=== PATIENT | female | born 1950 | race Caucasian/White ===

== ENCOUNTER 2017-12-29 08:00 | Inpatient (IN) | payer OTHER ==
--- NOTE | 2017-12-29 09:39 | RAD REPORT ---
EXAM DESCRIPTION: Tra Berry And Lat (2 Views)12/29/2017 9:15 am CLINICAL HISTORY: Hypertension/preop for knee replacement COMPARISON: None FINDINGS: The lung interstitial pattern is mildly prominent. The heart is mildly enlarged IMPRESSION: Mild bilateral interstitial lung opacities probably are chronic. Mild superimposed inter stitial pulmonary edema could also have this appearance
[2017-12-29 11:11] LABS: Protime INR 0.95
[2017-12-29 11:14] LABS: Absolute Lymphocytes (CBC) 1.9 K/uL (0.7-4.9); Absolute Monocytes 0.5 K/uL (0.1-1.3); Absolute Neutrophil 3.4 K/uL (1.8-8.0); Basophils % 1.1 % (0-1.3); Eosinophils % 4.3 % (0-4.4); Lymphocytes % 30.9 % (15.3-44.8); MCH 31.2 pg (27.0-35.0); MCV 92.7 fL (80-100); MPV 9.1 fL (7.6-11.3); Monocytes % 8.5 % (3.3-12.3); Potassium 3.9 mmol/L (3.5-5.1); RBC Red Blood Cell Count 4.21 M/uL (3.86-4.86)
--- NOTE | 2017-12-30 11:00 | EKG ---
Test Date: 2017-12-29 Test Time: 09:05:42 Drafter Mechanical: MERCEDES MEASUREMENT RESULTS: Intervals: Rate: 61 ME: 166 QRSD: 80 QT: 404 QTc: 406 [place]: P: 23 ME: 166 QRS: -4 T: 4 INTERPRETIVE STATEMENTS: Normal sinus rhythm Normal ECG Compared to ECG 01/14/2006 06:40:00 No significant changes Electronically Signed On 12-30-17 10:56:04 CDT by Wei Mcintyre
[2018-01-03] MEDS ORDERED: CEFAZOLIN/SWI 2gm 2 GM/20 ML SYR IV SCH (06:00)
--- OUTSIDE RECORDS SUMMARY | 2018-01-03 06:09 | XMS REPORT | Clinical Summary ---
:1950 Author Organization [facility] Address [address] [place] [address] Care Team Providers Name Role Phone Merlin Serrato MD Primary Care Provider Allergies Active Allergy Reactions Severity Noted Date Comments No Known Drug Allergies 09/25/2015 Nsaids (Non-Steroidal Anti-Inflammatory 08/10/2016 Ulcer disease Drug) Current Medications Prescription Sig. Disp. Refills Start Date End Date Status HYDROcodone-acetami Take 1 tablet by 0 07/08/2016 Active nophen (NORCO) mouth 2 (two) 5-325 mg per tablet times a day as needed. for pain metoprolol Take 100 mg by Active succinate XL mouth daily. (TOPROL-XL) 100 mg 24 hr tablet levothyroxine Take 112 mcg by Active (SYNTHROID, mouth every LEVOXYL) 112 mcg morning. tablet aspirin (ECOTRIN) Take 81 mg by Active 81 MG enteric mouth daily. coated tablet cholecalciferol, Take 2,000 Units Active vitamin D3, by mouth daily. (VITAMIN D3) 2,000 unit capsule capsule meloxicam (MOBIC) TAKE 1 TABLET BY 30 tablet 0 12/14/2016 Active 15 mg tablet MOUTH EVERY DAY ibuprofen Take 200 mg by Active (ADVIL,MOTRIN) 200 mouth every 6 MG tablet (six) hours as needed for mild pain. ketoconazole Apply 1 Active (NIZORAL) 2 % cream application topically 2 (two) times a day. diclofenac Apply topically 3 Tube 5 06/29/2017 Active (VOLTAREN) 1 % gel 4 (four) times a day. lidocaine Apply topically 35.44 g 0 08/10/2016 (XYLOCAINE) 5 % as needed for 8 ointment mild pain. diclofenac Apply topically 3 Tube 5 08/10/2016 Discontinued (VOLTAREN) 1 % gel 4 (four) times a 8 day. Active Problems Problem Noted Date Hypothyroidism 09/25/2015 Osteoarthritis 09/25/2015 H/O GI ulcers 09/25/2015 Fatigue H/O heartburn Encounters Date Type Specialty Care Team Description 07/10/2017 Orders Only Rheumatology Elsi Chang MD 07/06/2017 Orders Only Rheumatology Elsi Chang MD 06/29/2017 Office Visit Rheumatology Hermelinda Ayala Primary osteoarthritis involving multiple joints (Primary Dx); MD Kelli Hypothyroidism, unspecified type; Pain in joint, multiple sites; Fatigue, unspecified type; Rash 01/14/2017 Refill Rheumatology Hermelinda Ayala MD after 01/02/2017 Family History Medical History Relation Name Comments Rheum arthritis Cousin Relation Name Status Comments Brother (Age 51) COPD Brother (Age 50) massive stroke Cousin Father (Age 84) heart disease Social History Tobacco Use Types Packs/Day Years Used Date Unknown If Ever Smoked Smokeless Tobacco: Never Used Alcohol Use Drinks/Week oz/Week Comments No not found Sex Assigned at Date Recorded Not on file Last Filed Vital Signs Vital Sign Reading Time Taken Blood Pressure 131/71 06/29/2017 11:33 AM CDT Pulse 72 06/29/2017 11:33 AM CDT Temperature - - Respiratory Rate - - Oxygen Saturation - - Inhaled Oxygen Concentration - - Weight 81.6 kg (180 lb) 06/29/2017 11:33 AM CDT Height 154.9 cm (5' 1") 06/29/2017 11:33 AM CDT Body Mass Index 34.01 06/29/2017 11:33 AM CDT Plan of Treatment Health Maintenance Due Date Last Done Comments BREAST CANCER SCREENING 2000 COLON CANCER SCREENING 2000 SHINGRIX VACCINE (#1) 2000 ZOSTER VACCINE 2010 PNEUMOCOCCAL POLYSACCHARIDE VACCINE AGE 65 AND OVER 10/22/2015 PNEUMOCOCCAL-13 10/22/2015 INFLUENZA VACCINE 11/08/2017 Procedures Procedure Name Priority Date/Time Associated Diagnosis Comments [id number] Routine 06/30/2017 12:00 AM CDT XR KNEE 3 VW LEFT Routine 06/30/2017 12:00 AM CDT XR KNEE 3 VW RIGHT Routine 06/30/2017 12:00 AM CDT XR HIPS BILATERAL AP Routine 06/30/2017 12:00 LATERAL W AP PELVIS AM CDT GA ARTHROCENTESIS Routine 06/29/2017 11:20 Primary Results for this ASPIR&/INJ MAJOR AM CDT osteoarthritis procedure are in JT/BURSA W/O US involving multiple the results joints section. after 01/02/2017 Results Miscellaneous Lab Result (06/30/2017) Specimen Blood Narrative Performed At XR Knee 3 Vw Right (06/30/2017) Narrative Performed At XR Knee 3 Vw Left (06/30/2017) Narrative Performed At XR Hips Bilateral Ap Lateral W Ap Pelvis (06/30/2017) Narrative Performed At Large Joint Arthrocentesis (06/29/2017 11:20 AM) Narrative Performed At Hermelinda Ayala MD 06/29/2017 12:17 PM Large Joint Arthrocentesis Consent given by: patient Site marked: site marked Supporting Documentation Indications: pain Procedure Details Preparation: Patient was prepped and draped in the usual sterile fashion Location: knee - Bilateral knee Right side: Needle size: 23 G Right knee medications administered: 80 mg methylPREDNISolone acetate 80 mg/mL; 0.5 mL lidocaine 10 mg/mL (1 %) Patient tolerance: patient tolerated the procedure well with no immediate complications Left side: Needle size: 23 G Left knee medications administered: 80 mg methylPREDNISolone acetate 80 mg/mL; 0.5 mL lidocaine 10 mg/mL (1 %) Patient tolerance: patient tolerated the procedure well with no immediate complications after 01/02/2017 Insurance Payer Benefit Plan / Group Subscriber ID Type Phone Address [facility] xxxxxxxxxxx Commercial MEDICARE MEDICARE PART A AND B xxxxxxxxxx Medicare [place], [place] Work: [address] y [phone] [place] [phone] Home: [phone] [facility]
[2018-01-03] MEDS ORDERED: Ringers Lactate 1,000 ML IV ONE ×3 (06:24→12:07)
[2018-01-03] MEDS ORDERED: SCOPOLAMINE HYDROBROMIDE PATCH TD ONE (06:31)
[2018-01-03] MEDS ORDERED: FENTANYL CITR 250 MCG/5 ML ONE (06:58)
[2018-01-03] MEDS ORDERED: MIDAZOLAM HCL 2 MG/2 ML INJ ONE (06:58)
[2018-01-03] MEDS ORDERED: DEXAMETHASONE 4 MG/ML VIAL ONE (06:58)
[2018-01-03] MEDS ORDERED: ROPLVACAINE HCL 40 ML ONE (06:58)
[2018-01-03] MEDS ORDERED: PROPOFOL 200 MG/20 ML VIAL IV ONE (06:58)
[2018-01-03] MEDS ORDERED: LIDOCAINE 2% MPF 5 ML VIAL ONE (07:33)
[2018-01-03] MEDS ORDERED: BUPIVACA 0.5%/EPI 0.0005%/PF 30 ML VIAL ONE (07:35)
[2018-01-03] MEDS ORDERED: GLYCOPYRROLATE 0.2 MG/ML SYR ONE (07:59)
[2018-01-03] MEDS ORDERED: TRANEXAMIC ACID 1,000 MG in NA CHLORIDE 0.9% 50 ML IV ONE (08:00)
[2018-01-03] MEDS ORDERED: EPHEDRINE SULF 50 MG/10 ML SYR ONE (08:01)
[2018-01-03] MEDS ORDERED: MORPHINE 10 MG/ML VIAL ONE (09:34)
[2018-01-03] MEDS: MORPHINE 4 MG/ML SYR IV PRN ×5 (11:00→21:35)
[2018-01-03] MEDS ORDERED: MORPHINE 4 MG/ML SYR ONE (11:02)
--- NOTE | 2018-01-03 11:02 | P.BOP ---
Preoperative diagnosis: left knee osteoarthritis Postoperative diagnosis: same Primary procedure: left total knee arthroplasty Environmental Project Manager: NONE,NONE Estimated blood loss: 20 cc Specimen: left knee bone remnants Findings: see dictation Anesthesia: General Complications: None Drain(s): Urinary catheter Implants: Biomet Size 65 CR Femur, Size 71 Tibia, Size 34 patella, 10 mm E- poly Fluids & blood products: per anesthesia; TT: 110 mins @ 300 mmHg Transferred to: Recovery Room Condition: Good
[2018-01-03] MEDS ORDERED: DOCUSATE NA 100 MG CAP PO PRN (11:04)
--- NOTE | 2018-01-03 11:48 | RAD REPORT ---
EXAM DESCRIPTION: RAD - Knee Left 2 View - 01/03/2018 11:42 am CLINICAL HISTORY: Post Op Left TKA COMPARISON: Knee Left 3 View dated 06/30/2017; Knee Left 3 view dated 01/16/2015 FINDINGS: Left total knee arthroplasty has been performed. Small amount of air is present in the fuad nt space. No unexpected findings seen.
[2018-01-03 11:55] LABS: Hematocrit 36.2 % (36.0-45.0)
[2018-01-03] MEDS: ONDANSETRON 4 MG/2 ML VIAL IV PRN ×2 (12:05→17:03)
[2018-01-03] MEDS: FENTANYL CITR 100 MCG/2 ML ONE ×2 (12:05→12:20)
[2018-01-03] MEDS ORDERED: INFLUENZA VACCINE (for 3y+) 0.5 ML DOSE IMVAC ONE (15:00)
[2018-01-03] MEDS ORDERED: PNEUMOCOCCAL VACCINE 0.5 ML IMVAC ONE (15:00)
[2018-01-03] MEDS: CEFAZOLIN/SWI 2gm 2 GM/20 ML SYR IV SCH (17:02)
[2018-01-03] MEDS: OXYCODONE *CR* 10 MG TAB PO SCH (21:00)
[2018-01-04] MEDS: CEFAZOLIN/SWI 2gm 2 GM/20 ML SYR IV SCH ×2 (00:49→08:23)
[2018-01-04] MEDS: OXYCODONE *CR* 10 MG TAB PO SCH ×3 (00:58→21:17)
[2018-01-04] MEDS: METOPROLOL XL 100 MG TAB PO SCH (06:00)
[2018-01-04] MEDS: ENOXAPARIN 30 MG/0.3 ML SQ SCH ×2 (06:09→17:41)
[2018-01-04] MEDS: LEVOTHYROXINE SOD 0.112 MG TAB PO SCH (07:39)
[2018-01-04] MEDS: PANTOPRAZOLE 40MG TABLET PO SCH (07:39)
[2018-01-04] MEDS: VITAMIN D 1000 UNIT TAB PO SCH (08:23)
[2018-01-04] MEDS: CELECOXIB 100 MG CAPSULE PO SCH (08:23)
[2018-01-04] MEDS: PARoxetine HCl 10 MG TAB PO SCH (08:24)
[2018-01-04] MEDS: HYDROCODONE/APAP 7.5/325 MG TAB PO PRN ×3 (08:28→17:45)
[2018-01-04 08:59] LABS: Absolute Lymphocytes (CBC) 2.5 K/uL (0.7-4.9); Absolute Monocytes 1.5 K/uL (0.1-1.3); Absolute Neutrophil 8.4 K/uL (1.8-8.0); Basophils % 0.4 % (0-1.3); Eosinophils % 0.1 % (0-4.4); Hematocrit 34.3 % (36.0-45.0); Lymphocytes % 19.8 % (15.3-44.8); MCH 31.2 pg (27.0-35.0); MCV 92.2 fL (80-100); MPV 8.8 fL (7.6-11.3); Monocytes % 12.2 % (3.3-12.3); RBC Red Blood Cell Count 3.72 M/uL (3.86-4.86)
[2018-01-04 09:19] LABS: Potassium 4.3 mmol/L (3.5-5.1)
--- NOTE | 2018-01-04 09:21 | OP ---
Date of Procedure: 01/03/2018 Surgeon: Dante Partida MD Preoperative Diagnosis: Left knee osteoarthritis. Postoperative Diagnosis: Left knee osteoarthritis. Procedure Performed: Left total knee arthroplasty. Anesthesia: General LMA. Fluids: Per Anesthesia record. Estimated Blood Loss: 20 cc. Complications: None. Implants: Biomet size 65 CR femur, size 71 tibia, size 34 patella, and a 10 mm E anterior stabilized poly. Tourniquet Time: 110 minutes at 300 mmHg. Indication For Procedure: Gifty is a 67-year-old female who presented to my clinic with signs, symptoms, and x-ray findings consistent with severe left knee osteoarthritis. The patient failed conservative treatment measures. I discussed with the patient at length risks and benefits associated with operative and nonoperative treatment. She expressed understanding and elected to proceed with operative treatment. Description Of Procedure: After informed consent was obtained, the patient was identified in the preoperative holding area. The left lower extremity was marked. The patient was then taken back to the PACU where she underwent a femoral nerve block performed by Anesthesia. She was then transferred to the operating room, transferred to the operative table in a supine fashion and placed under general LMA anesthesia. The left lower extremity was then prepped and draped in usual sterile fashion. A time-out was initiated. Correct patient and procedure were confirmed and identified. The patient did receive her preoperative prophylactic antibiotics. The left lower extremity was then exsanguinated using an Esmarch, and the tourniquet was inflated to 300 mmHg. Approximately 15 cm longitudinal incision was centered over the anterior aspect of the knee. Dissection was taken down to the extensor mechanism. A median parapatellar arthrotomy was performed. The fat pad was excised as well as the medial and lateral meniscus as well as the ACL. The knee was placed in flexion , and the patella was everted. The patient had significant osteophyte formation over the superior aspect of the patella. Osteophytes were removed around the patella for later preparation for the patellar button. Next, attention was taken to the distal femur. The patient has had a preoperative MRI , and cutting block was made for her knee using the preoperative MRI Biomet System. The guide was then placed on the end of the distal femur, and the pins were placed. The distal femoral cutting block was then placed over the guide pin and held in position. An Sg wing was then used to ensure proper depth of the cut. The distal femoral cut was then made to create a flat surface. Next, the chamfer cutting block was then placed over the distal femur, and the anterior and posterior cuts were made as well as the anterior and posterior chamfer cuts. Bony remnants were then removed, and they were sent to pathology. The patient did have some tightness medially, and soft tissue was elevated off the proximal tibia medially to help loosen up some of the medial structures. Next, attention was taken to the proximal tibia. Again, the cutting guide that was made preoperatively was placed on the proximal tibial. Guide pins were placed. An alignment pierre was used to ensure proper alignment for the cuts to be made. When that was confirmed, pins were placed to lock the cutting block in position and the proximal tibia was then cut. Trial implants were placed and there was some tightness in both flexion and extension at that point. Two additional mm were cut on the proximal tibia. The trial implants were then placed, and there was good gapping and stability in both flexion and full extension. The placement of the tibial tray was then marked using the Bovie cautery on the proximal tibia. Next, attention was taken down to the patella and the patella was measured with a caliper to ensure proper depth of the cut, it was then cut and a size 34 mm patella was selected. The patella was drilled. The patella button was placed, and there was good overall stability in both flexion and extension. The femur was drilled, and the trial implant was removed. Next, proper sizing of the tibial tray was selected when using a size 71 tray. Once in proper position, it was repaired as well. The knee was then irrigated thoroughly with normal saline using a pulse lavage, and the cement was prepared on the back table. Attention was first taken to the proximal tibia. Cement was placed on the proximal tibia and within the punched out area, and the implant was then placed into position. Elevator was then used to remove the excess cement. Cement was then placed on the distal femur. The distal femoral implant was selected. A 10 mm trial poly was then placed. The knee was held in extension as the cement dried. Next, cement was placed on the undersurface of the patella and the final patella button was placed. After the cement hardened, the knee was placed through flexion and extension and it was overall with good stability. There was some small mild instability with anterior to posterior translation and an anterior stabilized poly was then selected. The 10 mm anterior stabilized poly was placed and there was overall good stability and gapping noted with the 10 mm anterior stabilized poly. The final polyethylene liner was put into position. The splint was placed. The knee was then irrigated thoroughly with normal saline. The extensor mechanism was closed using interrupted and running #1 Vicryl. Next, deep fascia was approximated using 0 Vicryl and subcutaneous tissue was approximated using a 2- 0 Vicryl. Skin was approximated using a 3-0 nylon. Sterile dressings were placed. Prior to closure, the tourniquet has been let down. Hemostasis was achieved using Bovie electrocautery. Sterile dressing was placed followed by an MARIANA bandage. The patient was awakened and transferred to PACU in stable condition. Postoperative Plan: We will admit the patient to the floor for pain control as well as consulting with Physical Therapy to aide with mobilization, the patient will likely be admitted for 2 midnights. DAYANARA/NATALIE Voice ID: [id number] Report ID: [id number] KAMILA
--- NOTE | 2018-01-04 11:19 | P.PN ---
Subjective Date of Service: 01/04/18 Chief Complaint: s/p L TKA Pain controlled. Physical Examination - Vital Signs Temperature: 97.9 F Blood Pressure: 100/47 Pulse: 67 Respirations: 20 Pulse Ox (%): 96 - Physical Exam General: Alert, In no apparent distress Musculoskeletal: Other (LLE: dressing c/d/i; in CPM; +EHL/FHL/GSC/TA; sensation grossly intact distally) - Studies Laboratory Data (last 24 hrs) 01/04/18 08:27: Sodium 139, Potassium 4.3, BUN 21 H, Creatinine 0.90, Glucose 109 H 01/04/18 08:27: WBC 12.5 H D, Hgb 11.6 L, Hct 34.3 L, Plt Count 309 01/03/18 11:25: Hgb 12.6, Hct 36.2 Assessment And Plan - Plan Gifty is a 67 yo female s/p L TKA POD#1 -PT to mobilize WBAT LLE -lovenox for DVT prophylaxis -metoprolol held this AM with low BP; will continue to monitor blood pressure -will f/u H/H and BMP later this morning
[2018-01-04] MEDS: MORPHINE 4 MG/ML SYR IV PRN (22:36)
[2018-01-05] MEDS: HYDROCODONE/APAP 7.5/325 MG TAB PO PRN ×2 (05:06→14:20)
[2018-01-05] MEDS: LEVOTHYROXINE SOD 0.112 MG TAB PO SCH (05:07)
[2018-01-05] MEDS: ENOXAPARIN 30 MG/0.3 ML SQ SCH ×2 (05:07→18:30)
[2018-01-05] MEDS: METOPROLOL XL 100 MG TAB PO SCH (05:08)
[2018-01-05] MEDS: PANTOPRAZOLE 40MG TABLET PO SCH (05:09)
--- NOTE | 2018-01-05 08:58 | P.PN ---
Subjective Date of Service: 01/05/18 Chief Complaint: s/p L TKA Subjective: Ambulating, Improving, Working w/ PT Some increased pain overnight as block wore off. Pain now controlled. Physical Examination - Vital Signs Temperature: 97.7 F Blood Pressure: 99/51 Pulse: 71 Respirations: 17 Pulse Ox (%): 90 - Physical Exam General: Alert, In no apparent distress Musculoskeletal: Other (RLE: dressing c/d/i; +EHL/FHL/GSC/TA; sensation grossly intact distally) - Studies Laboratory Data (last 24 hrs) 01/04/18 08:27: Sodium 139, Potassium 4.3, BUN 21 H, Creatinine 0.90, Glucose 109 H 01/04/18 08:27: WBC 12.5 H D, Hgb 11.6 L, Hct 34.3 L, Plt Count 309 Assessment And Plan - Plan Gifty is a 67 yo female s/p L TKA POD#2 -PT to mobilize WBAT LLE -lovenox for DVT prophylaxis -H/H stabilizing with labs yesterday -BP normalizing today; no difficulty with standing/ambulating with PT; will continue to monitor blood pressure -IP setup for HHPT on Monday -likely d/c in AM
[2018-01-05] MEDS: OXYCODONE *CR* 10 MG TAB PO SCH ×2 (09:48→21:16)
[2018-01-05] MEDS: CELECOXIB 100 MG CAPSULE PO SCH (09:49)
[2018-01-05] MEDS: VITAMIN D 1000 UNIT TAB PO SCH (09:49)
[2018-01-05] MEDS: PARoxetine HCl 10 MG TAB PO SCH (09:49)
[2018-01-05] MEDS: MORPHINE 4 MG/ML SYR IV PRN (14:54)
[2018-01-06] MEDS: HYDROCODONE/APAP 7.5/325 MG TAB PO PRN ×2 (02:36→12:50)
[2018-01-06] MEDS: LEVOTHYROXINE SOD 0.112 MG TAB PO SCH (05:24)
[2018-01-06] MEDS: PANTOPRAZOLE 40MG TABLET PO SCH (05:24)
[2018-01-06] MEDS: ENOXAPARIN 30 MG/0.3 ML SQ SCH (05:25)
[2018-01-06] MEDS: METOPROLOL XL 100 MG TAB PO SCH (06:00)
--- NOTE | 2018-01-06 09:42 | P.PN ---
Subjective Date of Service: 01/06/18 Chief Complaint: s/p L TKA Subjective: Ambulating, Improving, Working w/ PT Pain improved this AM. Ready to go home. Physical Examination - Vital Signs Temperature: 97.9 F Blood Pressure: 105/51 Pulse: 72 Respirations: 16 Pulse Ox (%): 94 - Physical Exam General: Alert, In no apparent distress Musculoskeletal: Other (LLE: incision c/d/i; no erythema or active drainage; + EHL/FHL/GSC/TA; sensation grossly intact distally) Assessment And Plan - Plan Gifty is a 67 yo female s/p L TKA POD#3 -PT to mobilize WBAT LLE -lovenox for DVT prophylaxis; discharged on Xarelto; patient has prescription for [place] and Xarelto at home already -BP stable -[facility] setup for HHPT on Monday -d/c after AM PT
[2018-01-06] MEDS: PARoxetine HCl 10 MG TAB PO SCH (09:44)
[2018-01-06] MEDS: CELECOXIB 100 MG CAPSULE PO SCH (09:44)
[2018-01-06] MEDS: OXYCODONE *CR* 10 MG TAB PO SCH (09:44)
[2018-01-06] MEDS: VITAMIN D 1000 UNIT TAB PO SCH (09:44)
--- NOTE | 2018-01-06 09:50 | P.DS ---
Admission Date: 01/03/18 Discharge Date: 01/06/18 Disposition: ROUTINE DISCHARGE Discharge Condition: GOOD Reason for Admission: s/p L TKA Procedures: L TKA Brief History of Present Illness: Gifty is a 67 yo female s/p left TKA on 01/03/2018 without complication. She was admitted to the floor postoperatively for pain control, physical therapy to aid with mobilization and strengthening and blood pressure monitoring with her history of hypertension. Hospital Course: Gifty underwent L TKA without complication. She was admitted to the floor in stable condition and remained stable throughout her hospital course. Her vital signs remained stable and her H/H was monitored. While in the hospital, she was given lovenox for DVT prophylaxis and was discharged with Xarelto and [place] which she had picked up prior to admission. She will return to my clinic in a week and a half for suture removal. PT was setup for the patient prior to discharge. Vital Signs/Physical Exam: Temp Pulse Resp BP Pulse Ox 97.9 F 72 16 105/51 L 94 01/06/18 09:41 01/06/18 09:41 01/06/18 09:41 01/06/18 09:41 01/06/18 09:41 Laboratory Data at Discharge: WBC 12.5 K/uL (4.3-10.9) H D 01/04/18 08:27 Hgb 11.6 g/dL (12.0-15.0) L 01/04/18 08:27 Hct 34.3 % (36.0-45.0) L 01/04/18 08:27 Plt Count 309 K/uL (152-406) 01/04/18 08:27 PT 11.2 SECONDS (9.5-12.5) 12/29/17 09:00 INR 0.95 12/29/17 09:00 APTT 33.1 SECONDS (24.3-36.9) 12/29/17 09:00 Sodium 139 mmol/L (136-145) 01/04/18 08:27 Potassium 4.3 mmol/L (3.5-5.1) 01/04/18 08:27 BUN 21 mg/dL (7-18) H 01/04/18 08:27 Creatinine 0.90 mg/dL (0.55-1.3) 01/04/18 08:27 Glucose 109 mg/dL (74-106) H 01/04/18 08:27 Home Medications: Levothyroxine [Synthroid*] 112 mcg PO DAILY 03/20/15 Metoprolol Succinate [Toprol Xl*] 100 mg PO [id number] 03/20/15 Cholecalciferol (Vitamin D3) [Vitamin D 1000 Iu Tab*] 1,000 unit PO DAILY Esomeprazole Mag Trihydrate [Nexium] 40 mg PO DAILY 12/29/17 Meloxicam 7.5 mg PO DAILY 12/29/17 PARoxetine HCl [Paxil*] 10 mg PO DAILY 12/29/17 Cholecalciferol (Vitamin D3) [Vitamin D 1000 Iu Tab*] 1,000 unit PO DAILY tab 01/06/18 Hydrocodone 7.5/APAP 325 [[place]enn 7.5/325 mg*] 1 tab PO Q4H PRN tab 01/06/18 Patient Discharge Instructions: change dressing to left knee on Wednesday 01/10 with hang pelaez; keep dressing clean and dry Diet: Regular Activity: Weight bearing as tolerated Followup: Dante Partida MD [ACTIVE - CAN ADMIT] - 01/16/18
[2018-01-06] MEDS ORDERED: INFLUENZA VACCINE (for 3y+) 0.5 ML DOSE IMVAC ONE (11:28)
[2018-01-06] MEDS ORDERED: PNEUMOCOCCAL VACCINE 0.5 ML IMVAC ONE (11:28)
== END 2018-01-06 14:55 | disposition home health service (06) | DRG 470 ==
LOC: EDSTATUS 08:00 → DSO 01-03 06:07 → 2ND 01-03 12:57
PROVIDERS: ADMIT Orthopaedic Surgery Sports Medicine; ATTEND Orthopaedic Surgery Sports Medicine
PROC: 0SRD0J9 Replacement of Left Knee Joint with Synthetic Substitute, Cemented, Open Approach (ICD-10-PCS; principal; 2018-01-03 07:30)
DX: M17.12 Unilateral primary osteoarthritis, left knee (principal); Z23 Encounter for immunization
CPT/HCPCS: 36415; 71046; 80048; 85014; 85018; 85025; 85610; 85730; 88304; 88311; 90670; 93005; 97163; G0008; G0009; J0690; J1650; J2250; J2405; J2795; J3010; Q2035

== ENCOUNTER → 2018-03-26 | Day surgery (SDC) | payer OTHER ==
--- OUTSIDE RECORDS SUMMARY | 2018-03-26 10:45 | XMS REPORT | Clinical Summary ---
:1950 Author Organization [facility] Address [address] [place] [address] Care Team Providers Name Role Phone Merlin Serrato MD Primary Care Provider Allergies Active Allergy Reactions Severity Noted Date Comments No Known Drug Allergies 09/25/2015 Nsaids (Non-Steroidal Anti-Inflammatory 08/10/2016 Ulcer disease Drug) Medications Medication Sig Dispensed Refills Start Date End Date Status HYDROcodone-acetami Take 1 tablet by 0 07/08/2016 Active nophen (NORCO) mouth 2 (two) 5-325 mg per tablet times a day as needed. for pain metoprolol Take 100 mg by 0 Active succinate XL mouth daily. (TOPROL-XL) 100 mg 24 hr tablet levothyroxine Take 112 mcg by 0 Active (SYNTHROID, mouth every LEVOXYL) 112 mcg morning. tablet aspirin (ECOTRIN) Take 81 mg by 0 Active 81 MG enteric mouth daily. coated tablet cholecalciferol, Take 2,000 Units 0 Active vitamin D3, by mouth daily. (VITAMIN D3) 2,000 unit capsule capsule meloxicam (MOBIC) TAKE 1 TABLET BY 30 tablet 0 12/14/2016 Active 15 mg tablet MOUTH EVERY DAY ibuprofen Take 200 mg by 0 Active (ADVIL,MOTRIN) 200 mouth every 6 MG tablet (six) hours as needed for mild pain. ketoconazole Apply 1 0 Active (NIZORAL) 2 % cream application topically [...] joint, multiple sites; Fatigue, unspecified type; Rash after 03/25/2017 Family History Medical History Relation Name Comments Rheum arthritis Cousin Relation Name Status Comments Brother (Age 51) COPD Brother (Age 50) massive stroke Cousin Father (Age 84) heart disease Social History Tobacco Use Types Packs/Day Years Used Date Unknown If Ever Smoked Smokeless Tobacco: Never Used Alcohol Use Drinks/Week oz/Week Comments No not found Sex Assigned at Date Recorded Not on file Job Start Date Occupation Industry Not on file Not on file Not on file Travel History Travel Start Travel End No recent travel history available. Last Filed Vital Signs Vital Sign Reading [...] CANCER SCREENING 2000 COLON CANCER SCREENING 2000 SHINGLES VACCINES (1 of 2) 2000 PNEUMOCOCCAL POLYSACCHARIDE VACCINE AGE 65 AND OVER 10/22/2015 PNEUMOCOCCAL-13 10/22/2015 INFLUENZA VACCINE 11/08/2017 Procedures Procedure Name Priority Date/Time Associated Diagnosis Comments [id number] Routine 06/30/2017 XR KNEE 3 VW LEFT Routine 06/30/2017 XR KNEE 3 VW RIGHT Routine 06/30/2017 XR HIPS BILATERAL AP Routine 06/30/2017 LATERAL W AP PELVIS SC ARTHROCENTESIS Routine 06/29/2017 11:20 Primary Results for this ASPIR&/INJ MAJOR AM CDT osteoarthritis procedure are in JT/BURSA W/O US involving multiple the results joints section. after 03/25/2017 Results Miscellaneous Lab Result (06/30/2017) Specimen Blood Narrative Performed At XR Knee 3 Vw Right (06/30/2017) Narrative Performed At XR Knee 3 Vw Left (06/30/2017) Narrative Performed At XR Hips Bilateral Ap Lateral W Ap Pelvis (06/30/2017) Narrative Performed At Large Joint Arthrocentesis (06/29/2017 11:20 AM CDT) Narrative Performed At Hermelinda Ayala MD 06/29/2017 [...] procedure well with no immediate complications after 03/25/2017 Insurance Payer Benefit Plan / Group Subscriber ID Type Phone Address [facility] xxxxxxxxxxx Commercial MEDICARE MEDICARE PART A AND B xxxxxxxxxx Medicare [place], [place] [phone] (Work) Advance Directives Patient has advance care planning documents on file. For more information, please contact:Sebastian Moh[address] [place] [address]
[2018-03-26 13:05] LABS: Albumin 3.6 g/dL (3.4-5.0); Bilirubin Total 0.5 mg/dL (0.2-1.0); Potassium 4.2 mmol/L (3.5-5.1); Protein, Total 7.2 g/dL (6.4-8.2); Thyroid Stimulating Hormone 0.185 uIU/mL (0.360-3.740)
--- NOTE | 2018-03-26 13:26 | RAD REPORT ---
EXAM DESCRIPTION: US - Breast Core BX w/US Guidance - 03/26/2018 11:20 am CLINICAL HISTORY: ICD N63.0 TECHNIQUE: The patient's prior ultrasound of March 21, 2018 was reviewed. The risks, benefits and alternatives to the procedure were explained to the patient and informed cons ent obtained. The skin, subcutaneous and deeper tissues were anesthetized with Lidocaine. Under fluoroscopic guidan ce three 14-gauge vacuum assisted core biopsies of the mass within the upper right breast were perfor med. 2 centimeter core specimens were obtained and given to pathology. Subsequently a localizing clip was placed. The patient experienced no immediate complication. IMPRESSION: Vacuum assisted core biopsies of a mass within the upper right breast.
== END | disposition home or self-care (01) ==
LOC: DS 10:37
PROVIDERS: ATTEND Internal Medicine
PROC: 0HBT3ZX Excision of Right Breast, Percutaneous Approach, Diagnostic (ICD-10-PCS; principal; 2018-03-26)
DX: C50.911 Malignant neoplasm of unspecified site of right female breast (principal); Z17.0 Estrogen receptor positive status [ER+]; E03.9 Hypothyroidism, unspecified; E78.2 Mixed hyperlipidemia
CPT/HCPCS: 19083; 36415; 80053; 80061; 84443; 88305

== ENCOUNTER 2022-06-30 11:30 | Emergency (ER) | payer OTHER, MEDICARE ==
--- OUTSIDE RECORDS SUMMARY | 2022-06-30 11:36 | XMS REPORT | Clinical Summary ---
:1950 Author Organization [facility] MD [facility] Address [address] [place] [address] Care Team Providers Name Role Phone Merlin Serrato MD Unavailable Unavailable Sujey Hobson PAPETERIE TABLE ASSEMBLER Unavailable Tamica Craven NP Primary Care Provider Allergies Active Allergy Reactions Severity Noted Date Comments Adhesive Rash, Other (See Comments) High 05/29/2018 T egaderm - itching, rednness; laste d 5 months Tramadol GI Intolerance 09/28/2018 nausea Medications Medication Sig Dispensed Refills Start End Date Status Date diclofenac sodium Apply 1 0 Ac tive (Voltaren) 1 % gel application 8 topically to affected area(s) as needed. levothyroxine Take 1 tablet 0 Ac tive (SYNTHROID, (88 mcg) by LEVOTHROID) 88 mcg mouth daily. tablet artificial tears, Administer 1 50 each 1 Active carboxymethylcellu drop to both 9 lose, (REFRESH eyes 4 (four) PLUS) 0.5% times a day. 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 : Zinc deficiency cholecalciferol, Take 1,000 unit 0 Active vitamin D3, marking on (VITAMIN D3 ORAL) U-100 syringe by mouth daily. ascorbic acid, Take 1 tablet 0 A ctive vitamin C, (1,000 mg) by (VITAMIN C) 1000 mouth daily. mg tabletIndications: vitamin C deficiency omeprazole TAKE 1 CAPSULE 90 capsule 1 Act ervin (PriLOSEC) 40 MG BY MOUTH EVERY 1 capsuleIndications DAY 30 MINUTES : Infiltrating BEFORE duct carcinoma of BREAKFAST overlapping sites of right female breast, Encounter for chemotherapy, Reflux esophagitis MAGNESIUM ORAL Take 1 tablet 0 A ctive by mouth daily. sodium Apply to teeth 1 Bottle 12 Activ e fluoride-potassium twice daily. 1 nitrate (Prevident 5000 Enamel Protect) 1.1%-5% pste dental pasteIndications: Toothache, Oral infection metoprolol Take 1 tablet 90 tablet 3 Activ e succinate (TOPROL (25 mg) by 2 XL) 25 mg 24 hr mouth daily. tabletIndications: Hypertension furosemide (LASIX) Take 1 tablet 90 tablet 3 Active 20 mg (20 mg) by 2 tabletIndications: mouth daily as Localized edema needed for edema. venlafaxine TAKE ONE (1) 0 Activ e (EFFEXOR-XR) 37.5 CAPSULE(S) BY 2 mg 24 hr capsule MOUTH EVERY MORNING. erythromycin Apply a thin 3.5 g 1 Acti ve (ROMYCIN) strip of 2 ophthalmic ointment over ointmentIndication bilateral s: Blepharitis eyelids at <Unspecified side; night time Unspecified eyelid> clobetasol Apply topically 60 g 1 Act ervin (Temovate) 0.05% to affected 2 creamIndications: area(s) twice Hand eczema daily. to affected areas on hands BID prn flares triamcinolone Apply topically 454 g 1 Active (KENALOG) 0.1% to affected 2 creamIndications: area(s) twice Hand eczema daily. to areas of rash. Avoid face, armpit, groin bimatoprost Administer 1 5 mL 5 03/07/20 Activ e (LATISSE) 0.03 % application to 2 23 ophthalmic both eyes at solutionIndication bedtime. s: 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; Unspecified eyelid> ferrous sulfate Take 1 tablet 90 tablet 1 Active 325 (65 FE) MG EC (325 mg) by 3 tabletIndications: mouth every Iron deficiency other day. anemia, not otherwise specified anastrozole Take 1 tablet 90 tablet 3 Acti ve (ARIMIDEX) 1 mg (1 mg) by mouth 3 tabletIndications: daily. Infiltrating duct carcinoma, 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; Right> hydrocortisone 1% Apply 1 0 07/03/19 Di scontinued cream application 22 (Not [place] licable) topically to affected area(s) as needed. PARoxetine (PAXIL) Take 10 mg by 0 0 Discontinued 10 mg tablet mouth every 22 (Not Applicable) morning. ferrous sulfate Take 1 tablet 90 tablet 1 05/13/19 Discontinued 325 (65 FE) MG EC (325 mg) by 0 23 (Reorder) tabletIndications: mouth daily. Iron deficiency anemia, not otherwise specified metoprolol Take 1 tablet 90 tablet 3 09/30/19 Disco ntinued succinate (TOPROL (50 mg) by 0 22 ( Reorder) XL) 50 mg 24 hr mouth daily. tabletIndications: Hypertension triamcinolone APPLY TO 454 g 5 03/07/20 Discon tinued (KENALOG) 0.1% AFFECTED AREA 0 22 ( Reorder) ointmentIndication ON HANDS TWICE s: Hand eczema A DAY FOR 4 WEEKS, DECREASE 2 TIMES A DAY ON WEEKDAYS ONLY FOR 4 WEEKS, THEN STOP REPEAT CYCLE FOR FLARES atorvastatin Take 1 tablet 90 tablet 2 09/30/19 Dis continued (Lipitor) 20 mg (20 mg) by 1 22 (Re order) tabletIndications: mouth at Dyslipidemia bedtime. zinc sulfate Take 220 mg by 0 05/13/19 Di scontinued (ZINC-220 ORAL) mouth daily. 23 ( Therapy completed) anastrozole TAKE 1 TABLET 90 tablet 3 05/19/19 Disc ontinued (ARIMIDEX) 1 mg BY MOUTH EVERY 2 23 (Reorder) tabletIndications: DAY Infiltrating duct carcinoma, 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; Right> furosemide (LASIX) TAKE 1 TABLET 90 tablet 0 0 Discontinued 20 mg (20 MG) BY 2 22 tabletIndications: MOUTH DAILY Localized edema NEEDED FOR EDEMA. acetaminophen-code TAKE 1 TABLET 0 0 Discontinued ine (TYLENOL #3) BY MOUTH TWICE 2 22 300 mg-30 mg A DAY NEEDED tablet exemestane Take 1 tablet 30 tablet 6 11/21/19 Disco ntinued (AROMASIN) 25 mg (25 mg) by 2 22 (T herapy tabletIndications: mouth daily. completed) Infiltrating duct carcinoma, 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; Right>, Secondary malignant neoplasm of axillary lymph node clobetasol Apply topically 45 g 1 03/07/20 Dis continued (Temovate) 0.05% to affected 2 22 ointmentIndication area(s) twice s: Hand eczema daily. To hands for flares (discontinue when improved, avoid use on face, armpit, groin) furosemide (LASIX) TAKE 1 TABLET 30 tablet 0 0 Discontinued 20 mg (20 MG) BY 2 22 (Reorder) tabletIndications: MOUTH DAILY Localized edema NEEDED FOR EDEMA. atorvastatin Take 1 tablet 90 tablet 3 05/13/19 Dis continued (Lipitor) 40 mg (40 mg) by 2 ( erapy tabletIndications: mouth at c ompleted) Dyslipidemia bedtime. triamcinolone to affected 454 g 5 03/07/20 Disc ontinued (KENALOG) ointment areas for rash 2 22 0.1%Indications: , avoid face, Hand eczema armpit, groin anastrozole TAKE 1 TABLET BY MOUTH EVERY DAY 90 tablet 3 05/1905/19/19 Discontinued (ARIMIDEX) 1 mg Strength: 1 mg 3 23 tabletIndications: Infiltrating duct carcinoma, 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; Right> anastrozole Take 1 tablet 90 tablet 3 05/30/19 Disc ontinued (ARIMIDEX) 1 mg (1 mg) by mouth 3 23 (Reorder) tabletIndications: daily. Infiltrating duct carcinoma, 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; Right> Active Problems Patient Care Coordination Note Formatting of this note might be differe nt from the original. Pre-screened patient via telephone call on Monday August 26, 2019 for appointment on Wednesday August 28, 2019. Patient states no history of travel, exposure, or symptoms of COVID-19. No history of COVID-19 nasal swab testing Problem Noted Date Palpitations 09/29/2021 Last Assessment & Plan: Formatting of th is note might be different from the original. Discussed with patient her palpitations symptoms. We can restart Toprol at lower dose to see if symptoms improve. She can also take an extra dose at night if her palpitations occur again. Will start Top rol XL 25 mg daily and monitor response. She says her BP will fluctuate at times as well, and the Toprol will help stabilize it. Dyslipidemia 09/01/2021 Last Assessment & Plan: Formatting of th is note might be different from the original. Lipid panel today shows total chol 181, trigly 97, HDL 59, and LDL 103. Discussed results in detail with patient. Her levels appear to have improved from her last lipid panel with her PCP. Possible that is due to recent diet and/or increase i n atorvastatin. Levels look good today so will continue with atorvastatin 40 mg daily. Will plan to repeat lipid panel in 1 year Abdominal diastasis recti 07/17/2020 Melena 04/06/2020 Overview: Added automatically from request for duy waterman [id number] Esophagitis NOS 01/30/2020 Overview: Added automatically from request for duy conny [id number] Osteopenia 10/25/2019 Ulcer of esophagus 2019 Overview: Added automatically from request for duy conny [id number] Esophagitis, unspecified 2019 Overview: Added automatically from request for duy guevara [id number] Iron deficiency anemia 09/12/2019 Dysphagia 09/06/2019 Overview: Added automatically from request for duy conny [id number] Anemia 09/06/2019 Overview: Added automatically from request for duy guevara [id number] Non-compliance of drug therapy 04/16/2019 Surveillance following treatment with high risk medica tion 12/07/2018 Last Assessment & Plan: Formatting of th is note might be different from the original. Patient with previous treatment with her ceptin in 2019. Previous echos shows normal cardiac function. No evidence of decompensation at this time so will plan to check echo in 1 year for follow up and monitoring. History of heartburn 10/23/2018 Neuropathy 09/12/2018 Cancer associated pain 08/02/2018 Reflux esophagitis 07/12/2018 Hypomagnesemia 06/21/2018 Fatigue 06/21/2018 Localized edema 05/29/2018 Last Assessment & Plan: Formatting of th is note might be different from the original. Patient with mild ankle edema that is mo stly controlled with furosemide PRN. Previous echo shows normal cardiac function so edema does not to be secondary to cardiac etiology. Will continue with furosem isi PRN but all is symptoms worsen. Will plan to repeat echo at next visit in 1 year for follow up. Encounter for examination prior to antineoplastic chem otherapy 05/29/2018 Last Assessment & Plan: Formatting of th is note might be different from the original. -Patient does not have history of atrial fibrillation. -Patient is off of metoprolol for last 3 weeks and he does not have any symptoms. Her heart rate and blood pressure isn't controlled. -Patient was advised not to continue met oprolol at this point. 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 04/26/2018 Estrogen receptor positive status (ER+) 04/26/2018 Encounter for chemotherapy 04/26/2018 Infiltrating duct carcinoma of overlapping sites of ri ght female breast 04/18/2018 Cancer Staging: Clinical stage from 04/26: Stage IIA (cT2, cN1(f), cM0, G2, ER+, NC-, HER2+) - Signed by Abbe Pendleton MD on 04/27/2018 Pathologic stage from 09/28/2018: No Stag e Recommended (ypT0, pN0(sn), cM0, ER+, NC-, HER2+) - Signed by Abbe Pendleton MD on 10/23/2018 Bilateral arthritis of knees 10/20/2017 Hypothyroidism 09/25/2015 Osteoarthritis 09/25/2015 Disease type AND/OR category unknown 09/25/2015 Encounters Date Type Specialty Care Team Description 06/29/2022 Telemedicine Hematology Sapphire Kessler, Iron deficienc y PAPETERIE TABLE ASSEMBLER anemia, not oth erwise specified 06/29/2022 Orders Only Hematology Sapphire Kessler, PAPETERIE TABLE ASSEMBLER 06/27/2022 Travel 06/22/2022 Orders Only Hematology Sapphire Kessler, Iron deficienc y PAPETERIE TABLE ASSEMBLER anemia, not oth erwise specified (Prim kasey Dx) 05/30/2022 Orders Only Breast Medical Yosef Uribe NP Infiltrati ng duct Oncology carcinoma, NOS of overlapping les ion of breast <Female; Right> 05/19/2022 Orders Only Breast Medical Yosef Uribe NP Infiltrati ng duct Oncology carcinoma, NOS of overlapping les ion of breast <Female; Right> (Primary Dx) 05/19/2022 Refill Breast Surgical Héctor Gerber, Infiltrat ing duct duck bill operator carcinoma, NOS of overlapping les ion of breast <Female; Right> 05/13/2022 Telemedicine Hematology Sapphire Kessler, Iron deficienc y PAPETERIE TABLE ASSEMBLER anemia, not oth erwise specified (Prim kasey Dx) 05/13/2022 Hospital Encounter Lab Yosef Uribe NP Infilt rating duct carcinoma, NOS of overlapping les ion of breast <Female; Right> 05/13/2022 Follow-Up Breast Medical Yosef Uribe NP Infiltrati ng duct carcinoma, 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; Right>; Oncology Secondary malig nant neoplasm of axillary lymph node; Menopausal flus lupe; Pain in joint, not otherwise specified; Osteopenia; Loss of hair 05/13/2022 Hospital Encounter Lab Sapphire Kessler, Iron def iciency PAPETERIE TABLE ASSEMBLER anemia, not oth erwise specified 05/13/2022 Travel 05/13/2022 Orders Only Hematology Sapphire Kessler, Iron deficienc y PAPETERIE TABLE ASSEMBLER anemia, not oth erwise specified (Prim kasey Dx) 03/10/2022 Telephone Dermatology Fatemeh Lyn RN 03/09/2022 Telemedicine Hematology Sapphire Kessler, Iron deficienc y PAPETERIE TABLE ASSEMBLER anemia, not oth erwise specified (Prim kasey Dx) 03/07/2022 Follow-Up Dermatology Irena Rogers, Inflamed sebo rrheic keratosis (Primary Dx); Infiltrating francesca ct carcinoma, 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; Right>; Secondary malig nant neoplasm of axillary lymph node; Hand eczema; Skin cancer scr eening; Seborrheic jovita tosis; Hemangioma of s kin; Melanocytic nev us of trunk; Lentigo; Postmenopausal androgenetic alopecia; Madarosis of ey elid <Unspecified side; Unspecified eyelid> 03/07/2022 Travel 01/14/2022 Telemedicine Hematology Sapphire Kessler, Other iron def iciency PAPETERIE TABLE ASSEMBLER anemia 01/14/2022 Orders Only Hematology Sapphire Kessler, Iron deficienc y PAPETERIE TABLE ASSEMBLER anemia, not oth erwise specified (Prim kasey Dx) 01/12/2022 Orders Only Hematology Sapphire Kessler, PAPETERIE TABLE ASSEMBLER 01/11/2022 Hospital Encounter Lab Sapphire Kessler, Iron def iciency PAPETERIE TABLE ASSEMBLER anemia, not oth erwise specified 01/11/2022 Hospital Encounter Ophthalmic Plastic Lauren Tomas B ilateral epiphora due to excess lacrimation of lacrimal glands (Primary Dx); MD Donna ma ct carcinoma, 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; Right>; Secondary malig nant neoplasm of axillary lymph node; Menopausal flus lupe; Pain in joint, not otherwise specified; Osteopenia; Blepharitis <Un specified side; Unspecified eyelid> 01/11/2022 Travel 01/11/2022 Orders Only Hematology Sapphire Kessler, Iron deficienc y PAPETERIE TABLE ASSEMBLER anemia, not oth erwise specified (Prim kasey Dx) 12/15/2021 Infusion Infusion Services Sapphire Kessler, Iron defi ciency PAPETERIE TABLE ASSEMBLER anemia, not oth erwise specified (Prim kasey Dx) 12/15/2021 Travel 12/08/2021 Infusion Infusion Services Sapphire Kessler, Iron defi ciency PAPETERIE TABLE ASSEMBLER anemia, not oth erwise specified (Prim kasey Dx) 12/08/2021 Ancillary Radiology Yosef Uribe NP Infiltrating duct carcinoma, 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; Right>; Procedure Secondary malig nant neoplasm of axillary lymph node; Menopausal flus lupe; Pain in joint, not otherwise specified; Osteopenia; Weight gain 12/08/2021 Travel 11/30/2021 Orders Only Hematology Sapphire Kessler, PAPETERIE TABLE ASSEMBLER 11/24/2021 Telemedicine Hematology Sapphire Kessler, Other iron def iciency PAPETERIE TABLE ASSEMBLER anemia (Primary Dx) 11/24/2021 Ancillary Radiology Lauren Tomas, Cancer Procedure MD 11/24/2021 Orders Only Hematology Sapphire Kessler, Iron deficienc y PAPETERIE TABLE ASSEMBLER anemia, not oth erwise specified (Prim kasey Dx) 11/19/2021 Office Visit Breast Medical UribeYosef combs NP Infiltrati ng duct carcinoma, 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; Right> (Primary Dx); Oncology Secondary malig nant neoplasm of axillary lymph node; Menopausal flus lupe; Pain in joint, not otherwise specified; Osteopenia; Weight gain; Loss of hair 11/19/2021 Ancillary Radiology Yosef Uribe NP Infiltrating duct carcinoma, 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; Right>; Procedure Secondary malig nant neoplasm of axillary lymph node; Menopausal flus lupe; Pain in joint, not otherwise specified; Osteopenia; Weight gain 11/19/2021 Hospital Encounter Radiology Yosef Uribe NP Infilt rating duct carcinoma, 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; Right>; Secondary malig nant neoplasm of axillary lymph node; Menopausal flus lupe; Pain in joint, not otherwise specified; Osteopenia; Weight gain 11/19/2021 Hospital Encounter Lab Sapphire Kessler, Virgilio ir on deficiency PAPETERIE TABLE ASSEMBLER anemia 11/19/2021 Travel 09/29/2021 Follow-Up Cardiology Sergio Randle, Hypertension (Primary Dx); PA Dyslipidemia; Joce, Localized edema ; Sujey Vail NP Surveillance following treatment with high risk medication; Palpitations 09/29/2021 Hospital Encounter Lab Sergio Randle, Dyslipi demia PA 09/29/2021 Travel 09/01/2021 Orders Only Cardiology Ana Rosa Randlelorene, Dyslipidemia (Primary PA Dx) 08/27/2021 Refill Cardiology Sergio Randle, Localized adeline ma PA 08/20/2021 Telemedicine Hematology Sapphire Kessler, Other iron def iciency PAPETERIE TABLE ASSEMBLER anemia (Primary Dx) 08/20/2021 Orders Only Hematology Sapphire Kessler, PAPETERIE TABLE ASSEMBLER 08/20/2021 Travel 08/02/2021 Infusion Infusion Services Sapphire Kessler, Iron defi ciency PAPETERIE TABLE ASSEMBLER anemia, not oth erwise specified (Prim kasey Dx) 08/02/2021 Travel 07/29/2021 Anesthesia Event Endoscopy Romel Viera MD 07/29/2021 Surgery Endoscopy Barry Callaway DIAGNOSTIC UP PER MD Vicky GASTROINTESTINA L ENDOSCOPY 07/29/2021 Hospital Encounter Endoscopy Barry Callaway Anemia, not otherwise MMD Preston specified 07/29/2021 Travel 07/28/2021 POEM Appointments Anesthesiology Tamica Craven, PAPETERIE TABLE ASSEMBLER 07/28/2021 Anesthesia Event Anesthesiology Vanessa Torres RN 07/28/2021 Orders Only Hematology Sapphire Kessler NP 07/27/2021 Clinical Support Tamica Lerma, Suspicio n (Primary Dx) PAPETERIE TABLE ASSEMBLER Summer Granados MA 07/27/2021 Travel 07/19/2021 Infusion Infusion Services Sapphire Kessler, Iron defi ciency PAPETERIE TABLE ASSEMBLER anemia, not oth erwise specified (Prim kasey Dx) 07/19/2021 Travel 07/12/2021 Infusion Infusion Services Sapphire Kessler, Iron defi ciency PAPETERIE TABLE ASSEMBLER anemia, not oth erwise specified (Prim kasey Dx) 07/12/2021 Travel 07/07/2021 Telemedicine Hematology Sapphire Kessler, Other iron def iciency PAPETERIE TABLE ASSEMBLER anemia (Primary Dx) 07/07/2021 Orders Only Hematology Sapphire Kessler, Iron deficienc y PAPETERIE TABLE ASSEMBLER anemia, not oth erwise specified (Prim kasey Dx) 07/02/2021 Office Visit Dermatology Irena Rogers, Hand eczema ( Primary Dx); MD Donna ma ct carcinoma, 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; Right>; Secondary malig nant neoplasm of axillary lymph node; Skin cancer scr eening; Seborrheic jovita tosis; Hemangioma of s kin; Melanocytic nev us of trunk; Lentigo; Postmenopausal androgenetic alopecia 07/02/2021 Orders Only Hematology Checo SapphireRAIZA 07/02/2021 Travel after 06/30/2021 Surgical History Surgery Date Site/Laterality Comments HYSTERECTOMY 04/10/2007 - ROSAS/BSO excludin g 04/09/2008 cervix TONSILLECTOMY 04/10/1969 - 04/09/1970 BREAST CYST EXCISION 04/10/1967 - Right 04/09/1968 SALPINGOOPHORECTOMY 04/10/1987 - Left due to tubal 04/09/1988 LAPAROSCOPIC CHOLECYSTECOMY 04/10/1995 - 04/09/1996 KNEE SURGERY 04/10/2017 - Left 04/09/2018 BREAST BIOPSY 03/26/2018 Right BREAST BIOPSY 04/26/2018 Left LYMPH NODE BIOPSY 04/26/2018 Right Intra-mammary Lymph Node NC INSJ TUNNELED CTR VAD W/SUBQ 05/07/2018 Neck/Left Procedure: PORT-A-CATH PORT AGE 5 YR/> PLACEMENT; Surge on: Michoacano Seay MD; Location: [facility]; Service: SURG ON C - PORT Medical devices from this surgery are in the Medical Yi rosalino section. NC US VASC ACCESS SITS VSL 05/07/2018 Left Proce dure: US GUIDANCE PATENCY NDL ENTRY WITH EVAL OF P OTENTIAL ACCESS SITES, RE ALTIME US VISUALIZATION OF VASC NEEDLE ENTR Y; Surgeon: Michoacano Seay MD; Locat ion: [facility]; Service : SURG ONC - PORT Medical devices from this surgery are in the Medical Yi rosalino section. NC FLUORO CENTRAL VENOUS ACCESS 05/07/2018 Neck/Left Procedure: FLUORO DEV PLACEMENT GUIDANCE FOR YEVGENIY TRAL VENOUS ACCESS DE VICE PLACEMENT, REPLACEMENT, OR REMOVAL; Surgeon : Michoacano Seay MD; [facility]: [facility]; Service: SURG ON C - PORT Medical devices from this surgery are in the Medical Yi rosalino section. NC MASTECTOMY PARTIAL 09/28/2018 Breast/Bilateral Procedure : MAG SEED SEGMENTAL MASTEC SAMANTHA RIGHT X 2; LEFT X 1; Surgeon: Barb Kelsey MD; Location: [facility]; Service: BREAST NC INTRAOP SENTINEL LYMPH NODE 09/28/2018 Axilla/Bilateral Procedure: IOLM; ID W/DYE INJECTION Surgeon: Georgia Kelsey MD; Location: [facility]; Service: BREAST NC BX/EXC LYMPH NODE OPEN DEEP 09/28/2018 Axilla/Bilateral Procedure: SLNB; AXILLARY NODE Surgeon: Barb Kelsey MD; Location: [facility]; Service: BREAST NC ADJACENT TISSUE 09/28/2018 Breast/Bilateral Procedure: TRANSFER/REARGMT TRUNK 10 SQCM/< REARRANGEMENT OF ADJACENT TISSUE FOR REPAIR OF DEFECT OF TRUNK; Surgeon: Chacorta Mclaughlin MD; Locat ion: [facility]; Service : PLS - PLASTIC SURGER Y NC MASTOPEXY 09/28/2018 Breast/Bilateral Procedure: MAST OPEXY; Surgeon: Chacorta hirsch MD; Location: [facility]; Service: PLS - P LASTIC SURGERY NC BREAST RECONSTRUC W OTHR 09/28/2018 Breast/Bilateral Pro cedure: TECHNIQ RECONSTRUCTION O F BREAST WITH OTHE R TECHNIQUE; Surge on: Chacorta Mclaughlin MD; Location: [facility]; Service: PLS - P LASTIC SURGERY EGD multiple at [facility]; with dilations; last one 2017 COLONOSCOPY 04/10/2014 - at [facility]; normal e xam 04/09/2015 per pt report; f /up recommended in 1 0 years NC EGD TRANSORAL BIOPSY 10/16/2019 Esophagus/N/A Procedur e: UPPER SINGLE/MULTIPLE GASTROINTESTINAL ENDOSCOPY OF ESOPHAGUS, STOMA CH, AND DUODENUM WIT H BIOPSY; Surgeon: Benjamin Chairez MD; Location: [facility]; Servi ce: GASTROENTEROLOGY ; f/up 3 months NC COLONOSCOPY W/BIOPSY 10/16/2019 N/A Procedur e: FLEXIBLE SINGLE/MULTIPLE COLONOSCOPY PROX IMAL TO SPLENIC FLEXU RE WITH BIOPSY; Duy geon: Benjamin Chairez MD; Location: [facility] END[facility]; Servi ce: GASTROENTEROLOGY NC ESOPHAGOGASTRODUODENOSCOPY 04/15/2020 Esophagus/N/A Pr ocedure: DIAGNOSTIC TRANSORAL DIAGNOSTIC UPPER GASTR OINTESTINAL ENDOSCOPY; Surge on: Guy Carolina; Location: [facility] ENDOSCOPY; Servi ce: GASTROENTEROLOGY NC ESOPHAGOGASTRODUODENOSCOPY 07/29/2021 Esophagus/N/A Pr ocedure: DIAGNOSTIC TRANSORAL DIAGNOSTIC UPPER GASTR OINTESTINAL ENDOSCOPY; Surge on: Barry Callaway MD; Location: MAIN ENDOSCOPY; Servi ce: GASTROENTEROLOGY Medical History Medical History Date Comments Depressive disorder Irregular heart beat controlled with met oprolol; resolved Hypothyroidism Arthritis Anxiety Ectopic Breast cancer 03/2018 Gastroesophageal reflux disease Hypertension Per patient, she burch s not have HTN Diastasis recti of abdomen per pt report ; advised to have repair by outside MD Postoperative nausea and vomiting Benign polyp of colon 10/18/2019 hyperplastic polyp ; s/p polypectomy Hiatal hernia 10/18/2019 4 cm hiatal hernia n oted on EGD Ulcer of esophagus 10/18/2019 Diverticulosis of sigmoid colon 10/18/2019 multiple small-mouthed diverticulosis noted on colonoscopy Esophagitis, unspecified 10/18/2019 LA Grade C Obesity Personal history of chemotherapy History of radiation therapy Palpitations 09/29/2021 Family History Medical History Relation Name Comments Breast cancer Maternal Aunt Liver cancer Maternal Cousin 6 Colon polyps Mother Skin cancer Mother -Unknown cancer Other 5 Breast cancer Other 13 Breast cancer Other 14 Liver cancer Other 15 Ovarian cancer Neg Hx Relation Name Status Comments Brother 1 Alive Brother 2 Stanley (Age 50) Brother 3 (Age 51) Daughter Alive Father (Age 84) Granddaughter 1 Alive Granddaughter 2 Alive Maternal Aunt Alive Maternal Cousin 1 Alive Maternal Cousin 2 Alive Maternal Cousin 3 Alive Maternal Cousin 4 Alive Maternal Cousin 5 (Age 40) Maternal Cousin 6 Maternal Cousin 7 Alive Maternal Cousin 8 Alive Maternal Grandfather (Age 71) Maternal Grandmother (Age 74) Maternal Uncle 1 (Age 29) Maternal Uncle 2 (Age 70) Mother Alive Nephew 1 Alive Nephew 2 Alive Nephew 3 Alive Nephew 4 Alive Nephew 5 Alive Niece 1 Alive Niece 2 Alive Niece 3 Alive Niece 4 Alive Niece 5 Alive Other 1 Alive Other 2 Alive Other 3 Alive Other 4 Alive Other 5 Other 6 Alive Other 7 Alive Other 8 Alive Other 9 Alive Other 10 Alive Other 11 Alive Other 12 Alive Other 13 Other 14 (Age 75) Other 15 (Age 75) Other 16 Alive Other 17 Alive Other 18 Alive Paternal Aunt 1 Alive Paternal Aunt 2 Alive Paternal Cousin 1 Alive Paternal Cousin 2 Alive Paternal Cousin 3 Alive Paternal Cousin 4 Alive Paternal Cousin 5 Alive Paternal Cousin 6 Alive Paternal Cousin 7 Alive Paternal Cousin 8 Alive Paternal Cousin 9 Alive Paternal Cousin 10 Alive Paternal Cousin 11 Alive Paternal Cousin 12 Alive Paternal Grandfather (Age 70) Paternal Grandmother (Age 80) Paternal Uncle 1 Paternal Uncle 2 Paternal Uncle 3 Paternal Uncle 4 Paternal Uncle 5 Paternal Uncle 6 Alive Paternal Uncle 7 Alive Sister Alive Son Alive Social History Tobacco Use Types Packs/Day Years Used Date Smoking Tobacco: Former Cigarettes 0.3 5 Quit : 04/26/2016 Smokeless Tobacco: Never Comments: social smoking with friends Alcohol Use Standard Drinks/Week Comments Yes 0 (1 standard drink = 0.6 oz pure margar rosalva with solomon islander twice a alcohol) month Sex Assigned at Date Recorded Female 09/06/2019 10:37 AM CDT Job Start Date Occupation Industry Not on file Not on file Not on file COVID-19 Exposure Response Date Recorded In the last 10 days, have you been in contact with No / Unsu re 06/27/2022 10:50 AM CDT someone who was confirmed or suspected to have Coronavirus/COVID-19? Obstetrics History Para Term AB IAB SAB Ectopic Multiple Living Live Births 3 2 Date Outcome GA Total Labor/2nd/3rd Weight Sex Delivery Anes PTL [place] A 1 A5 Name Clin Labor Para Para Comments Menopause 56 surgical due to prolapsed u terus and bladder HRT 1 year; Estrace 1-2 years Menarche 13 Parity 31 Breast feed 9 months OCP 3 years Last Filed Vital Signs Vital Sign Reading Time Taken Comments Blood Pressure 135/77 05/13/2022 11:30 AM EXCELLENCE CONSULTANT Pulse 72 05/13/2022 11:30 AM EXCELLENCE CONSULTANT Temperature 36.5 C (97.7 F) 05/13/2022 11:30 AM EXCELLENCE CONSULTANT Respiratory Rate 18 05/13/2022 11:30 AM EXCELLENCE CONSULTANT Oxygen Saturation 99% 05/13/2022 11:30 AM EXCELLENCE CONSULTANT Inhaled Oxygen Concentration - - Weight 87.2 kg (192 lb 3.9 oz) 05/13/2022 11:30 AM EXCELLENCE CONSULTANT Height 153 cm (5' 0.24") 11/19/2021 12:37 PM CDT Body Mass Index 37.25 11/19/2021 12:37 PM CDT Plan of Treatment Date Type Specialty Care Team Description 09/08/2022 Follow-Up Dermatology Irena Rogers M D [address] [place], [place] [address] (Wo rk) 09/29/2022 Appointment Cardiology Sujey Hobson NP [address] [place], [place] [address] (Wo rk) 09/29/2022 Appointment Lab Sujey Hobson NP [address] [place], [place] [address] (Wo rk) 09/29/2022 Follow-Up Cardiology Sujey Hobson NP [address] [place], [place] [address] (Wo rk) 11/11/2022 Ancillary Procedure Radiology [facility] YosefRAIZA [address] [place], [place] [address] (Wo rk) 11/11/2022 Appointment Radiology [facility] CarmeloRAIZA marion [address] [place], [place] [address] (Wo rk) 11/11/2022 Follow-Up Breast Medical Oncology Uribe Carmelopiedad mckay NP [address] [place], [place] [address] (Wo rk) 11/17/2022 Consult Endocrinology Maurice Mitcehll MD [address] [place], [place] [address] (Wo rk) Health Maintenance Due Date Last Done Comments COVID-19 Vaccination (#1) 04/23/1951 Medical Devices Implanted Type Area Transcriptionist Device Shelf Model / Identifier Expiration Serial / Date Lot Ezio Little Isp 6fr - [id number] Port Left: BARD PERIPH ERAL 07/09/2019 [id number] / Implanted: Qty: 1 on 05/07/2018 by Michoacano Seay MD at [facility] Chest Wall VASCULAR / Explanted: 01/16/2020 (Quantity not on file) [id number] Description: LENGTH OF CATHETER= 27 cm Procedures Procedure Name Priority Date/Time Associated Comments Diagnosis MANUAL DIFFERENTIAL Routine 06/17/2022 11:55 Iron deficiency R esults for this AM EXCELLENCE CONSULTANT anemia, not procedure are i n otherwise specified the resu lts section. Results CBC Routine 06/17/2022 11:55 Iron deficiency Results for this AM EXCELLENCE CONSULTANT anemia, not procedure are i n otherwise specified the resu lts section. TRANSFERRIN Routine 06/17/2022 11:55 Iron deficiency Results for this AM EXCELLENCE CONSULTANT anemia, not procedure are i n otherwise specified the resu lts section. FERRITIN LVL Routine 06/17/2022 11:55 Iron deficiency Results for this AM EXCELLENCE CONSULTANT anemia, not procedure are i n otherwise specified the resu lts section. IRON LEVEL Routine 06/17/2022 11:55 Iron deficiency Results for this AM EXCELLENCE CONSULTANT anemia, not procedure are i n otherwise specified the resu lts section. COMPLETE BLOOD COUNT W/ Routine 06/17/2022 11:55 Iron deficien cy DIFFERENTIAL AM EXCELLENCE CONSULTANT anemia, not otherwise specified URINALYSIS WITH Routine 05/13/2022 1:00 Infiltrating duct Resu lts for this MICROSCOPIC IF INDICATED PM EXCELLENCE CONSULTANT carcinoma, NOS o f procedure are in overlapping lesion the resul ts of breast <Female; section. Right> URINE CULTURE Routine 05/13/2022 1:00 Infiltrating duct Result s for this PM EXCELLENCE CONSULTANT carcinoma, NOS of procedure are in overlapping lesion the resul ts of breast <Female; section. Right> MANUAL DIFFERENTIAL Routine 05/13/2022 10:59 Iron deficiency R esults for this AM EXCELLENCE CONSULTANT anemia, not procedure are i n otherwise specified the resu lts section. Results CBC Routine 05/13/2022 10:59 Iron deficiency Results for this AM EXCELLENCE CONSULTANT anemia, not procedure are i n otherwise specified the resu lts section. TRANSFERRIN Routine 05/13/2022 10:59 Iron deficiency Results for this AM EXCELLENCE CONSULTANT anemia, not procedure are i n otherwise specified the resu lts section. FERRITIN LVL Routine 05/13/2022 10:59 Iron deficiency Results for this AM EXCELLENCE CONSULTANT anemia, not procedure are i n otherwise specified the resu lts section. IRON LEVEL Routine 05/13/2022 10:59 Iron deficiency Results for this AM EXCELLENCE CONSULTANT anemia, not procedure are i n otherwise specified the resu lts section. COMPLETE BLOOD COUNT W/ Routine 05/13/2022 10:59 Iron deficien cy DIFFERENTIAL AM EXCELLENCE CONSULTANT anemia, not otherwise specified MANUAL DIFFERENTIAL Routine 03/07/2022 1:02 Other iron Resul ts for this PM EXCELLENCE CONSULTANT deficiency anemia procedure are in the results section. Results CBC Routine 03/07/2022 1:02 Other iron Results for this PM EXCELLENCE CONSULTANT deficiency anemia procedure are in the results section. TRANSFERRIN Routine 03/07/2022 1:02 Other iron Results for this PM EXCELLENCE CONSULTANT deficiency anemia procedure are in the results section. FERRITIN LVL Routine 03/07/2022 1:02 Other iron Results for this PM EXCELLENCE CONSULTANT deficiency anemia procedure are in the results section. IRON LEVEL Routine 03/07/2022 1:02 Other iron Results for this PM EXCELLENCE CONSULTANT deficiency anemia procedure are in the results section. COMPLETE BLOOD COUNT W/ Routine 03/07/2022 1:02 Other iron DIFFERENTIAL PM EXCELLENCE CONSULTANT deficiency anemia MANUAL DIFFERENTIAL Routine 01/11/2022 1:49 Iron deficiency Re sults for this PM CDT anemia, not procedure are i n otherwise specified the resu lts section. Results CBC Routine 01/11/2022 1:49 Iron deficiency Results f or this PM CDT anemia, not procedure are i n otherwise specified the resu lts section. TRANSFERRIN Routine 01/11/2022 1:49 Iron deficiency Results f or this PM CDT anemia, not procedure are i n otherwise specified the resu lts section. FERRITIN LVL Routine 01/11/2022 1:49 Iron deficiency Results f or this PM CDT anemia, not procedure are i n otherwise specified the resu lts section. IRON LEVEL Routine 01/11/2022 1:49 Iron deficiency Results f or this PM CDT anemia, not procedure are i n otherwise specified the resu lts section. COMPLETE BLOOD COUNT W/ Routine 01/11/2022 1:49 Iron deficienc y DIFFERENTIAL PM CDT anemia, not otherwise specified US HEAD NECK SOFT TISSUE Routine 12/08/2021 10:01 Infiltrating duct Results for this AM CDT carcinoma, NOS of procedure are in overlapping lesion the resul ts of breast <Female; section. 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 Results CBC Routine 11/19/2021 9:54 Other iron Results for this AM CDT deficiency anemia procedure are in the results section. TRANSFERRIN Routine 11/19/2021 9:54 Other iron Results for this AM CDT deficiency anemia procedure are in the results section. FERRITIN LVL Routine 11/19/2021 9:54 Other iron Results for this AM CDT deficiency anemia procedure are in the results section. IRON LEVEL Routine 11/19/2021 9:54 Other iron Results for this AM CDT deficiency anemia procedure are in the results section. COMPLETE BLOOD COUNT W/ Routine 11/19/2021 9:54 Other iron DIFFERENTIAL AM CDT deficiency anemia OSI CT CHEST Routine 10/08/2021 4:02 Cancer Results for this AM CDT procedure are i n the results section. LIPID PANEL Routine 09/29/2021 11:04 Dyslipidemia Results for this AM CDT procedure are i n the results section. MANUAL DIFFERENTIAL Routine 08/20/2021 11:06 Other iron Resu lts for this AM CDT deficiency anemia procedure are in the results section. Results CBC Routine 08/20/2021 11:06 Other iron Results for this AM CDT deficiency anemia procedure are in the results section. TRANSFERRIN Routine 08/20/2021 11:06 Other iron Results for this AM CDT deficiency anemia procedure are in the results section. FERRITIN LVL Routine 08/20/2021 11:06 Other iron Results for this AM CDT deficiency anemia procedure are in the results section. IRON LEVEL Routine 08/20/2021 11:06 Other iron Results for this AM CDT deficiency anemia procedure are in the results section. COMPLETE BLOOD COUNT W/ Routine 08/20/2021 11:06 Other iron DIFFERENTIAL AM CDT deficiency anemia PATHOLOGY BIOPSY Routine 07/29/2021 12:15 Anemia, not Results for this INTERPRETATION PM CDT otherwise specified proced ure are in the results section. DIAGNOSTIC UPPER 07/29/2021 12:03 Anemia, not GASTROINTESTINAL PM CDT otherwise specified ENDOSCOPY Case Notes 1x left vm 04/12/21 2x left vm x left vm 05/03/21 COVID-19 Routine 07/27/2021 11:15 AM Suspicion Results for this (SARS-COV-2) PCR CDT procedure a re in ASYMPTOMATIC the results section. MANUAL DIFFERENTIAL Routine 07/02/2021 12:27 PM Other iron R esults for this CDT deficiency anemia procedure are in the results section. Results CBC Routine 07/02/2021 12:27 PM Other iron Results for this CDT deficiency anemia procedure are in the results section. TRANSFERRIN Routine 07/02/2021 12:27 PM Other iron Results for this CDT deficiency anemia procedure are in the results section. FERRITIN LVL Routine 07/02/2021 12:27 PM Other iron Results for this CDT deficiency anemia procedure are in the results section. IRON LEVEL Routine 07/02/2021 12:27 PM Other iron Results for this CDT deficiency anemia procedure are in the results section. COMPLETE BLOOD COUNT Routine 07/02/2021 12:27 PM Other iron W/ DIFFERENTIAL CDT deficiency anemia after 06/30/2021 Results (ABNORMAL) .CBC (06/17/2022 11:55 AM EXCELLENCE CONSULTANT)Only the most recent of7 resultswithin the time period is included. athologist Signature WBC 6.9 4.0 - 11.0 [place] K/uL Comment: All components of the CBC perfo rmed at [facility], [address] [place] [address] 3 RBC 3.94 (L) 4.00 - 5.50 M/uL [place] Comment: All components of the CBC perfo rmed at [facility], [address] [place], [place] [address] Hgb 12.3 12.0 - 16.0 gm/dL [place] Comment: As part of CBC or as an individ ual orderable testing performed at [facility], [address] [place] [address], [place] [address] Hct 37.4 37.0 - 47.0 % [place] Comment: As part of CBC testing performe d at [facility], [address] [place] [address], [place] [address] MCV 95 82 - 98 fL [place] Comment: As part of CBC testing performe d at [facility], [address] [place] [address] MCH 31.2 (H) 27.0 - 31.0 pg [place] Comment: As part of CBC testing performe d at [facility], [address] [place] [address] MCHC 32.9 31.0 - 36.0 gm/dL [place] Comment: As part of CBC testing performe d at [facility], [address] [place] [address], [place] [address] RDW-SD 42.3 35.1 - 46.3 fL [place] Comment: As part of CBC testing performe d at [facility], [address] [place] [address] RDW-CV 12.0 12.0 - 15.5 % [place] Comment: As part of CBC testing performe d at [facility], [address] [place] [address] Platelet count 370 140 - 440 K/uL [facility] CIT Y Comment: As part of CBC or an individual orderable testing performed at [facility], [address] [place] [address] MPV 8.8 4.0 - 10.4 fL [place] Comment: As part of CBC testing performe d at [facility], [address] [place] [address] Specimen Anatomical Collection Method Collection Time Receive d Time (Source) Location / / Volume Laterality Blood 06/17/2022 11:55 06/17/2022 AM EXCELLENCE CONSULTANT 11:56 AM EXCELLENCE CONSULTANT Narrative [place] - 06/17/2022 12:03 PM EXCELLENCE CONSULTANT Please schedule at [facility] same day Sapphire Kessler NP LAB BLOOD ORDERABLES Performing Organization Address City/State/[place] [address] [place] [address] (ABNORMAL) Differential (06/17/2022 11:55 AM EXCELLENCE CONSULTANT)Only the most recent of7 resultswithin the time period is included. athologist Signature Neutrophil % 63.2 42.0 - 66.0 [place] % Comment: All components of the Different ial performed at [facility], [address] [place] [address] Lymphocyte % 26.9 24.0 - 44.0 % [place] Comment: As part of the Differential keyon ting performed at [facility], [address] [place] [address], [place] [address] Monocyte % 7.3 (H) 2.0 - 7.0 % [place] Comment: As part of the Differential keyon ting performed at [facility], [address] [place] [address] Eosinophil % 2.0 1.0 - 4.0 % [place] Comment: As part of the Differential keyon ting performed at [facility], [address] [place] [address], [place] [address] Basophil % 0.6 0.0 - 1.0 % [place] Comment: As part of the Differential keyon ting performed at [facility], [address] [place] [address] IGRE % 0.0 0.0 - 0.4 % [place] Comment: IGRE % count includes Metamyelocytes, My elocytes, and Promyelocytes. As part of the Differential testing perf ormed at [facility], [address] [place] [address], [place] [address] Neutrophil Abs 4.38 1.70 - 7.30 K/uL [facility] Comment: As part of the Differential keyon ting performed at [facility], [address] [place] [address] Lymphocyte Abs 1.87 1.00 - 4.80 K/uL [facility] Comment: As part of the Differential keyon ting performed at [facility], [address] [place] [address], [place] [address] Monocyte Abs 0.51 0.08 - 0.70 K/uL [facility] Comment: As part of the Differential keyon ting performed at [facility], [address] [place] [address] Eosinophil Abs 0.14 0.04 - 0.40 K/uL [facility] Comment: As part of the Differential keyon ting performed at [facility], [address] [place] [address] Basophil Abs 0.04 0.00 - 0.10 K/uL [facility] Comment: As part of the Differential keyon ting performed at [facility], [address] [place] [address] IG Abs 0.00 0.00 - 0.04 K/uL [place] Comment: As part of the Differential keyon ting performed at [facility], [address] [place] [address] Specimen Anatomical Collection Method Collection Time Receive d Time (Source) Location / / Volume Laterality Blood 06/17/2022 11:55 06/17/2022 AM EXCELLENCE CONSULTANT 11:56 AM EXCELLENCE CONSULTANT Narrative [place] - 06/17/2022 12:03 PM EXCELLENCE CONSULTANT Please schedule at [facility] same day Sapphire Kessler NP LAB BLOOD ORDERABLES Performing Organization Address City/State/ZIP Code Phon e Number [address] Transferrin with TIBC (06/17/2022 11:55 AM EXCELLENCE CONSULTANT)Only the most recent of7 results within the time period is included. athologist Signature Transferrin 223 200 - 360 [place] mg/dL Comment: Performed at [facility], [address] [place] [address] TIBC 312 250 - 450 mcg/dL [place] Comment: Performed at [facility], [address] [place] [address] Specimen Anatomical Collection Method Collection Time Receive d Time (Source) Location / / Volume Laterality Blood 06/17/2022 11:55 06/17/2022 AM EXCELLENCE CONSULTANT 11:56 AM EXCELLENCE CONSULTANT Narrative [place] - 06/17/2022 1:20 PM EXCELLENCE CONSULTANT Please schedule at [facility] same day Sapphire Kessler NP LAB BLOOD ORDERABLES Performing Organization Address City/State/ZIP Code Phon e Number [place], [place] [address] [place] [address] Iron Level (06/17/2022 11:55 AM EXCELLENCE CONSULTANT)Only the most recent of7 resultswithin the time period is included. P athologist Signature Iron 78 37 - 145 [place] mcg/dL Comment: Testing performed at [facility], [address] [place] [address] Specimen Anatomical Collection Method Collection Time Receive d Time (Source) Location / / Volume Laterality Blood 06/17/2022 11:55 06/17/2022 AM EXCELLENCE CONSULTANT 11:56 AM EXCELLENCE CONSULTANT Narrative [place] - 06/17/2022 1:20 PM EXCELLENCE CONSULTANT Please schedule at [facility] same day Sapphire Kessler NP LAB BLOOD ORDERABLES Performing Organization Address City/[facility]/ZIP Code Phon e Number [place], [place] [id number] [place] [address] Ferritin Level (06/17/2022 11:55 AM EXCELLENCE CONSULTANT)Only the most recent of7 resultswithin the time period is included. athologist Signature Ferritin Lvl 44 13 - 150 [place] ng/mL Comment: Testing performed at [facility], [address] [place] [address] Specimen Anatomical Collection Method Collection Time Receive d Time (Source) Location / / Volume Laterality Blood 06/17/2022 11:55 06/17/2022 AM EXCELLENCE CONSULTANT 11:56 AM EXCELLENCE CONSULTANT Narrative [place] - 06/17/2022 1:23 PM EXCELLENCE CONSULTANT Please schedule at [facility] same day Sapphire Kessler NP LAB BLOOD ORDERABLES Performing Organization Address City/State/ZIP Code Phon e Number [place], [place] [id number] [place] [address] (ABNORMAL) Urinalysis w/Microscopic if Indicated (05/13/2022 1:00 PM EXCELLENCE CONSULTANT) [facility] gist Method Time Signature UA Color Colorless (A) Straw-Yel [facility] UA Appear Clear Clear [facility] UA Glucose NEG NEG mg/dL [facility] UA Bili NEG NEG [facility] UA Ketones NEG NEG mg/dL [facility] UA Spec Grav 1.006 1.003 - IA MD 1.035 [facility] UA Blood NEG NEG [facility] UA pH 6.0 5.0 - 9.0 [facility] UA Protein NEG NEG mg/dL [facility] UA Urobilinogen NEG NEG [facility] UA Nitrite NEG NEG [facility] UA Leuk Est NEG NEG [facility] UA Comment See Comment [facility] Comment: No microscopic exam performed, physiochemical findings are negative Specimen Anatomical Collection Method Collection Time Receive d Time (Source) Location / / Volume Laterality Urine 05/13/2022 1:00 PM 3 1:28 EXCELLENCE CONSULTANT PM EXCELLENCE CONSULTANT Yosef Uribe [employer] URINE ORDERABLES Performing Organization Address City/[facility] Phon e Number [facility] Unless otherwise noted, [address] all lab tests performed by: Division of Pathology and Laboratory Medicine Violeta5 Fanny Pina (ABNORMAL) Culture, Urine (05/13/2022 1:00 PM EXCELLENCE CONSULTANT) Component Value Ref Test Analysis Performed At [facility] Range Method Time Signature Final Report <10,000 cfu/ml Normal site julissa present. IA Generally of low significance. ANGEL Correlate with clinical data and culture history. [facility] Path Review - The results have been review ed and electronically signed by Pathologist: IA Urine GAURAV DICKEY MD #[id number] A KAROLINE (A) [facility] Specimen Anatomical Collection Method Collection Time Receive d Time (Source) Location / / Volume Laterality Urine, Clean 05/13/2022 1:00 PM 3 2:57 Catch EXCELLENCE CONSULTANT PM EXCELLENCE CONSULTANT Simonahi Uribe [employer]SEM[employer]ER MICROBIOLOGY - GENERAL ORDER GRUPO Performing Organization Address City/[facility]/ZIP [facility] Phon e Number [facility] Unless otherwise noted, [address] all lab tests performed by: Division of Pathology and Laboratory Medicine [facility] US Head Neck Soft Tissue (12/08/2021 10:01 AM CDT) Anatomical Region Laterality Modality Head, Neck Ultrasound Specimen (Source) Anatomical Collection Method Collection Time Re ceived Time Location / / Volume Laterality 12/08/2021 1:12 PM CDT Impressions 12/08/2021 1:17 PM CDT No mass or adenopathy at the site of pal pable fullness. 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 Comparison: None. Technique: Real-time ultrasound examinat ion of the neck soft tissues was performed. The patient demonstrated the palpable finding in the left supraclavicular region. FINDINGS: Right Lateral Neck: No adenopathy. Left Lateral Neck: No adenopathy. The pa tient demonstrated the site of palpable fullness at the left supraclavicular fossa. There is no corresponding mass or adenopathy. Submental to Cricoid: No adenopathy. Procedure Note Shy Key MD - 12/08/2021Formatting o f this note might be different from the original. 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 Comparison: None. Technique: Real-time ultrasound examinat ion of the neck soft tissues was performed. The patient demonstrated the palpable finding in the left supraclavicular region. FINDINGS: Right Lateral Neck: No adenopathy. Left Lateral Neck: No adenopathy. The pa tient demonstrated the site of palpable fullness at the left supraclavicular fossa. There is no corresponding mass or adenopathy. Submental to Cricoid: No adenopathy. IMPRESSION: No mass or adenopathy at the site of pal pable fullness. Simonahi Uribe PAPETERIE TABLE ASSEMBLER IMG US ORDERABLES NM Bone Mineral Density Both Hips and Spine (11/19/2021 12:52 PM CDT) Anatomical Region Laterality Modality Spine Nuclear Medicine Specimen (Source) Anatomical Collection Method Collection Time Re ceived Time Location / / Volume Laterality 11/19/2021 1:00 PM CDT Impressions 11/19/2021 1:09 PM CDT Osteopenia based on measurements at bilateral total hips and bilateral femoral necks. Isolated statistically significant incre ase in bone mineral density within the lumbar spine could be related to progressive degenerative changes I personally reviewed these image(s) lucero paniagua with the resident's/fellow's interpretations, certify that if a procedure was performed I was physically present, and agree with the final report. Narrative 11/19/2021 1:09 PM CDT FULL RESULT: Examination: Bone Mineral Density (DXA), 11/19/2021 Clinical History: 71-year-old postmenopa usal female with breast carcinoma. Indication: Assessment of bone mineral d ensity. Comparison: Bone mineral density study d ated 09/30/2020. Technique: Bone mineral density was obta ined using Hologic dual-energy X-ray absorptiometry. L4 was again excluded from the analysis. Findings: The findings are provided in t he below table(s). Bone Density: Region Exam Date BMD T- Z- g/cm2 Score Score AP Spine (L1, L2, L3) 11/19/2021 0. 904 -1.0 1.1 Femoral Neck (Left) 11/19/2021 0. 637 -1.9 -0.1 Total Hip (Left) 11/19/2021 0. 745 -1.6 -0.1 Femoral Neck (Right) 11/19/2021 0. 640 -1.9 0.0 Total Hip (Right) 11/19/2021 0. 812 -1.1 0.5 For postmenopausal women and men age 50 and over, the World Health Organization criteria for BMD interpreta tion classify patients as: Normal (T-score at or above -1.0), Osteopenia ( T-score between -1.0 and -2.5), or Osteoporosis (T-score at or be low -2.5). Previous Exams: Region Exam Age BMD T-score B MD Change vs Date g/cm2 Baseline Previous AP Spine (L1-L3) 11/19/2021 71 0.904 -1.0 0.2% 6.4%* 09/30/2020 69 0.849 -1.5 -5.8%* -14.5%* 12/18/2018 68 0.993 -0.2 10.2%*! 10.2%* 12/18/2018 68 0.902 -1.1 Total Hip(Left) 11/19/2021 71 0.745 -1.6 6.1%* -0.1% 09/30/2020 69 0.745 -1.6 6.2%* 6.2%* 12/18/2018 68 0.701 -2.0 Femoral Neck(Left) 11/19/2021 71 0.637 -1.9 5.5% 7.6% 09/30/2020 69 0.592 -2.3 -2.0% -2.0% 12/18/2018 68 0.604 -2.2 Total Hip(Right) 11/19/2021 71 0.812 -1.1 5.2%* -0.2% 09/30/2020 69 0.813 -1.1 5.4%* 5.4%* 12/18/2018 68 0.771 -1.4 Femoral Neck(Right) 11/19/2021 71 0.640 -1.9 -1.9% -1.1% 09/30/2020 69 0.648 -1.8 -0.8% -0.8% 12/18/2018 68 0.653 -1.8 *Denotes significance at 95% confidence level, site specific LSC for AP Spine = 0.029 g/cm2, site specific LSC for Tot al Hip = 0.033 g/cm2, site specific LSC for Femoral Neck = 0.045 g/cm2, LSC for 1/3 Forearm = 0.023 g/cm2 Procedure Note Neftali Key MD - 11/19/2021Fo rmatting of this note might be different from the original. FULL RESULT: Examination: Bone Mineral Density (DXA), 11/19/2021 Clinical History: 71-year-old postmenopa usal female with breast carcinoma. Indication: Assessment of bone mineral d ensity. Comparison: Bone mineral density study d ated 09/30/2020. Technique: Bone mineral density was obta ined using Hologic dual-energy X-ray absorptiometry. L4 was again excluded from the analysis. Findings: The findings are provided in t he below table(s). Bone Density: Region Exam Date BMD T- Z- g/cm2 Score Score AP Spine (L1, L2, L3) 11/19/2021 0.904 -1.0 1.1 Femoral Neck (Left) 11/19/2021 0.637 -1.9 -0.1 Total Hip (Left) 11/19/2021 0.745 -1.6 -0.1 Femoral Neck (Right) 11/19/2021 0.640 -1.9 0.0 Total Hip (Right) 11/19/2021 0.812 -1.1 0.5 For postmenopausal women and men age 50 and over, the World Health Organization criteria for BMD interpreta tion classify patients as: Normal (T-score at or above -1.0), Osteopenia ( T-score between -1.0 and -2.5), or Osteoporosis (T-score at or be low -2.5). Previous Exams: Region Exam Age BMD T-score BMD Change v s Date g/cm2 Baseline Previous AP Spine (L1-L3) 11/19/2021 71 0.904 -1.0 0.2% 6.4%* 09/30/2020 69 0.849 -1.5 -5.8%* -14.5%* 12/18/2018 68 0.993 -0.2 10.2%*! 10.2% * 12/18/2018 68 0.902 -1.1 Total Hip(Left) 11/19/2021 71 0.745 -1.6 6.1%* -0.1% 09/30/2020 69 0.745 -1.6 6.2%* 6.2%* 12/18/2018 68 0.701 -2.0 Femoral Neck(Left) 11/19/2021 71 0.637 -1.9 5.5% 7.6% 09/30/2020 69 0.592 -2.3 -2.0% -2.0% 12/18/2018 68 0.604 -2.2 Total Hip(Right) 11/19/2021 71 0.812 -1.1 5.2%* -0.2% 09/30/2020 69 0.813 -1.1 5.4%* 5.4%* 12/18/2018 68 0.771 -1.4 Femoral Neck(Right) 11/19/2021 71 0.640 -1.9 -1.9% -1.1% 09/30/2020 69 0.648 -1.8 -0.8% -0.8% 12/18/2018 68 0.653 -1.8 *Denotes significance at 95% confidence level, site specific LSC for AP Spine = 0.029 g/cm2, site specific LSC for Tot al Hip = 0.033 g/cm2, site specific LSC for Femoral Neck = 0.045 g/cm2, LSC for 1/3 Forearm = 0.023 g/cm2 IMPRESSION: Osteopenia based on measurements at bila teral total hips and bilateral femoral necks. Isolated statistically significant incre ase in bone mineral density within the lumbar spine could be related to progressive degenerative changes I personally reviewed these image(s) lucero paniagua with the resident's/fellow's interpretations, certify that if a procedure was performed I was physically present, and agree with the final report. Yosef Uribe NP IMG DXA ORDERABLES Mammography Digital Diagnostic Bilateral with Don (11/19/2021 12:25 PM CDT) Anatomical Region Laterality Modality Breast Bilateral Mammography Specimen (Source) Anatomical Collection Method Collection Time Re ceived Time Location / / Volume Laterality 11/19/2021 4:49 PM CDT Impressions 11/19/2021 4:49 PM CDT There is no mammographic evidence of malignancy. Follow-up mammogram in 1 year is recomme nded. BI-RADS Category 2: Benign Finding(s) Narrative 11/19/2021 4:49 PM CDT CLINICAL INDICATION: Patient is a 71 year old female and is s een for history of breast cancer MAMMO DIGITAL DIAGNOSTIC BILATERAL W SIMONE O Digital Mammogram evaluated with Compute r Aided Detection (CAD). COMPARISON: The present examination has been compare d to prior imaging studies performed at [facility] [place] n 09/30/2020, and at [facility] [place] on 09/17/2018, 09/27, 09/28/2018, 10/22/2018, 11/08/2018, 10/25/2019 and 05/28/2021. FINDINGS: There are scattered areas of fibroglandu lar density. 1: There are stable post surgical scar s with associated surgical clips in both breasts. 2: There is a stable stereotactic clip in the right breast upper hemisphere at 12 o'clock. 3: There are benign appearing and fat necrosis calcifications in both breasts. Right breast magnification images of the previously described 0.4 cm calcifications at 11:00 5 cm from the ni pple show these calcifications are dystrophic in morphology and consistent with benign appearing fat necrosis. Tomosynthesis performed in CC and MLO pr ojections. Procedure Note Shannen Holman MD - 11/19/2021F ormatting of this note might be different from the original. CLINICAL INDICATION: Patient is a 71 year old female and is s een for history of breast cancer MAMMO DIGITAL DIAGNOSTIC BILATERAL W SIMONE O Digital Mammogram evaluated with Compute r Aided Detection (CAD). COMPARISON: The present examination has been compare d to prior imaging studies performed at [facility] [facility] n 09/30/2020, and at [facility] on 09/17/2018, 09/27, 09/28/2018, 10/22/2018, 11/08/2018, 10/25/2019 and 05/28/2021. FINDINGS: There are scattered areas of fibroglandu lar density. 1: There are stable post surgical scars with associated surgical clips in both breasts. 2: There is a stable stereotactic clip i n the right breast upper hemisphere at 12 o'clock. 3: There are benign appearing and fat ne crosis calcifications in both breasts. Right breast magnification images of the previously described 0.4 cm calcifications at 11:00 5 cm from the ni pple show these calcifications are dystrophic in morphology and consistent with benign appearing fat necrosis. Tomosynthesis performed in CC and MLO pr ojections. IMPRESSION: There is no mammographic evidence of mal ignancy. Follow-up mammogram in 1 year is recomme nded. BI-RADS Category 2: Benign Finding(s) Yosef Uribe NP [facility] MAMMOGRAPHY ORDERABLES OSI CT Chest (10/08/2021 4:02 AM CDT) Specimen (Source) Anatomical Location Collection Method / Collectio n Time Received Time / Laterality Volume Narrative Systemgenerated, Documentation - 022 4:02 AM CDT Study acquired at another institution. For comparison only. No [facility] originated interpretation requested or a vailable. Lauren Tomas MD [facility] OUTSIDE IMAGE ORDERABLES (ABNORMAL) Lipid panel (09/29/2021 11:04 AM CDT) P athologist Signature Chol 181 <=199 mg/dL [facility] Comment: ATP III Classification of Total Choleste rol Primary Target of Therapy (in mg/dL): <200 Desirable 200-239 Borderline high >=240 High Trig 97 <=149 mg/dL [facility] Comment: ATP III Classification of Serum Triglyce rides Primary Target of Therapy (in mg/dL): <150 Normal 150-199 Borderline high 200-499 High >=500 Very high Non-fasting triglycerides >200 mg/dL may be followed up with a fasting Lipid Panel. Calculated LDL-C may be falsely decreased when non-fasting triglycerides >200 mg/dL. HDL 59 >=40 mg/dL [facility] LDL 103 (H) <=100 mg/dL [facility] Comment: ATP III Classification of LDL Cholestero l Primary Target of Therapy (in mg/dL): <100 Optimal 100-129 Near optimal/above optimal 130-159 Borderline high 160-189 High >=190 Very high VLDL 19 mg/dL [facility] Specimen Anatomical Collection Method Collection Time Receive d Time (Source) Location / / Volume Laterality Blood 09/29/2021 11:04 09/29/2021 AM CDT 11:20 AM CDT Narrative [facility] - 09/29 11:52 AM CDT Coordinate with cardio office visit Sergio GARRISON LAB BLOOD ORDERABLES Performing Organization Address City/State/ZIP Code Phon e Number [facility] Unless otherwise noted, [place] [address] CENTER all lab tests performed by: Division of Pathology and Laboratory Medicine [id number] Fanny Pina Pathology Biopsy Interpretation (07/29/2021 12:15 PM CDT) Component Value Ref Test Analysis Performed Pathologis t Range Method Time At Signature Submitted Anemia, not 08/02/2021 [facility] Clinical otherwise 10:50 AM History specified [D64.9] CDT Diagnosis A: Duodenum, biopsy: 08/02/2021 [facility] Electronically Duodenal mucosa, no diagnostic abnormality. 10:50 AM signed by Craig Bolanos MD B: Stomach, antrum, biopsy: on 08/02/2021 at Antral mucosa with mild inactive chronic gastritis. 10:49 AM No Helicobacter organisms (H&E stain) or intestinal metaplas ia. Gross A: 08/02/2021 [facility] Description Duodenum, duodenum, h/o dysp hagia, anemia: Multiple pham-brown fragments of soft tissue measuring 1.0 x 0.3 x 0.1 cm in aggregate, entirely submitted in A1. GM 10:50 AM CDT B: Stomach, antrum: Four pham-ye llow fragments of soft tissue ranging from 0.2 to 0.4 cm, entirely submitted in C1. Disclaimer "Some tests 08/02/2021 [facility] reported here may 10:50 AM have been CDT developed and performance characteristics determined by [facility] Pathology and Laboratory Medicine. These tests have not been specifically cleared or approved by the U.S. Food and Drug Administration. If applicable, controls were reviewed and showed appropriate reactivity." Specimen Anatomical Collection Method Collection Time Receive d Time (Source) Location / / Volume Laterality Tissue 07/29/2021 12:15 07/29/2021 1:42 (Duodenum) PM CDT PM CDT Tissue (Stomach) 07/29/2021 12:17 022 1:42 PM CDT PM CDT Barry Callaway MD LAB PATHOLOGY ORDERABLES Performing Organization Address City/State/ZIP Code Phon e Number [facility] [place] [place] [id number] Fanny Pina MD COVID-19 (DANIEL-CoV-2) PCR Asymptomatic (07/27/2021 11:15 AM CDT) Component Value Ref Range Test Analysis Performed Pathologis t Method Time At Signature COVID19 SARS Pre-Out of OR DAGO TIRADO Indication Procedure [facility]NER COVID19 SARS Not Detected Not DAGO TIRADO Result Detected [facility] COVID19 SARS SARS-CoV-2 NOT Detected. DAGO TIRADO Interpretation [place] Reference Range: Not Detected [facility] Methodology: The Dejesus Real Time SARS-CoV-2 assay is a qualitative real-time reverse molecular biology director polymerase chain reaction (bobbin fixer-PCR) test to detect RNA from SARS-CoV-2 in nasal, nasopharyngeal and oropharyngeal swabs from patients with signs and symptoms of infection who ar e suspected of COVID-19 by their health care provider. The Dejesus RealTime SARS-CoV-2 performed on the [id number] System is a dual target assay with primers and probes for the RdRp and N genes. Results must be interpreted within the context of all relevant clinical and laboratory findings, and epidemiological risk factors. Positive results are indicative of the presence of SARS-CoV-2 RNA; clinical correlation with patient history and other diagnostic information is ne cessary to determine patient infection status. Positive results do not rule out bacterial infection or co-infection with other viruses. Negative results do not preclude SARS- CoV-2 infection and should not be used as the sole basis for patient management decisions. The Dejesus RealTime SARS-CoV -2 assay is for in vitro diagnostic use under FDA Emergency Use Authorization only. Testing is limited to laboratories certified under the Clinical Laboratory Improvement Tori ndments of 1988 (CLIA), 42U.S.C. 263a, to perform high complexity tests. The T est was performed by the CLIA-certified, high- complexity Molecular Diagnostics Laboratory (MDL) at [facility] under the Food and Drug Administration (FDA) s Emergency Use Authorization. Factsheet for patients: https://www.[facility].org/AbbottFac tSheetPatients Factsheet for healthcare pro viders: https://www.[facility].org/AbbottFactSheetHCP Test performed by: [facility] Molecular Diagnostic Lab [address] [place] [address] Specimen (Source) Anatomical Collection Method Collection Time Re ceived Time Location / / Volume Laterality Nasopharyngeal Swab 07/27/2021 11:15 07/09 AM CDT 1:13 PM CDT Thai Fountain MD MICROBIOLOGY - GENERAL ORDER GRUPO Performing Organization Address City/State/ZIP Code Phon e Number [facility] Unless otherwise noted, [place] [address] CENTER all lab tests performed by: Division of Pathology and Laboratory Medicine Josette Lawscomearle Pina after 06/30/2021 Insurance Payer Benefit Plan Subscriber ID Effective Phone Address Typ e / Group Dates MEDICARE MEDICARE PART [id number] 2015-Pres [phone] [facility] Medicare A AND B ent [id number] [employer] [address] [facility] [place] [id number] [employer] [employer]-SECONDAR [id number] 2018-Pres [address] [employer] ONLY ent [id number] [place] [address] Advance Directives Code Status Date Activated Date Inactivated Comments Full Code 09/28/2018 4:48 PM 09/29/2018 1:04 PM Care Teams Advanced Manager Relationship Specialty Start Date End Date Merlin Serrato PCP - External Follow Internal Medicine 8 MD Sukumar Ayala Lisa A., PAPETERIE TABLE ASSEMBLER PCP - General Breast Medical 04/23/[address] [place] [address] [place] [address] Sujey Hobson, Nurse Practitioner Cardiology 11/27/19 PAPETERIE TABLE [employer]SEMBLER [address] [place] [id number]
--- OUTSIDE RECORDS SUMMARY | 2022-06-30 11:39 | XMS REPORT | Continuity of Care Document ---
:1950 Author Organization [facility] t Address [address] [facility] [address] [place] [id number] Care Team Providers Name Role Phone [phone] Primary Care Physician Unavailable SYSTEM, PROVIDER NOT IN Attending Clinician Unavailable HOLA MEYER Attending Clinician Unavailable Sapphire Kessler NP Attending Clinician SAPPHIRE KESSLER Attending Clinician Unavailable DANE URIBE Attending Clinician Unavailable Dane Uribe NP Attending Clinician Héctor Gerber RN Attending Clinician Unavailable Fatemeh Lyn RN Attending Clinician Joseph Soto MD Attending Clinician JOSEPH SOTO Attending Clinician Unavailable LAUREN TOMAS Attending Clinician Unavailable Lauren Tomas MD Attending Clinician GERARDO POWELL Attending Clinician Unavailable Gerardo Corley Attending Clinician Sujey Hobson NP Attending Clinician Jd Garcia MD Attending Clinician Unavailable JD GARCIA Attending Clinician Unavailable Romel Viera MD Attending Clinician Tamica Potter NP Attending Clinician Vanessa Torres RN Attending Clinician Unavailable TAMICA POTTER Attending Clinician Unavailable Summer Granados MA Attending Clinician Unavailable AURELIA SMITH Attending Clinician Unavailable YULY ARRIAZA Attending Clinician Unavailable BRIAN COLE Attending Clinician Unavailable KI MENDEZ Attending Clinician Unavailable KANDY DE LA GARZA Attending Clinician Unavailable JILLIAN FIGUEROA Attending Clinician Unavailable NATALI LARA Attending Clinician Unavailable KERON RUIZ Attending Clinician Unavailable NO OCHOA Attending Clinician Unavailable JD GARCIA Admitting Clinician Unavailable NATALI LARA Admitting Clinician Unavailable Payers Payer Name Policy Type Policy Number Effective Date Expiration Date Genna hall MEDICARE PART A [id number] 2015 AND B 00:00:00 Problems Condition Condition Condition Status Onset Resolution Last Treating Co mments Source Name Details Category Date Date Treatment Clinician Date Palpitatio Palpitatio Disease Active Last U vu ns ns 6-22 Assessmen ity of 00:00: t & Plan: Alberto brennan of this Ovi note n might be Cancer different Center from the original. Discussed with patient her palpitati ons symptoms. We can restart Toprol at lower dose to see if symptoms improve. She can also take an extra dose at night if her palpitati ons occur again. Will start Toprol XL 25 mg daily and monitor response. She says her BP will fluctuate at times as well, and the Toprol will help stabilize it. Dyslipidem Dyslipidem Disease Active Last U vu ia ia 5-25 Assessmen ity of 00:00: t & Plan: Alberto brennan of this Andmelissao note n might be Cancer different Center from the original. Lipid panel today shows total chol 181, trigly 97, HDL 59, and LDL 103. Discussed results in detail with patient. Her levels appear to have improved from her last lipid panel with her PCP. Possible that is due to recent diet and/or increase in atorvasta tin. Levels look good today so will continue with atorvasta tin 40 mg daily. Will plan to repeat lipid panel in 1 year Abdominal Abdominal Disease Active Uni vers diastasis diastasis 4-09 ity of recti recti 00:00: [place] [facility] Melena Melena Disease Active 2019-04 Overview: Univer s 2-28 Formattin ity of 00:00: g of this 00 note MD might be [facility] different n from the Cancer original. Center Added automatic ally from request for surgery Esophagiti Esophagiti Disease Active 2019-04 Overview : Univers s NOS s NOS 0-22 Formattin ity of 00:00: g of this 00 note MD might be [facility] different n from the Cancer original. Center Added automatic ally from request for surgery [id number] Osteopenia Osteopenia Disease Active U nivers 7-17 ity of 00:00: [place] 00 MD [facility] Ulcer of Ulcer of Disease Active Overview: Un donell esophagus esophagus 7-13 Formattin i ty of 00:00: g of this 00 note might be [facility] different n from the Cancer original. Center Added automatic ally from request for surgery Esophagiti Esophagiti Disease Active Overview : Univers s, s, 7-13 Formattin ity of unspecifie unspecifie 00:00: g of this [place] d d 00 note might be [facility] different n from the Cancer original. Center Added automatic ally from request for surgery [id number] Iron Iron Disease Active Univers deficiency deficiency 6-04 it y of anemia anemia 00:00: [place] 00 MD [facility] Dysphagia Dysphagia Disease Active Overview: Univers 5-29 Formattin ity of 00:00: g of this 00 note might be [facility] different n from the Cancer original. Center Added automatic ally from request for surgery [id number] Anemia Anemia Disease Active Overview: Univer s 5-29 Formattin ity of 00:00: g of this [place] 00 note might be [facility] different n from the Cancer original. Center Added automatic ally from request for surgery [id number] Non-compli Non-compli Disease Active U nivers ance of ance of 07 ity of drug drug 00:00: [place] therapy therapy 00 MD [facility] Surveillan Surveillan Disease Active Last U nivers ce ce 8-30 Assessmen ity of following following 00:00: [place] & Plan[place] treatment treatment 00 Formattin M D with high with high g of this A nderso risk risk note n medication medication might be Cancer different Center from the original. Patient with previous treatment with herceptin in 2020. Previous echos shows normal cardiac function. No evidence of decompens ation at this time so will plan to check echo in 1 year for follow up and monitorin g. History of History of Disease Active U nivers heartburn heartburn 7-16 ity of 00:00: 00 MD [facility] Neuropathy Neuropathy Disease Active U nivers 6-05 ity of 00:00: MD [facility] Cancer Cancer Disease Active Univers associated associated 4-25 it y of pain pain 00:00: MD Ovi [facility]bert [facility] Reflux Reflux Disease Active Univers esophagiti esophagiti 4-04 it y of s s 00:00: MD [facility] Notus Hypomagnes Hypomagnes Disease Active U nivers emia emia 3-14 ity of 00:00: MD Ovi herbert [facility] Fatigue Fatigue Disease Active Univers 3-14 ity of 00:00: 00 MD [facility] Localized Localized Disease Active Last Uni vers edema edema 2-19 Assessmen ity of 00:00: t & Plan: 00 Alberto TIRADO g of this Anderso note n might be Cancer different Center from the original. Patient with mild ankle edema that is mostly controlle d with furosemid e PRN. Previous echo shows normal cardiac function so edema does not to be secondary to cardiac etiology. Will continue with furosemid e PRN but all is symptoms worsen. Will plan to repeat echo at next visit in 1 year for follow up. Encounter Encounter Disease Active Last Uni vers for for 2-19 Assessmen ity of examinatio examinatio 00:00: t & Plan: [place] n prior to n prior to Alberto TIRADO antineopla antineopla g of this [facility] stic stic note n chemothera chemothera might be Cancer [facility] different Center from the original. -Patient does not have history of atrial fibrillat ion.-Donita ent is off of metoprolo l for last 3 weeks and he does not have any symptoms. Her heart rate and blood pressure isn't controlle d.-Patien t was advised not to continue metoprolo l at this point. Mucositis Mucositis Disease Active Uni vers (ulcerativ (ulcerativ 2-07 it y of e) due to e) due to 00[place] antineopla antineopla 00 MD frank marie [facility] therapy therapy n [facility] Center Other Other Disease Active Univers ovarian ovarian 2-05 ity of cysts cysts 00:00: [place] 00 MD Ovi [facility]bert [facility] Infiltrati Infiltrati Disease Active U nivers ng duct ng duct 1-28 ity of carcinoma carcinoma 00:00[place] of of 00 MD ilda romeropin An derso g sites of g sites of n left left Cancer female female Center breast breast Claustroph Claustroph Disease Active U nivers obia obia 1-23 ity of 00:00: [place] 00 MD Ovi [facility]bert [facility] 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 00:00: [place] of of 00 axillary axillary Bruce o lymph node lymph node n [facility] HER2-posit HER2-posit Disease Active U nivers ervin ervin 1-17 ity of carcinoma carcinoma 00:00[place] of breast of breast 00 MD Ovi [facility]bert [facility] Estrogen Estrogen Disease Active Unive rs receptor receptor 1-17 ity of positive positive 00:00: [place] status status 00 (ER+) (ER+) Ovi [facility] Encounter Encounter Disease Active Uni vers for for 1-17 ity of chemothera chemothera [place] py py 00 [place] Ovi [facility] Infiltrati Infiltrati Disease Active U nivers ng duct ng duct 1-09 ity of carcinoma carcinoma 00:00[place] of of [place] ilda romeropin An derso g sites of g sites of n right right Cancer female female Center breast breast Bilateral Bilateral Disease Active Uni vers arthritis arthritis 7-13 ity of of knees of knees 00:00: [place] 00 MD Ovi herbert [facility] Hypothyroi Hypothyroi Disease Active U nivers dism dism 6-17 ity of 00:00: [place] 00 MD Ovi herbert [facility] Osteoarthr Osteoarthr Disease Active U nivers itis itis 6-17 ity of 00:00: [place] 00 MD [facility] Disease Disease Disease Active Univers type type 6-17 ity of AND/OR AND/OR 00:00: [place] category category 00 unknown unknown [facility] Allergies, Adverse Reactions, Alerts Allergy Allergy Status Severity Reaction(s) Onset Inactive Treating Comm ents Source Name Type Date Date Clinician TRAMADOL DRUG Active Nausea 2019-0 MD INGREDI 6-21 Anderso 00:00: n 00 TRAMADOL DRUG Active Nausea 2019-0 MD INGREDI 6-21 Anderso 00:00: n 00 TRAMADOL DRUG Active Nausea 2019-0 MD INGREDI 6-21 Anderso 00:00: n 00 TRAMADOL DRUG Active Nausea 2019-0 MD INGREDI 6-21 Anderso 00:00: n 00 TRAMADOL DRUG Active Nausea 2019-0 MD INGREDI 6-21 Anderso 00:00: n 00 TRAMADOL DRUG Active Nausea 2019-0 MD INGREDI 6-21 Anderso 00:00: n 00 TRAMADOL DRUG Active Nausea 2019-0 MD INGREDI 6-21 Anderso 00:00: n 00 TRAMADOL DRUG Active Nausea 2019-0 MD INGREDI 6-21 Anderso 00:00: n 00 TRAMADOL DRUG Active Nausea 2019-0 MD INGREDI 6-21 Anderso 00:00: n 00 TRAMADOL DRUG Active Nausea 2019-0 MD INGREDI 6-21 Anderso 00:00: n 00 TRAMADOL DRUG Active Nausea 2019-0 MD INGREDI 6-21 Anderso 00:00: n 00 TRAMADOL DRUG Active Nausea 2019-0 MD INGREDI 6-21 Anderso 00:00: n 00 TRAMADOL DRUG Active Nausea 2019-0 MD INGREDI 6-21 Anderso 00:00: n 00 TRAMADOL DRUG Active Nausea 2019-0 MD INGREDI 6-21 Anderso 00:00: n 00 TRAMADOL DRUG Active Nausea 2019-0 MD INGREDI 6-21 Anderso 00:00: n 00 TRAMADOL DRUG Active Nausea 2019-0 MD INGREDI 6-21 Anderso 00:00: n 00 TRAMADOL DRUG Active Nausea 2019-0 MD INGREDI 6-21 Anderso 00:00: n 00 TRAMADOL DRUG Active Nausea 2019-0 MD INGREDI 6-21 Anderso 00:00: n 00 TRAMADOL DRUG Active Nausea 2019-0 MD INGREDI 6-21 Anderso 00:00: n 00 TRAMADOL DRUG Active Nausea 2019-0 MD INGREDI 6-21 Anderso 00:00: n 00 TRAMADOL DRUG Active Nausea 2019-0 MD INGREDI 6-21 Anderso 00:00: n 00 TRAMADOL DRUG Active Nausea 2019-0 MD INGREDI 6-21 Anderso 00:00: n 00 TRAMADOL DRUG Active Nausea 2019-0 MD INGREDI 6-21 Anderso 00:00: n 00 TRAMADOL DRUG Active Nausea 2019-0 MD INGREDI 6-21 Anderso 00:00: n 00 TRAMADOL DRUG Active Nausea 2019-0 MD INGREDI 6-21 Anderso 00:00: n 00 TRAMADOL DRUG Active Nausea 2019-0 MD INGREDI 6-21 Anderso 00:00: n 00 TRAMADOL DRUG Active Nausea 2019-0 MD INGREDI 6-21 Anderso 00:00: n 00 TRAMADOL DRUG Active Nausea 2019-0 MD INGREDI 6-21 Anderso 00:00: n 00 TRAMADOL DRUG Active Nausea 2019-0 MD INGREDI 6-21 Anderso 00:00: n 00 TRAMADOL DRUG Active Nausea 2019-0 MD INGREDI 6-21 Anderso 00:00: n 00 TRAMADOL DRUG Active Nausea 2019-0 MD INGREDI 6-21 Anderso 00:00: n 00 TRAMADOL DRUG Active Nausea 2019-0 MD INGREDI 6-21 Anderso 00:00: n 00 TRAMADOL DRUG Active Nausea 2019-0 MD INGREDI 6-21 Anderso 00:00: n 00 TRAMADOL DRUG Active Nausea 2019-0 MD INGREDI 6-21 Anderso 00:00: n 00 TRAMADOL DRUG Active Nausea 2019-0 MD INGREDI 6-21 Anderso 00:00: n 00 TRAMADOL DRUG Active Nausea 2019-0 MD INGREDI 6-21 Anderso 00:00: n 00 TRAMADOL DRUG Active Nausea 2019-0 MD INGREDI 6-21 Anderso 00:00: n 00 TRAMADOL DRUG Active Nausea 2019-0 MD INGREDI 6-21 Anderso 00:00: n 00 TRAMADOL DRUG Active Nausea 2019-0 MD INGREDI 6-21 Anderso 00:00: n 00 Tramadol Propensi Active GI 2019-0 nausea Univer s ty to Intolerance 6-21 ity o f adverse 00:00: [place] reaction 00 MD s [facility] TRAMADOL DRUG Active Nausea 2019-0 MD INGREDI 6-21 Anderso 00:00: n 00 TRAMADOL DRUG Active Nausea 2019-0 MD INGREDI 6-21 Anderso 00:00: n 00 TRAMADOL DRUG Active Nausea 2019-0 MD INGREDI 6-21 Anderso 00:00: n 00 TRAMADOL DRUG Active Nausea 2019-0 MD INGREDI 6-21 Anderso 00:00: n 00 TRAMADOL DRUG Active Nausea 2019-0 MD INGREDI 6-21 Anderso 00:00: n 00 TRAMADOL DRUG Active Nausea 2019-0 MD INGREDI 6-21 Anderso 00:00: n 00 TRAMADOL DRUG Active Nausea 2019-0 MD INGREDI 6-21 Anderso 00:00: n 00 TRAMADOL DRUG Active Nausea 2019-0 MD INGREDI 6-21 Anderso 00:00: n 00 TRAMADOL DRUG Active Nausea 2019-0 MD INGREDI 6-21 Anderso 00:00: n 00 TRAMADOL DRUG Active Nausea 2019-0 MD INGREDI 6-21 Anderso 00:00: n 00 TRAMADOL DRUG Active Nausea 2019-0 MD INGREDI 6-21 Anderso 00:00: n 00 TRAMADOL DRUG Active Nausea 2019-0 MD INGREDI 6-21 Anderso 00:00: n 00 TRAMADOL DRUG Active Nausea 2019-0 MD INGREDI 6-21 Anderso 00:00: n 00 TRAMADOL DRUG Active Nausea 2019-0 MD INGREDI 6-21 Anderso 00:00: n 00 TRAMADOL DRUG Active Nausea 2019-0 MD INGREDI 6-21 Anderso 00:00: n 00 TRAMADOL DRUG Active Nausea 2019-0 MD INGREDI 6-21 Anderso 00:00: n 00 TRAMADOL DRUG Active Nausea 2019-0 MD INGREDI 6-21 Anderso 00:00: n 00 TRAMADOL DRUG Active Nausea 2019-0 MD INGREDI 6-21 Anderso 00:00: n 00 TRAMADOL DRUG Active Nausea 2019-0 MD INGREDI 6-21 Anderso 00:00: n 00 TRAMADOL DRUG Active Nausea 2019-0 MD INGREDI 6-21 Anderso 00:00: n 00 TRAMADOL DRUG Active Nausea 2019-0 MD INGREDI 6-21 Anderso 00:00: n 00 TRAMADOL DRUG Active Nausea 2019-0 MD INGREDI 6-21 Anderso 00:00: n 00 TRAMADOL DRUG Active Nausea 2019-0 MD INGREDI 6-21 Anderso 00:00: n 00 TRAMADOL DRUG Active Nausea 2019-0 MD INGREDI 6-21 Anderso 00:00: n 00 ADHESIVE Drug Active High Rash 2019-0 MD Class 2-19 Anderso 00:00: n 00 ADHESIVE Drug Active High Rash 2019-0 MD Class 2-19 Anderso 00:00: n 00 ADHESIVE Drug Active High Rash 2019-0 MD Class 2-19 Anderso 00:00: n 00 ADHESIVE Drug Active High Rash 2019-0 MD Class 2-19 Anderso 00:00: n 00 ADHESIVE Drug Active High Rash 2019-0 MD Class 2-19 Anderso 00:00: n 00 ADHESIVE Drug Active High Rash 2019-0 MD Class 2-19 Anderso 00:00: n 00 ADHESIVE Drug Active High Rash 2019-0 MD Class 2-19 Anderso 00:00: n 00 ADHESIVE Drug Active High Rash 2019-0 MD Class 2-19 Anderso 00:00: n 00 ADHESIVE Drug Active High Rash 2019-0 MD Class 2-19 Anderso 00:00: n 00 ADHESIVE Drug Active High Rash 2019-0 MD Class 2-19 Anderso 00:00: n 00 ADHESIVE Drug Active High Rash 2019-0 MD Class 2-19 Anderso 00:00: n 00 ADHESIVE Drug Active High Rash 2019-0 MD Class 2-19 Anderso 00:00: n 00 ADHESIVE Drug Active High Rash 2019-0 MD Class 2-19 Anderso 00:00: n 00 ADHESIVE Drug Active High Rash 2019-0 MD Class 2-19 Anderso 00:00: n 00 ADHESIVE Drug Active High Rash 2019-0 MD Class 2-19 Anderso 00:00: n 00 ADHESIVE Drug Active High Rash 2019-0 MD Class 2-19 Anderso 00:00: n 00 ADHESIVE Drug Active High Rash 2019-0 MD Class 2-19 Anderso 00:00: n 00 ADHESIVE Drug Active High Rash 2019-0 MD Class 2-19 Anderso 00:00: n 00 ADHESIVE Drug Active High Rash 2019-0 MD Class 2-19 Anderso 00:00: n 00 ADHESIVE Drug Active High Rash 2019-0 MD Class 2-19 Anderso 00:00: n 00 ADHESIVE Drug Active High Rash 2019-0 MD Class 2-19 Anderso 00:00: n 00 ADHESIVE Drug Active High Rash 2019-0 MD Class 2-19 Anderso 00:00: n 00 ADHESIVE Drug Active High Rash 2019-0 MD Class 2-19 Anderso 00:00: n 00 ADHESIVE Drug Active High Rash 2019-0 MD Class 2-19 Anderso 00:00: n 00 ADHESIVE Drug Active High Rash 2019-0 MD Class 2-19 Anderso 00:00: n 00 ADHESIVE Drug Active High Rash 2019-0 MD Class 2-19 Anderso 00:00: n 00 ADHESIVE Drug Active High Rash 2019-0 MD Class 2-19 Anderso 00:00: n 00 ADHESIVE Drug Active High Rash 2019-0 MD Class 2-19 Anderso 00:00: n 00 ADHESIVE Drug Active High Rash 2019-0 MD Class 2-19 Anderso 00:00: n 00 ADHESIVE Drug Active High Rash 2019-0 MD Class 2-19 Anderso 00:00: n 00 ADHESIVE Drug Active High Rash 2019-0 MD Class 2-19 Anderso 00:00: n 00 ADHESIVE Drug Active High Rash 2019-0 MD Class 2-19 Anderso 00:00: n 00 ADHESIVE Drug Active High Rash 2019-0 MD Class 2-19 Anderso 00:00: n 00 ADHESIVE Drug Active High Rash 2019-0 MD Class 2-19 Anderso 00:00: n 00 ADHESIVE Drug Active High Rash 2019-0 MD Class 2-19 Anderso 00:00: n 00 ADHESIVE Drug Active High Rash 2019-0 MD Class 2-19 Anderso 00:00: n 00 ADHESIVE Drug Active High Rash 2019-0 MD Class 2-19 Anderso 00:00: n 00 ADHESIVE Drug Active High Rash 2019-0 MD Class 2-19 Anderso 00:00: n 00 ADHESIVE Drug Active High Rash 2019-0 MD Class 2-19 Anderso 00:00: n 00 ADHESIVE Drug Active High Rash 2019-0 MD Class 2-19 Anderso 00:00: n 00 ADHESIVE Drug Active High Rash 2019-0 MD Class 2-19 Anderso 00:00: n 00 ADHESIVE Drug Active High Rash 2019-0 MD Class 2-19 Anderso 00:00: n 00 ADHESIVE Drug Active High Rash 2019-0 MD Class 2-19 Anderso 00:00: n 00 ADHESIVE Drug Active High Rash 2019-0 MD Class 2-19 Anderso 00:00: n 00 ADHESIVE Drug Active High Rash 2019-0 MD Class 2-19 Anderso 00:00: n 00 ADHESIVE Drug Active High Rash 2019-0 MD Class 2-19 Anderso 00:00: n 00 ADHESIVE Drug Active High Rash 2019-0 MD Class 2-19 Anderso 00:00: n 00 ADHESIVE Drug Active High Rash 2019-0 MD Class 2-19 Anderso 00:00: n 00 ADHESIVE Drug Active High Rash 2019-0 MD Class 2-19 Anderso 00:00: n 00 ADHESIVE Drug Active High Rash 2019-0 MD Class 2-19 Anderso 00:00: n 00 ADHESIVE Drug Active High Rash 2019-0 MD Class 2-19 Anderso 00:00: n 00 ADHESIVE Drug Active High Rash 2019-0 MD Class 2-19 Anderso 00:00: n 00 ADHESIVE Drug Active High Rash 2019-0 MD Class 2-19 Anderso 00:00: n 00 ADHESIVE Drug Active High Rash 2019-0 MD Class 2-19 Anderso 00:00: n 00 ADHESIVE Drug Active High Rash 2019-0 MD Class 2-19 Anderso 00:00: n 00 ADHESIVE Drug Active High Rash 2019-0 MD Class 2-19 Anderso 00:00: n 00 ADHESIVE Drug Active High Rash 2019-0 MD Class 2-19 Anderso 00:00: n 00 ADHESIVE Drug Active High Rash 2019-0 MD Class 2-19 Anderso 00:00: n 00 ADHESIVE Drug Active High Rash 2019-0 MD Class 2-19 Anderso 00:00: n 00 ADHESIVE Drug Active High Rash 2019-0 MD Class 2-19 Anderso 00:00: n 00 ADHESIVE Drug Active High Rash 2019-0 MD Class 2-19 Anderso 00:00: n 00 ADHESIVE Drug Active High Rash 2019-0 MD Class 2-19 Anderso 00:00: n 00 ADHESIVE Drug Active High Rash 2019-0 MD Class 2-19 [facility] 00:00: n 00 Adhesive Drug Active Other (See 2019-0 Tegaderm Un donell Allergy Comments) 2-19 - ity of 00:00: itching, [place] 00 redepdritoess; lasted 5 [facility] Nsaids Propensi Active Ulcer Methodi (Non-Osorio ty to [address] roidal adverse 00:00: [facility] Anti-Inf reaction 00 l lammator s to y Drug) drug No Known Propensi Active Method i Drug ty to 09-24 st Allergie adverse 00:00: Hospita s reaction 00 l s to drug Family History Family Member Diagnosis Comments Start Date Stop Date Source Cousin Rheum arthritis [facility] Maternal uncle [facility] Natural mother Colon polyps [facility] [place] [facility] Natural mother Skin cancer [facility] [place] [facility] Nephew [facility] Niece [facility] Other [facility] Paternal aunt [facility] Paternal cousin [facility] [place] [facility] Paternal grandfather [facility]ity [facility] Paternal grandmother [facility] [place] [facility] Paternal uncle [facility] Natural sister [facility] Natural son [facility] Natural brother [facility] [place] [facility] [place] [facility] Natural father [facility] Granddaughter [facility] Maternal aunt Breast cancer [facility] [place] [facility] Maternal cousin [facility] [place] [facility] Maternal grandfather [facility] [place] [facility] Maternal grandmother Univ ersity [facility] Social History Social Habit Start Date Stop Date Quantity Comments Source Exposure to 2022-06-17 2022-06-27 Not sure University of SARS-CoV-2 (event) 00:00:00 10:50:00 [facility] Notus Alcohol intake 2022-05-16 2022-05-16 Current drinker Unive rsity of 00:00:00 00:00:00 of alcohol [place] MD Veliz son (finding) [facility] Cigarettes smoked 2018-04-26 2018-04-26 Univers ity of current (pack per 00:00:00 00:00:00 [place] Guy Aquino Ge ) - Reported Cancer Ce nter Cigarette 2018-04-26 2018-04-26 University of pack-years 00:00:00 00:00:00 Robert richard [facility] Tobacco use and 2018-04-26 2018-04-26 Smokeless Universit y of exposure 00:00:00 00:00:00 tobacco non-user [facility] Tobacco Comment 2018-04-26 2018-04-26 social smoking Unive rsity of 00:00:00 00:00:00 with friends Robert TIRADO [facility] Alcohol Comment 2018-04-26 2018-04-26 david with Unive rsity of 00:00:00 00:00:00 tunisian twice a [facility] History of tobacco 2016-04-26 Current smoker Un iversity of use 00:00:00 Robert richard [facility] Sex Assigned At [birth year] [facility] Smoking Status Start Date Stop Date Source Tobacco smoking [facility] consumption unknown Ex-smoker 2018-04-26 00:00:00 2018-04-26 [place] o f Robert TIRADO 00:00:[address] [facility] Medications Ordered Filled Start Stop Current Ordering Indication Dosage Frequency Signature Comments Components Source Medication Medication Date Date Medication? Clinician (SIG) Name Name anastrozole Yes Infiltratin 1mg Take 1 Univers (ARIMIDEX) 2-20 g duct tablet (1 it y of 1 mg tablet 00:00: carcinoma, mg) by [place] 00 NOS of mouth overlapping daily. Bruce o lesion of n breast Cancer <Female; Center Right> anastrozole 2022- No Infiltratin 1mg Take 1 Univers (ARIMIDEX) 05-19 02-20 g duct tablet (1 i ty of 1 mg tablet 00:00: 00:00 carcinoma, mg) by [place] 00 :00 NOS of mouth overlapping daily. Bruce o lesion of n breast Cancer <Female; Center Right> anastrozole 2022- No Infiltratin TAKE 1 Univers (ARIMIDEX) 05-19 02-09 g duct TABLET BY i ty of 1 mg tablet 00:00: 00:00 carcinoma, MOUTH [place] 00 :00 NOS of EVERY MD overlapping DAYStrengt An derso lesion of h: 1 mg n breast Cancer <Female; Center Right> zinc 2022- No 220mg Take 220 Univers sulfate 2-03 02-03 mg by ity of (ZINC-220 13:50: 00:00 mouth [place] ORAL) 50 :00 daily. MD [facility] levothyroxi Yes 88ug Take 1 Univ ers ne 2-03 tablet (88 ity of (SYNTHROID, 11:41: mcg) by Terrence as LEVOTHROID) 32 mouth 88 mcg daily. [facility] tablet n Cancer Center cholecalcif Yes 1000{un Take 1,000 Univers alcira, 2-03 it'brian unit ity of vitamin D3, 11:41: ing'on' marking on [place] (VITAMIN D3 32 U-100's U-100 MD ORAL) yringe} syringe by [facility] so mouth n daily. Cancer Center ascorbic Yes vitamin C 1000mg Take 1 Univers acid, 2-03 deficiency tablet ity of vitamin C, 11:41: (1,000 mg) [place] (VITAMIN C) 32 by mouth 1000 mg daily. [facility] tablet n Cancer Center MAGNESIUM Yes 1{tbl} Take 1 Univ ers ORAL 2-03 tablet by ity of 11:41: mouth [place] 32 daily. MD [facility] ferrous Yes Iron 325mg Take 1 Univers sulfate 325 2-03 deficiency tablet ity of (65 FE) MG 00:00: anemia, not (325 mg) [place] EC tablet 00 otherwise by mouth M D specified every Anderso other day. n Cancer Center clobetasol 2021-04 Yes Hand eczema Apply Univers (Temovate) 1-28 topically ity of 0.05% cream 00:00: to [place] 00 affected MD area(s) Andmelissao twice n daily. to Cancer affected Center areas on hands BID prn flares triamcinolo 2021-04 Yes Hand eczema Apply Univers ne 1-28 topically ity of (KENALOG) 00:00: to [place] 0.1% cream 00 affected MD area(s) Anderso twice n daily. to Cancer areas of Center rash. Avoid face, armpit, groin bimatoprost 2021-04- No Madarosis 1{appli Administer Univers (LATISSE) 05-07 of eyelid cation} 1 i ty of 0.03 % 00:00: 05:59 <Unspecifie applicatio [place] ophthalmic 00 :00 d side; n to both M D solution Unspecified eyes at A nderso eyelid> bedtime. n Cancer Notus triamcinolo 2021-04- No Hand eczema to Univers ne 05-07 affected ity of (KENALOG) 00:00: 00:00 areas [place] ointment 00 :00 rash , 0.1% avoid Anderso face, n armpit, [facility] groin Center erythromyci 2021-04 Yes Blepharitis Apply a Univers n (ROMYCIN) 0-04 <Unspecifie thin strip ity of ophthalmic 00:00: d side; of [place] ointment 00 Unspecified ointment MD eyelid> over Anderso bilateral n eyelids at Cancer night time Center venlafaxine Yes TAKE ONE Un donell (EFFEXOR-XR - (1) ity of ) 37.5 mg 00:00: CAPSULE(S) [place] 24 hr 00 BY MOUTH MD capsule EVERY Anderso MORNING. [facility] metoprolol Yes Hypertensio 25mg Take 1 Univers succinate 6-22 n tablet (25 ity of (TOPROL XL) 00:00: mg) by [facility] 25 mg 24 hr 00 mouth MD tablet daily. [facility] furosemide Yes Localized 20mg Take 1 Univers (LASIX) 20 6-22 edema tablet (20 it y of mg tablet 00:00: mg) by [place] 00 mouth MD daily as Anderso needed for n edema. [facility] atorvastati 2022- No Dyslipidemi 40mg Take 1 Univers n (Lipitor) 6- 02-03 a tablet (40 i ty of 40 mg 00:00: 00:00 mg) by [place] tablet 00 :00 mouth at MD bedtime. [facility] furosemide 2021- No Localized 20mg TAKE 1 Univers (LASIX) 20 5-25 06-22 edema TABLET (20 i ty of mg tablet 00:00: 00:00 MG) BY [place] 00 :00 MOUTH MD DAILY Anderso NEEDED FOR n EDEMA. Cancer Center clobetasol Hand eczema Apply Univers (Temovate) 07-06 topically ity of 0.05% 00:00: 00:00 to [place] ointment 00 :00 affected MD area(s) Anderso twice n daily. To Cancer hands for Center flares (discontin ue when improved, avoid use on face, armpit, groin) hydrocortis 2021- No 1{appli Apply 1 Univers one 1% 07-02 cation} applicatio ity of cream 11:37: 00:00 n [place] 51 :00 topically MD to Ovi affected n area(s) as Cancer needed. Notus PARoxetine 10mg Take 10 mg Univers (PAXIL) 10 07-02 by mouth ity of mg tablet 11:37: 00:00 every [place] 51 :00 morning. 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 [facility] furosemide 2021- No Localized 20mg TAKE 1 Univers (LASIX) 20 2-10 05-20 edema TABLET (20 i ty of mg tablet 00:00: 00:00 MG) BY [place] 00 :00 MOUTH DAILY Anderso NEEDED FOR n EDEMA. Cancer Notus acetaminoph 2021- No TAKE 1 Uni vers en-codeine 2-08 11-30 TABLET BY ity of (TYLENOL 00:00: 00:00 MOUTH [place] #3) 300 00 :00 TWICE A MD mg-30 mg DAY Anderso tablet NEEDED n Cancer Notus anastrozole 2022- No Infiltratin TAKE 1 Univers (ARIMIDEX) 1-18 02-09 g duct TABLET BY i ty of 1 mg tablet 00:00: 00:00 carcinoma, MOUTH [place] 00 :00 NOS of EVERY DAY overlapping Ovi lesion of n breast Cancer <Female; Center Right> metoprolol 2020-04 Yes 100mg QD Take 100 Me thodi succinate 2-[address] XL 10:42: mouth Hospita (TOPROL-XL) 54 daily. l 100 mg 24 hr tablet levothyroxi 2020-04 Yes 112ug QD Take 112 M ethodi ne 2-[address] (SYNTHROID, 10:42: mouth Hospi ta LEVOXYL) 54 every l 112 mcg morning. tablet aspirin 2020-04 Yes 81mg QD Take 81 mg Meth noel (ECOTRIN) 2-[address] 81 MG 10:42: daily. Hospita enteric 54 l coated tablet cholecalcif 2020-04 Yes 2000U QD Take 2,000 Methodi alcira, 2-[address] vitamin D3, 10:42: mouth Hospi ta (VITAMIN 54 daily. l D3) 2,000 unit capsule capsule ibuprofen 2020-04 Yes 200mg Q6H Take 200 Met hodi (ADVIL,MOTR 2-[address] IN) 200 MG 10:42: mouth Hospit a tablet 54 every 6 l (six) hours as needed for mild pain. ketoconazol 2020-04 Yes 1{appli Q.5D Apply 1 Methodi e (NIZORAL) 2-06 cation} applicatio st 2 % cream 10:42: n Hospita 54 topically l 2 (two) times a day. sodium Yes Oral Apply to [facility] fluoride-po 8-26 infection teeth it y of tassium 00:00: twice [place] nitrate 00 daily. (Prevident Anderso 5000 Enamel n Protect) Cancer 1.1%-5% Center pste dental paste omeprazole Yes Reflux TAKE 1 Uni vers (PriLOSEC) 4-27 esophagitis CAPSULE BY ity of 40 MG 00:00: MOUTH [place] capsule 00 EVERY DAY 30 MINUTES Anderso BEFORE n BREAKFAST Cancer Center atorvastati 2021- No Dyslipidemi 20mg Take 1 Univers n (Lipitor) 3-16 06-22 a tablet (20 i ty of 20 mg 00:00: 00:00 mg) by [place] tablet 00 :00 mouth at MD bedtime. Anderso n Cancer Center triamcinolo 2019-04- No Hand eczema APPLY TO [facility] ne 0-30 11-28 AFFECTED ity of (KENALOG) 00:00: 00:00 AREA ON [place] 0.1% 00 :00 HANDS ointment TWICE A Anderso DAY FOR 4 n WEEKS, Cancer DECREASE 2 Center TIMES A DAY ON WEEKDAYS ONLY FOR 4 WEEKS, THEN STOP REPEAT CYCLE FOR FLARES metoprolol 2021- No Hypertensio 50mg Take 1 Univers succinate 8- 06-22 n tablet (50 ity of (TOPROL XL) 00:00: 00:00 mg) by [place] as 50 mg 24 hr 00 :00 mouth MD tablet daily. 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 [facility] ferrous 2022- No Iron 325mg Take 1 Univer s sulfate 325 6-05 02-03 deficiency tablet ity of (65 FE) MG 00:00: 00:00 anemia, not (325 mg) [place] EC tablet 00 :00 otherwise by mouth M D specified daily. 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 n ophthalmic right Cancer solution female Center breast diclofenac Yes Q.25D Apply Metho di (VOLTAREN) 3-[address] 1 % gel 00:00: 4 (four) Hospit a 00 times a l day. diclofenac Yes 1{appli Apply 1 U nivers sodium 3-22 cation} applicatio ity of (Voltaren) 00:00: n [place] 1 % gel 00 topically MD to [facility] affected n area(s) as Cancer needed. Notus meloxicam Yes TAKE 1 Method i (MOBIC) 15 9-[address] mg tablet 00:00: MOUTH Hospita 00 EVERY DAY l HYDROcodone Yes 1{tbl} Q.5D Take 1 Me thodi -acetaminop 3-[address] hen (NORCO) 00:00: mouth 2 Hos wilfrido 5-325 mg 00 (two) l per tablet times a day as needed. for pain Vital Signs Vital Name Observation Time Observation Value Comments Source WEIGHT 2019-09-06 00:00:00 75 kg Systolic blood 2022-05-13 17:30:01 135 mm[Hg] Univer sity of pressure [facility] Diastolic blood 2022-05-13 17:30:01 77 mm[Hg] Unive rsity of pressure [facility] Heart rate 2022-05-13 17:30:01 72 /min [facility] MD [facility] Body temperature 2022-05-13 17:30:01 36.5 Yandy [facility] MD [facility] Respiratory rate 2022-05-13 17:30:01 18 /min [facility] MD [facility] Body weight 2022-05-13 17:30:01 87.2 kg [facility] MD [facility] BMI 2022-05-13 17:30:01 37.25 kg/m2 [facility] MD Barrera [facility] Oxygen saturation in 2022-05-13 17:30:01 99 /min [facility] Arterial blood by [place] MD Monty victor Pulse oximetry Cancer Center Body height 2021-11-19 17:37:00 153 cm [facility] MD [facility] on [facility] Procedures Procedure Date / Time Performing Clinician Source Performed COMPLETE BLOOD COUNT W/ 2022-06-17 17:55:49 Checo [facility] DIFFERENTIAL [facility] IRON LEVEL 2022-06-17 17:55:49 Checo [facility] [place] [facility] FERRITIN LVL 2022-06-17 17:55:49 Checo [facility] [place] [facility] TRANSFERRIN 2022-06-17 17:55:49 Checo [facility] Results CBC 2022-06-17 17:55:49 Checo [facility] [place] [facility] MANUAL DIFFERENTIAL 2022-06-17 17:55:49 [place] [facility] URINE CULTURE 2022-05-13 19:00:00 Dane Uribe [facility] er Center URINALYSIS WITH 2022-05-13 19:00:00 Jojo [facility] MICROSCOPIC IF INDICATED MD [facility] COMPLETE BLOOD COUNT W/ 2022-05-13 16:59:00 Checo [facility] DIFFERENTIAL [facility] Center IRON LEVEL 2022-05-13 16:59:00 Checo [facility] er Center FERRITIN LVL 2022-05-13 16:59:00 Checo [facility] er Center TRANSFERRIN 2022-05-13 16:59:00 Che[facility] Center Results CBC 2022-05-13 16:59:00 Checo [facility] Center MANUAL DIFFERENTIAL 2022-05-13 16:59:00 Checo [facility] Center COMPLETE BLOOD COUNT W/ 2022-03-07 19:02:34 Checo [facility] DIFFERENTIAL [facility] Center IRON LEVEL 2022-03-07 19:02:34 [place] Center FERRITIN LVL 2022-03-07 19:02:34 Che[facility] Center TRANSFERRIN 2022-03-07 19:02:34 Checo [facility] Center Results CBC 2022-03-07 19:02:34 Checo [facility] Center MANUAL DIFFERENTIAL 2022-03-07 19:02:34 Checo [facility] Center COMPLETE BLOOD COUNT W/ 2022-01-11 18:49:00 Checo [facility] DIFFERENTIAL [facility] er Center IRON LEVEL 2022-01-11 18:49:00 [facility] Center FERRITIN LVL 2022-01-11 18:49:00 Che[facility] Center TRANSFERRIN 2022-01-11 18:49:00 [facility] Center Results CBC 2022-01-11 18:49:00 Che[facility] Center MANUAL DIFFERENTIAL 2022-01-11 18:49:00 Checo [facility] Center US HEAD NECK SOFT TISSUE 2021-12-08 15:01:42 [facility]ane [facility] DEXA BONE MINERAL DENSITY 2021-11-19 17:52:41 UribeDane [facility] [place] BOTH HIPS AND SPINE [facility] MAMMO DIGITAL DIAGNOSTIC 2021-11-19 17:25:25 [facility]Dane [facility] [place] BILATERAL W NOEMI [facility] COMPLETE BLOOD COUNT W/ 2021-11-19 14:54:00 Checo [facility] DIFFERENTIAL [facility] Center IRON LEVEL 2021-11-19 14:54:00 Checo [facility] [place] [facility] FERRITIN LVL 2021-11-19 14:54:00 Checo [facility] [place] [facility] TRANSFERRIN 2021-11-19 14:54:00 Checo [facility] Center Results CBC 2021-11-19 14:54:00 [facility] Center MANUAL DIFFERENTIAL 2021-11-19 14:54:00 [place] [facility] OSI CT CHEST 2021-10-08 09:02:00 Lauren Tomas [facility] LIPID PANEL 2021-09-29 16:04:[address] [facility] COMPLETE BLOOD COUNT W/ 2021-08-20 16:06:57 Checo [facility] DIFFERENTIAL [facility] Center IRON LEVEL 2021-08-20 16:06:57 [facility] LVL 2021-08-20 16:06:57 Checo [facility] [place] [facility] TRANSFERRIN 2021-08-20 16:06:57 [facility] Center Results CBC 2021-08-20 16:06:57 Checo [facility] [place] [facility] MANUAL DIFFERENTIAL 2021-08-20 16:06:57 Sapphire [facility] [place] PATHOLOGY BIOPSY 2021-07-29 17:15:00 Jd Garcia [facility] INTERPRETATION [facility] DIAGNOSTIC UPPER 2021-07-29 17:03:00 Jd Garcia [facility] GASTROINTESTINAL ENDOSCOPY MD Patti cruz [facility] COVID-19 (SARS-COV-2) 2021-07-27 16:15:00 Thai [place] [facility] PCR ASYMPTOMATIC [facility] COMPLETE BLOOD COUNT W/ 2021-07-02 17:27:00 Checo [facility] DIFFERENTIAL [facility] IRON LEVEL 2021-07-02 17:27:00 Checo [facility] FERRITIN LVL 2021-07-02 17:27:00 Checo [facility] TRANSFERRIN 2021-07-02 17:27:00 Checo [facility] Results CBC 2021-07-02 17:27:00 Checo [facility] MANUAL DIFFERENTIAL 2021-07-02 17:27:00 Sapphire [facility] [place] Plan of Care Planned Activity Planned Date Details Comments Source Future Scheduled 2022-06-29 COVID-19 Vaccination [facility] Test 15:06:42 (#1) [code = COVID-19 MD And erson [facility] Vaccination (#1)] Center Future Scheduled 2022-06-27 COVID-19 VACCINE (#1) [facility] Test 10:51:37 [code = COVID-19 VACCINE (#1)] Future Scheduled 2022-06-27 65+ PNEUMOCOCCAL [facility] Test 10:51:37 VACCINE (1 - PCV) [code = 65+ PNEUMOCOCCAL VACCINE (1 - PCV)] Future Scheduled 2022-06-27 Hepatitis C screening [facility] Test 10:51:37 (procedure) [code = 310014870] Future Scheduled 2022-06-27 SHINGLES VACCINES ([facility] 10:51:37 of 2) [code = SHINGLES VACCINES (1 of 2)] Future Scheduled 2022-06-27 BREAST CANCER [facility] Test 10:51:37 SCREENING [code = BREAST CANCER SCREENING] Future Scheduled 2022-06-27 COLONOSCOPY SCREENING [facility] Test 10:51:37 [code = COLONOSCOPY SCREENING] Future Scheduled 2022-06-27 INFLUENZA VACCINE [facility] Test 10:51:37 [code = INFLUENZA VACCINE] Encounters Start End Encounter Admission Attending Care Care Encounter Source Date/Time Date/Time Type Type Clinicians Facility Department ID 2022-01-29 Outpatient SYSTEM, STEPHIE CARD [id number] 09:30:41 PROVIDER Bruce o piedad 2021-10-05 Outpatient SYSTEM, STEPHIE CARD [id number] 07:16:12 PROVIDER Bruce o piedad 2019-10-16 Outpatient MEYER, STEPHIE CARD [id number] 10:05:45 HOLA herbert 2019-10-16 Outpatient MEYER, STEPHIE CARD [id number] 10:05:45 HOLA De Leonerso piedad 2022-06-29 2022-06-29 Telemedici [place], 1.2.840.1 [id number] Univers 15:30:00 16:06:30 ne Sapphire 77429.1.1 ity of 3.412.2.7 [place] .3.666061 .8 [facility] 2022-06-29 2022-06-29 Outpatient SANA KESSLER MDA MDA [id number] 15:29:02 16:06:30 SAPPHIRE herbert 2022-06-29 2022-06-29 Sonya Kessler, 1.2.840.1 [id number] Univers 00:00:00 00:00:00 Only Sapphire 59413.1.1 ity of 3.412.2.7 [place] .3.304428 .8 [facility] 2022-06-27 2022-06-27 Outpatient DANE CHERRY MDA, MDA [id number] 10:51:35 10:51:35 Bruce o piedad 2022-06-27 2022-06-27 Travel 1.2.840.1 [id number] [id number] Univers 00:00:00 00:00:00 39849.1.1 350.1.13.41 ity of 3.412.2.7 2.[place].7.3.698 [place] .3.171209 084.8 MD [facility] 2022-06-22 2022-06-22 Sonya Kessler, 1.2.840.1 [id number] Univers 00:00:00 00:00:00 Only [place]apphire 41953.1.1 ity of 3.412.2.7 [place] .3.380005 MD Johnston8 [facility] 2022-06-17 2022-06-17 Outpatient SANA KESSLER MDA MDA [id number] 11:46:51 11:56:56 SAPPHIRE herbert 2022-05-30 2022-05-30 [facility] Dane Uribe 1.2.840.1 [id number] Univers 00:00:00 00:00:00 Only 20710.1.1 ity of 3.412.2.7 [place] .3.843051 MD Johnston8 [facility] 2022-05-19 2022-05-19 Dane Blair 1.2.840.1 [id number] Univers 00:00:00 00:00:00 Only 93914.1.1 ity of 3.412.2.7 [place] .3.505161 MD Johnston8 [facility] 2022-05-19 2022-05-19 Carolee Gerber 1.2.840.1 [id number] Univers 00:00:00 00:00:00 Héctor 42729.1.1 ity of 3.412.2.7 [place] .3.945430 MD Johnston8 [facility] 2022-05-13 2022-05-13 Outpatient DANE CHERRY MDA MDA [id number] 12:30:32 23:59:00 Bruce herbert 2022-05-13 2022-05-13 [facility] Dane Uribe 1.2.840.1 [id number] Univers 12:30:32 23:59:00 Encounter 78859.1.1 it y of 3.412.2.7 [place] .3.622966 MD Johnston8 [facility] 2022-05-13 2022-05-13 [facility] [place], 1.2.840.1 [id number] Univers 14:30:00 14:30:00 ne [place]apphire 11390.1.1 ity of 3.412.2.7 [place] .3.261998 MD Johnston8 [facility] 2022-05-13 2022-05-13 Follow-Up Dane Uribe 1.2.840.1 [id number] [facility] 11:30:00 12:35:55 63104.1.1 ity of 3.412.2.7 [place] .3.303456 MD Johnston8 [facility] 2022-05-13 2022-05-13 Outpatient DANE CHERRY [facility] MDA [id number] [place] 11:22:00 12:35:55 Bruce [facility] 2022-05-13 2022-05-13 Outpatient CHECO [facility] MDA [id number] MD 07:00:00 12:29:00 SAPPHIRE herbert 2022-05-13 2022-05-13 [facility] 1.2.840.1 [id number] [facility] 07:00:00 12:29:00 Encounter Sapphire 72848.1.1 it y of 3.412.2.7 [place] .3.497545 MD [facility] 2022-05-13 2022-05-13 Outpatient CHECO [facility] MDA [id number] MD 11:17:17 11:20:13 SAPPHIRE herbert 2022-05-13 2022-05-13 Travel 1.2.840.1 1.2.893.711 [id number] [facility] 00:00:00 00:00:00 35526.1.1 350.1.13.41 ity of 3.412.2.7 2.2.7.3.698 [place] .3.103421 084.8 MD Johnston8 [facility] 2022-05-13 2022-05-13 [facility] [place], 1.2.840.1 [id number] Univers 00:00:00 00:00:00 Only Sapphire 19404.1.1 ity of 3.412.2.7 [place] .3.901867 .8 [facility] 2022-03-10 2022-03-10 Temple Marcoana cristina, 1.2.840.1 [id number] Univers 00:00:00 00:00:00 Fatemeh A 50280.1.1 it y of 3.412.2.7 [place] .3.483716 MD Johnston8 [facility] 2022-03-09 2022-03-09 Outpatient SANA KESSLER [facility] [id number] MD 14:58:36 14:58:46 SAPPHIRE Bruce [facility] 2022-03-09 2022-03-09 Telemedic [place], 1.2.840.1 [id number] [facility] 14:30:00 14:58:46 ne Sapphire 34339.1.1 ity of 3.412.2.7 [place] .3.913825 MD Johnston8 [facility] 2022-03-07 2022-03-07 Follow-Up Ken 1.2.840.1 [id number] [facility] 13:20:00 14:32:52 Joseph 03982.1.1 ity of 3.412.2.7 [place] .3.966540 MD Johnston8 [facility] 2022-03-07 2022-03-07 Outpatient SANA SOTO [facility] MDA [id number] MD 13:04:57 14:32:52 JOSEPH Barrera piedad 2022-03-07 2022-03-07 Outpatient SANA CHECOSTEPHIE [facility] [id number] MD 12:14:02 12:54:12 SAPPHIRE Brucemelissa herbert 2022-03-07 2022-03-07 Travel 1.2.840.1 1.2.454.640 [id number] [facility] 00:00:00 00:00:00 91716.1.1 350.1.13.41 ity of 3.412.2.7 2.[place].7.3.698 [place] .3.769066 084.8 .8 [facility] 2022-01-14 2022-01-14 Outpatient SANA KESSLERSTEPHIE MDA [id number] 12:58:01 12:58:08 SAPPHIRE Brucemelissa herbert 2022-01-14 2022-01-14 [facility] [place], 1.2.840.1 [id number] Univers 09:30:00 12:58:08 ne [place]hire 04551.1.1 ity of 3.412.2.7 [place] .3.506513 .8 [facility] 2022-01-14 2022-01-14 [facility] [place], 1.2.840.1 [id number] Univers 00:00:00 00:00:00 Only Sapphire 86745.1.1 ity of 3.412.2.7 [place] .3.545806 .8 [facility] 2022-01-12 2022-01-12 [facility] [place], 1.2.840.1 [id number] Univers 00:00:00 00:00:00 Only [place]hire 91257.1.1 ity of 3.412.2.7 [place] .3.082444 MD Johnston8 [facility] 2022-01-11 2022-01-11 Outpatient SANA CHECOSTEPHIE MDA [id number] 11:15:00 23:59:00 SAPPHIRE Brucemelissa herbert 2022-01-11 2022-01-11 [facility] [place], 1.2.840.1 [id number] [facility] 11:15:00 23:59:00 Encounter Sapphire 79119.1.1 it y of 3.412.2.7 [place] .3.450956 MD Johnston8 [facility] 2022-01-11 2022-01-11 Outpatient SANA TOMAS MDA MDA [id number] 10:00:00 11:14:00 LAUREN herbert 2022-01-11 2022-01-11 [facility], 1.2.840.1 [id number] Univers 10:00:00 11:14:00 Encounter Lauren 82726.1.1 it y of 3.412.2.7 [place] .3.000252 MD [facility] 2022-01-11 2022-01-11 Travel 1.2.840.1 1.2.763.297 [id number] Univers 00:00:00 00:00:00 48933.1.1 350.1.13.41 ity of 3.412.2.7 2.2.7.3.698 [place] .3.393804 084.8 MD [facility] 2022-01-11 2022-01-11 Orders [place], 1.2.840.1 [id number] Univers 00:00:00 00:00:00 Only Sapphire 53574.1.1 ity of 3.412.2.7 [place] .3.162528 MD [facility] 2021-12-15 2021-12-15 Infusion [place] 1.2.840.1 [id number] Univers 10:30:00 15:20:30 Sapphire 40309.1.1 ity of 3.412.2.7 [place] .3.054748 MD [facility] 2021-12-15 2021-12-15 Outpatient SANA KESSLER [facility] [id number] 10:21:58 15:20:30 SAPPHIRE Barrera [facility] 2021-12-15 2021-12-15 Travel 1.2.840.1 1.2.793.675 [id number] Univers 00:00:00 00:00:00 78108.1.1 350.1.13.41 ity of 3.412.2.7 2.2.7.3.698 [place] .3.709974 [id number] MD [facility] 2021-12-08 2021-12-08 Infusion [place] 1.2.840.1 [id number] Univers 10:45:00 13:55:28 Sapphire 72174.1.1 ity of 3.412.2.7 [place] .3.736678 MD Johnston8 [facility] 2021-12-08 2021-12-08 Outpatient SANA KESSLER STEPHIE MDA [id number] MD 10:17:39 13:55:28 SAPPHIRE herbert 2021-12-08 2021-12-08 Ancillary Uribe, Prestondoni 1.2.840.1 [id number] [facility] 09:15:00 10:15:00 Procedure 02004.1.1 it y of 3.412.2.7 [place] .3.243858 MD Johnston8 [facility] 2021-12-08 2021-12-08 Outpatient SANA JOJO NELABOBO [facility] MDA [id number] 09:14:11 09:14:11 Bruce piedad 2021-12-08 2021-12-08 Travel 1.2.840.1 1.2.761.754 [id number] [facility] 00:00:00 00:00:00 40939.1.1 350.1.13.41 ity of 3.412.2.7 2.2.7.3.698 [place] .3.037213 084.8 MD Johnston8 [facility] 2021-11-30 2021-11-30 Sonya Kessler, 1.2.840.1 [id number] Univers 00:00:00 00:00:00 Only Sapphire 47016.1.1 ity of 3.412.2.7 [place] .3.126717 MD [facility] 2021-11-24 2021-11-24 Outpatient SANA KESSLER STEPHIE MDA [id number] MD 14:10:02 14:12:17 SAPPHIRE herbert 2021-11-24 2021-11-24 Telemedicedmundo Kessler, 1.2.840.1 [id number] Univers 14:00:00 14:12:17 ne Sapphire 21554.1.1 ity of 3.412.2.7 [place] .3.285795 MD Johnston8 [facility] 2021-11-24 2021-11-24 Ancillary Genoveva, 1.2.840.1 [id number] [facility] 03:25:00 03:30:00 Procedure Lauren 35899.1.1 it y of 3.412.2.7 [place] .3.435582 MD Johnston8 [facility] 2021-11-24 2021-11-24 Outpatient SANA TOMAS MDA MDA [id number] [place] 03:21:40 03:21:40 LAUREN [facility] 2021-11-24 2021-11-24 Orders [place], 1.2.840.1 [id number] 00:00:00 00:00:00 Only [place] 04364.1.1 ity of 3.412.2.7 [place] .3.522719 .8 [facility] 2021-11-19 2021-11-19 Outpatient [facility] MDA MDA [id number] 09:59:39 23:59:00 [facility] 2021-11-19 2021-11-19 [facility] 1.2.840.1 [id number] [facility] [facility] [place] 09:59:39 23:59:00 Encounter 24168.1.1 it y of 3.412.2.7 [place] .3.637391 .8 [facility] 2021-11-19 2021-11-19 Outpatient [facility] MDA MDA [id number] 13:01:34 14:26:50 [facility] 2021-11-19 2021-11-19 [facility] 1.2.840.1 [id number] [facility] [place] 13:00:00 14:26:50 Visit 75954.1.1 ity of 3.412.2.7 [place] .3.620703 .8 [facility] 2021-11-19 2021-11-19 Outpatient [facility] MDA MDA [id number] 12:33:32 12:33:32 [facility] 2021-11-19 2021-11-19 [facility] 1.2.840.1 [id number] Univers 11:40:00 12:00:00 Procedure 88834.1.1 it y of 3.412.2.7 [place] .3.120870 MD [facility] 2021-11-19 2021-11-19 Outpatient SANA KESSLER [facility] [id number] 09:30:00 09:58:00 SAPPHIRE Brucemelissa herbert 2021-11-19 2021-11-19 [facility] [place], 1.2.840.1 [id number] Univers 09:30:00 09:58:00 Encounter [place] 18349.1.1 it y of 3.412.2.7 [place] .3.506730 MD [place]8 [facility] 2021-11-19 2021-11-19 Travel 1.2.840.1 1.2.893.474 [id number] Univers 00:00:00 00:00:00 68437.1.1 350.1.13.41 ity of 3.412.2.7 [place].698 [place].6156[place] 084.8 MD Johnston8 [facility] 2021-09-29 2021-09-29 Outpatient SANA POWELL [facility] [id number] MD 10:54:20 23:59:00 GERARDO herbert 2021-09-29 2021-09-29 [facility] Jer, 1.2.840.1 [id number] Univers 10:54:20 23:59:00 Encounter Gerardo 65922.1.1 it y of 3.412.2.7 [place] .3.340181 MD Johnston8 [facility] 2021-09-29 2021-09-29 Follow-Up Gerardo Powell 1.2.840.1 [id number] Univers 11:30:00 12:26:09 Sujey Hobson 06060.1.1 ity of 3.412.2.7 [place] .3.288109 MD Johnston8 [facility] 2021-09-29 2021-09-29 Travel 1.2.840.1 1.2.261.392 [id number] Univers 00:00:00 00:00:00 70832.1.1 350.1.13.41 ity of 3.412.2.[place].3.698 [place].2717[place] 084.8 MD [facility] 2021-09-01 2021-09-01 Orders Powell, 1.2.840.1 [id number] Univers 00:00:00 00:00:00 Only Hasana 51877.1.1 ity of 3.412.2.7 [place] .3.398013 MD [facility] 2021-08-27 2021-08-27 Refill Powell, 1.2.840.1 [id number] Univers 00:00:00 00:00:00 Hasana 27404.1.1 ity of 3.412.2.7 [place] .3.897359 MD [facility] 2021-08-20 2021-08-20 Telemedici [place], 1.2.840.1 [id number] Univers 13:45:00 14:50:45 ne [place] 39619.1.1 ity of 3.412.2.7 [place] .3.377247 MD [facility] 2021-08-20 2021-08-20 Sonya Kessler, 1.2.840.1 [id number] Univers 00:00:00 00:00:00 Only [place] 09428.1.1 ity of 3.412.2.7 [place] .3.765937 MD [facility] 2021-08-20 2021-08-20 Travel 1.2.840.1 1.2.459.724 [id number] Univers 00:00:00 00:00:00 56088.1.1 350.1.13.41 ity of 3.412.2.7 [place].3.698 [place]3.4337[place] 08Herbert [facility] 2021-08-02 2021-08-02 Infusion [place], 1.2.840.1 [id number] Univers 10:30:00 15:29:58 [place] 69147.1.1 ity of 3.412.2.7 [place] .3.918404 MD [facility] 2021-08-02 2021-08-02 Outpatient SANA KESSLER [facility] [id number] 10:29:51 15:29:58 SAPPHIRE herbert 2021-08-02 2021-08-02 Travel 1.2.840.1 1.2.117.754 [id number] Univers 00:00:00 00:00:00 54995.1.1 350.1.13.41 ity of 3.412.2.7 [place].3.698 [place]3.273400 084.8 MD [facility] 2021-07-29 2021-07-29 [facility] [place], 1.2.840.1 [id number] Univers 09:31:00 13:53:00 Encounter Jd Perry 47903.1.1 ity of 3.412.2.7 [place] .3.866048 [facility] 2021-07-29 2021-07-29 Outpatient SANA GARCIA MDA Conchita/Hep/Nu [id number] MD 09:31:00 13:53:00 JD herbert 2021-07-29 2021-07-29 Anesthesia Maximiliano, 1.2.840.1 [id number] Univers 12:08:00 12:39:00 Event Romel Vera 44884.1.1 it y of 3.412.2.7 [place] .3.652763 [facility] 2021-07-29 2021-07-29 Surgery [place], 1.2.840.1 [id number] Univers 10:40:00 11:10:00 dJ Perry 27886.1.1 i ty of 3.412.2.7 [place] .3.513990 MD [facility] 2021-07-29 2021-07-29 Travel 1.2.840.1 1.2.542.088 [id number] [id number] Univers 00:00:00 00:00:00 55009.1.1 350.1.13.41 ity of 3.412.2.7 [place].3.698 [place]3.057587 084.8 MD Johnston8 [facility] 2021-07-28 2021-07-28 Tamica Sanon 1.2.840.1 [id number] Univers 16:30:00 17:00:00 Appointarmin Prescott 99599.1.1 i ty of ts 3.412.2.7 [place] .3.606253 MD Johnston8 [facility] 2021-07-28 2021-07-28 Anesthesia Melissa 1.2.840.1 [id number] Univers 09:27:21 09:27:21 Event Vanessa Mendoza 92633.1.1 ity of 3.412.2.7 [place] .3.689020 MD Johnston8 [facility] 2021-07-28 2021-07-28 Outpatient TAMICA PORTILLO MDA MDA [id number] 09:16:39 09:16:39 [facility] 2021-07-28 2021-07-28 Sonya Kessler 1.2.840.1 [id number] Univers 00:00:00 00:00:00 Only [place] 23781.1.1 ity of 3.412.2.7 [place] .3.595630 MD [facility] 2021-07-27 2021-07-27 Clinical Tamica Potter 1.2.840.1 [id number] Univers 11:00:00 11:17:01 Support Summer Granados 27782.1.1 ity of 3.412.2.7 [place] .3.811002 MD [facility] 2021-07-27 2021-07-27 Outpatient TAMICA PORTILLO MDA MDA [id number] 10:47:50 11:17:01 Bruce o 2021-07-27 2021-07-27 Travel 1.2.840.1 1.2.963.875 [id number] [id number] Univers 00:00:00 00:00:00 01113.1.1 350.1.13.41 ity of 3.412.2.[place].3.698 [place]3.8027[place] 084.8 MD Johnston8 [facility] 2021-07-19 2021-07-19 Outpatient SANA KESSLER [facility] MDA [id number] [place] 11:00:58 15:29:53 [facility] 2021-07-19 2021-07-19 Infusion [place], 1.2.840.1 [id number] [facility] [place] 11:00:00 15:29:53 [place] 24071.1.1 ity of 3.412.2.7 [place] .3.504374 MD Johnston8 [facility] 2021-07-19 2021-07-19 Travel 1.2.840.1 1.2.444.485 [id number] [facility] [place] 00:00:00 00:00:00 55600.1.1 350.1.13.41 ity of 3.412.2.7 [place].3.698 [place]3.841099 084.8 MD Johnston8 [facility] 2021-07-12 2021-07-12 Outpatient SANA KESSLER [facility] MDA [id number] MD 10:49:17 14:44:17 [facility] 2021-07-12 2021-07-12 Infusion [place], 1.2.840.1 [id number] [facility] [place] 10:45:00 14:44:17 [place] 75636.1.1 ity of 3.412.2.7 [place] .3.260467 MD Johnston8 [facility] 2021-07-12 2021-07-12 Travel 1.2.840.1 1.2.748.294 3665 [id number] Univers 00:00:00 00:00:00 50101.1.1 350.1.13.41 ity of 3.412.2.7 [place].3.698 [place] .3.353803 084.8 .8 [facility] 2021-07-07 2021-07-07 Outpatient SANA CHECO [facility] [id number] 16:36:28 16:36:34 SAPPHIRE herbert 2021-07-07 2021-07-07 Telemedicedmundo Kessler, 1.2.840.1 [id number] [facility] 16:30:00 16:36:34 ne [place] 37192.1.1 ity of 3.412.2.7 [place] .3.924557 MD Johnston8 [facility] 2021-07-07 2021-07-07 Sonya [place], 1.2.840.1 [id number] Univers 00:00:00 00:00:00 Only Saphpire 35340.1.1 ity of 3.412.2.7 [place] .3.159281 MD Johnston8 [facility] 2021-07-02 2021-07-02 Outpatient SANA KESSLER [facility] [id number] 12:26:33 12:37:28 SAPPHIRE herbert 2021-07-02 2021-07-02 Sharon Soto, 1.2.840.1 [id number] [facility] 11:00:00 12:24:54 Visit Joseph 67692.1.1 ity of 3.412.2.7 [place] .3.153828 MD Johnston8 [facility] 2021-07-02 2021-07-02 Outpatient SANA SOTO [facility] [id number] 10:57:54 12:24:54 JOSEPHJONATHAN combs piedad 2021-07-02 2021-07-02 Sonya Kessler, 1.2.840.1 [id number] Univers 00:00:00 00:00:00 Only [place] 13877.1.1 ity of 3.412.2.7 [place] .3.728778 MD Johnston8 [facility] 2021-07-02 2021-07-02 Travel 1.2.840.1 1.2.833.080 [id number] [id number] Univers 00:00:00 00:00:00 58339.1.1 350.1.13.41 ity of 3.412.2.7 [place].3.698 [place]3.339806 084.8 .8 Ovi herbert [facility] 2021-06-18 2021-06-18 Outpatient TAMICA PORTILLO MDA MDA [id number] MD 08:39:56 08:39:56 Bruce herbert 2021-05-28 2021-05-28 Outpatient SANA SMITH MDA MDA [id number] 10:30:00 23:59:00 AURELIA Veliz so n 2021-05-28 2021-05-28 Outpatient SANA SMITH MDA MDA [id number] 11:27:42 13:03:09 AURELIA Veliz so piedad 2021-05-28 2021-05-28 Outpatient SANA KESSLER MDA MDA [id number] 09:17:48 10:29:00 SAPPHIRE herbert 2021-05-28 2021-05-28 Outpatient SANA KESSLER MDA MDA [id number] 09:50:02 10:27:22 SAPPHIRE herbert 2021-03-16 2021-03-16 Outpatient SANA KESSLER MDA MDA [id number] 11:01:12 11:07:10 SAPPHIRE herbret 2021-03-15 2021-03-15 Outpatient [facility] [id number] [place] 00:00:00 00:00:00 YULY 335 Method i 2021-03-15 2021-03-15 Outpatient [facility] [id number] [place] 00:00:00 00:00:00 YULY 156 Method i 2021-03-10 2021-03-10 Outpatient SANA KESSLER MDA MDA [id number] 15:27:12 15:30:34 SAPPHIRE herbert 2021-03-01 2021-03-01 Outpatient SANA KESSLER MDA MDA [id number] 11:04:22 11:04:22 SAPPHIRE herbert 2021-02-17 2021-02-17 Outpatient SANA KESSLER MDA MDA [id number] 10:31:04 17:34:26 SAPPHIRE herbert 2021-02-12 2021-02-12 Outpatient SANA KESSLER, MDA MDA [id number] 12:18:38 12:18:46 SAPPHIRE Bruce o piedad 2021-02-12 2021-02-12 Outpatient SANA KESSLER, MDA MDA [id number] MD 09:47:59 09:48:17 SAPPHIRE De Leoners o piedad 2020-12-03 2020-12-03 Outpatient EL KELSEY, MDA MDA [id number] 13:00:41 23:59:00 BRIAN De Leoners o piedad 2020-12-03 2020-12-03 Outpatient SANA MENDEZ, MDA MDA [id number] MD 13:00:00 13:00:00 KI herbert 2020-12-03 2020-12-03 Outpatient SANA POWELL, MDA MDA [id number] 09:00:00 12:59:00 GERARDO Barrera o piedad 2020-11-30 2020-11-30 Outpatient TAMICA PORTILLO MDA MDA [id number] 11:10:17 11:46:36 Bruce o piedad 2020-11-03 2020-11-03 Outpatient SANA KESSLER, MDA MDA [id number] MD 10:25:06 10:25:13 SAPPHIRE herbert 2020-11-02 2020-11-02 Outpatient SANA KESSLER, MDA MDA [id number] MD 12:51:04 12:55:56 SAPPHIRE herbert 2020-10-27 2020-10-27 Outpatient SANA SMITH, MDA MDA [id number] 14:38:32 14:38:32 AURELIA Veliz so piedad 2020-10-27 2020-10-27 Outpatient SANA SMITH, MDA MDA [id number] MD 11:09:43 11:09:43 AURELIA De Leoner so n 2020-10-07 2020-10-07 Outpatient TAMICA PORTILLO MDA MDA [id number] 09:45:00 11:11:09 Bruce o piedad 2020-10-02 2020-10-02 Outpatient SANA KESSLER, MDA MDA [id number] MD 11:59:59 12:00:06 SAPPHIRE De Leoners o piedad 2020-09-30 2020-09-30 Outpatient SANA KESSLER MDA MDA [id number] 12:43:53 12:47:43 SAPPHIRE herbert 2020-09-30 2020-09-30 Outpatient TAMICA PORTILLO MDA MDA [id number] 10:55:55 10:55:55 Bruce herbert 2020-09-30 2020-09-30 Outpatient TAMICA PORTILLO MDA MDA [id number] 10:08:46 10:08:46 Bruce herbert 2020-09-23 2020-09-23 Outpatient [facility] [id number] [place] 00:00:00 00:00:00 YULY 456 Method i 2020-09-23 2020-09-23 Outpatient [facility] [id number] [place] 00:00:00 00:00:00 YULY 780 Method i 2020-06-15 2020-06-15 Outpatient SANA DE LA GARZA MDA MDA [id number] 00:00:00 00:00:00 KANDY herbert 2020-06-11 2020-06-11 Outpatient SANA FIGUEROA MDA MDA [id number] 12:16:14 12:16:14 JILLIAN herbert 2019-10-16 2019-10-16 Outpatient NATALI KNUTSON MDA Conchita/Hep/Nu [id number] 09:26:03 13:57:00 tanvir herbert 2019-10-16 2019-10-16 Outpatient SANA RUIZ MDA MDA [id number] 07:15:00 07:15:00 KERON herbert 2019-10-15 2019-10-15 Outpatient SANA OCHOA MDA MDA [id number] 07:23:29 07:23:29 DANELLE herbert 2019-10-14 2019-10-14 Outpatient SANA OCHOA MDA MDA [id number] 12:48:47 12:48:47 DANELLE pavonso R piedad Results Test Description Test Time Test Comments Results Result Comments Source Culture, Urine 2022-05-15 23:07:48 Test Item Value Reference Range Interpretation Comme nts Final Report (test code = 8488) <10,000 cfu/ml Normal site julissa A present.Generally of low significance.Correlate with clinical data and culture history. Path Review - Urine (test code = The results have been reviewed and A 8483) electronically signed by Pathologist:GAURAV DICKEY MD #[id number] Lab Interpretation (test code = Abnormal 50952-2) [facility] [id number] 19:39:19 Test Item Value Reference Range Interpretation Comments UA Color (test code = Colorless Straw-Yellow A 68329-2) UA Appear (test code Clear Clear = 69676-9) UA Glucose (test code NEG NEG mg/dL = 5792-7) UA Bili (test code = NEG NEG 5770-3) UA Ketones (test code NEG NEG mg/dL = 5797-6) UA Spec Grav (test 1.006 1.003-1.035 code = 5810-7) UA Blood (test code = NEG NEG 5794-3) UA pH (test code = 6.0 5.0-9.0 5803-2) UA Protein (test code NEG NEG mg/dL = 5804-0) UA Urobilinogen (test NEG NEG code = 5818-0) UA Nitrite (test code NEG NEG = 5802-4) UA Leuk Est (test NEG NEG code = 5799-2) UA Comment (test code See Comment No gerson roscopic exam = 16241-8) performed, physiochemical findings are ne gative Lab Interpretation Abnormal (test code = 63642-0) [facility] tkpin3580[facility]32 16:52:12 Test Item Value Reference Range Interpretation Comments Chol (test code = 181 mg/dL <=199 ATP III 2093-3) Classification of Total Cholester ol Primary Target of Therapy (in mg/dL):<200 Voaugrnjo501-60 9 Borderline high>=240 High Trig (test code = 97 mg/dL <=149 ATP III 2571-8) Classification of Serum Triglycer ides Primary Target of Therapy (in mg/dL):<150 Czjeis305-828 Borderline nqlm722-627 High>=500 Very highNon-fasting triglycerides > 200 mg/dL may be followed up wit h a fasting Lipid Panel. Calculat ed LDL-C may be falsely decreas ed when non-fastin g triglycerides > 200 mg/dL. HDL (test code = 59 mg/dL >=40 5-9) LDL (test code = 103 mg/dL <=100 H ATP III 84750-6) Classification of LDL Cholesterol Primary Target of Therapy (in mg/dL):<100 Xvvrroh844-675 Near optimal/above iujlmwo167-484 Borderline gzow374-363 High>=190 Very high VLDL (test code = 19 mg/dL 00315-8) JONO (test code = Coordinate with JONO) cardio office visit Lab Interpretation Abnormal (test code = 38999-1) [facility] [place] [facility] Bi[facility] Interpretation 2021-08-02 15:50:00 Test Item Value Reference Range Interpretation Comments Submitted Clinical History s4bojYMtQKXiu4ujRZR (test code = 42251) mbGFuZzEwMzNcZnRuYm pcdWMxIHtccnRmMVxzc 0VpI1SwEgWtNKuphyXg XGRlZmxhbmcxMDMzXGZ 0bmJqXHVjMVxkZWZmMH qlGl7gwLSlbIxyAkHaW MTxm9cyfuOQeborsSu5 s8nlXXLdOwU0bZWmCQt yC4pfpcMezXZmQRBnOD b5oA97RBQgsW3qnOMjV KpudyVpSbX1OFpyMNAm ExW7IDXikKEvAARvV2r yZWQwXGdyZWVuMFxibH WzXZJ9nYwdx0O9xOYxp GVldHtcZjBcZnMyMiBO e5PlQRm0oOnjQ1OsTSH rEnU5cKGjAHHqFNhxPL UzCGBannL1xJ88EHtbl cY2nBHmp1Rgq67gg665 zF3gbVNiNPF2XILoXDS ilZRkDYCyVSA2YQNrzY WrR6zoTXVkYR5lcxpmD EcfIZuwRAKxmQN5VDWo vFRzT3BtGCPdMXfdCWV yyog6PwJxXf8suAPgpC zqEXmjh9tvj7iisUIyM ji3WUYkJePdUahtKLum v5Cyu9rwIHBnwp3rTZU 5vWGwjCedx8U2yIZjJE QrrIAsdvHoWRHeRcB8D BjuWP9iri32ZNMhGTV1 ct5ujGGuaDvphjRalWU kDBnkA0VbEPGmn626HV AqR9NlCJPuj9D5jrCbM dHdNQGftSB6pgT9QOHy FEh0mNMczaG0imSuiBX vO9ocpO4yQDTuPB2kgn rxp8amIRykISthZTHin IK2zxM8QGVjkMMcY4Bb jB5aYAUoSFosVDAfupi 4UsYdEj8dgRMcxQakUN xzYmtwYWdlXHBnbmNvb nRccGduZGVjXHBsYWlu XHBsYWluXGYwXGZzMjR mcUzrhRbqcA7fQqFcBn JsKOmuJV5vKJXlK2vfb UJySRSwYFHeN1wzNdGj pO2uyClgZGdouaAuJWD eAN4xNFrlfd23IZ81gN Dyj3sbILXveCOvoVEpN UIsM6U2LF22LRwmyPCo blxmMVxmczIyXGxhbmc kRTUwLHajT1daIhMpQV MmuLfqWCupo0RdDNAvC GZzMjJccGFyfX0= Diagnosis (test code = 34) s4deaYArRVWdjIU5QyQ lWVWju7qff1NkkYEesJ RgKSezrWMwwwDkni49i WQ3eM52JE2lAQCaRhD8 HXYazqF9Lto8QXXjPNT ynEEpG683n4oao8tehp CteUC0KCTxZZLbP2HhD T4nSNMgqEKcE87jhPRj KTU7OPLjAGNieQIvECK dZSW3XLYppMEhS2ffAI WfIR9aiebiMSpdNItuH HJseGQ4THHpmDKcB9Cx HSHoSQldKJGossj4TrE gSk1ykOAojJvoFVzrWR JkXHBsYWluXGZzMjBcY 8SoYTR0EPJ0g8StpdVh KMLbfY7zs5r2GURpcty ghEndCZqzsQ01MqBmD9 RfGGO8t1QccqCsQP88P 65hAJucdq9aGFhjY44p r0BeYsScIj2npv2nqJn 3qB9wmURmMObuWPfcuL 4wXHBhclxjZjEgQjogU 6HptPEfoVdsKR98mnDl AZBchZ6zu9a9HTOyxvx roJcfRKxhwA98KgMsV4 YwIEFudHJhbCBtdWNvc 7Rsm8f7wFBteJikHLyw NDE6bMDmLSXieo2ewXL hT1JarVZzmLsnRckfLF RqGh4tVPRjmIShUyAtw SHpSJ8iB4JmyKOvnqRs SKYUPHC5CMmcFIGizmW izaStg2AnzyGhGJ0whN FwbGFzaWEuXHBhclxwY XJ9 Gross Description (test w6lhyETfFBYcrTFANKa code = [id number]) wMVxhbnNpXHNwbHRwZ3 QoanaeAKobZV2iRF6eh JjztVKmeECgEI1EOVKd ZmYxXHBhcGVydzEyMjQ qHLVqcECzzDA2ULOpMB 1hcmdsMTgwMFxtYXJnc rU7IJUhoVBzS3HpAPBr HW9ribvaAIO2DHizeY3 hsiDHDwkyRo6rjOXdfW tcZjFcZmNoYXJzZXQwX IDtvBcpLGOeSSt7sI3F WkvzW87ch6Y2Rrv2EMS tZONcG1SfYU3gBHJnnE NdW31SZimqGLT9YRFEY xbmSNJeVA1Ac1uzDRJy uUDsLPN3DFmymXQvBWL vTBSrIKz9CUKjOQqliT UySK2aeScmNkkqoSaxe 2VjdCBcXGlkIDUxMDAy FXpeCZLjPL7OZeOiOAK iYWgbXkWcTMe2VJq8QQ 7IJbFpGDXbYDL6PExkN YChQDm1FTmkSL4FWUCo MjIyMjgyOTkgNTUzMTE aDEt4YZFzVRopSKAllK FsIFxcZnMgMTAgXFxmY bOrTPNhDKftntJ5YQDc YWluXGJcZnMyMCBBOlx jURPcBTlzzYhegE4qVF HuI38ds8GDi8XjCA0ER Sm5yqLecbhjfB1lEJKt naZxUPihcJZrX7kbIzq kDiYtBzShMLASuO0jNG 41dWlvXAGqIKItuH4fN GgvbyBkeXNwaGFnaWEs JPZuQB6zVCrhJiAtL2G wFJNZoGa1aWObBKF7ZG 2hNcXvz61fXdKpC09jy jJbYM6rBAUzVrSckPhs t9XzTL2wAWB0tclbPxT xLjAgeCAwLjMgeCAwLj FoM95ueC4rHTiickPmV XRlLCBlbnRpcmVseSBz pETpbOB5VKRdyN7kULS uICBccHJvdGVjdHtcZm icaDA3ITzlPtemgR0ie CBIWVBFUkxJTksgbmFt IW3MAZ2PEfWXWZ03YlO mSVM8QKzAK7WItMR6Xw u4WSe5kYxyKtviiiUei CHvLfAHmB6JMCgjCjqb wEM1NNeeWvjhwY9luQN IWVBFUkxJTksgbmFtZT 1JJI8MOT2AxLJkYRK2y LC4LXSQRdwguAU5qOQ9 dO87AMVuBTSdvZHjJJe iQ893AWHzSJjxWUy5ms NoXGZzMjAgDQpcZXBpY 74uq3CDb4RmFFVnx7gu fGncd0EepZFwZQbzSSX lnHMbDCkvvT0bCzWfv9 jvkPn0AZgtvxP6HMNvs p6nzAqkfO7lLKs2XJap OCAtX1YhV1PkKItpIIL 1MTAwMiBcXGRiICBPVl PfXnHJSyz0MIzeLkH3U Yg0JHIQApJyWgXeUODf Gil4RmTjSDd5TCh9XDy YMnIpFBMhQhZ8OUwkSF J8YtNeHPtdnPKiDIfcT iBBcmlhbCBcXGZzIDEw IFxcZmIgXFxmbCBcXG5 jfVxwbGFpblxiXGZzMj LrLcebiWLqMT4AUDPvG WkhFTAoeLBDFKT7EP6s MSANClxsdHJwYXJcbGl eSGuahA6dAH2ZLFt6xb NjQFLwW9DjCTTrXmUoZ 8XztIWjvBkfLE76qaZm OlxiMFxjZjAgIEZvdXI gdGFuLXllbGxvdyBmcm AxtGTghMJix1Cpo00sy RS8aUSieQDalwTnC0cu NzBkds9eSRDjKjJ1irK tRcXrU06vHFAmkCpeBQ j1PPF0Gt5jlTHhPJXtu jXDVW8iIQebqe18HAV9 m1defHPjYAwqKjrsgDT zmfY4QLcHNXSRSCeBAi DrTX4hLFrDBvzGDRjUP nwyMTAxNnwxfFVTRVJ8 VFyqiNshtVm9j0pbsHC nh5u8NPpjNBQ5qPuQn7 xmaWVsZHtcKlxmbGRpb pP7TApASXTZNOlXPpCi TS6eROmCDvtKMpR2ElA yFFO8JUxMA6ZCaAM6Ud y2AVg8oPyvLscwsmIze MGqXkTVuY2bvHpfoW4x rHYrY2xfBcKuJYPTPcx lcGljTmVzdERvYzBcdj V2WHJytAFaOPS0UZ5bX HBhclxwYXJkXHNsLTE2 KHgpqY21jDQkFBNwDMY ccGFyfVxwbGFpbiANCl gowV0mToXzf4tsiXu8M CANClxwbGFpblxmczE2 MFKap6pshHplj6XtmGS eYV3ipEwhtS0yYhSiAb ANCn0= Disclaimer (test code = [id number] [id number]) oFEIgBRGwk9ukYPFjyW FuZzEwMzNcZnRuYmpcd IUgGIGvQuXwb7zzg630 uUKfn7itUHFlFaD4gJI kZOPzbQBbB824OLFiSD yxi0ajw2YlEDDtiQFag 4V9ZUDLxvrkaVu2uEva B56oh0O9SkuzK1bdAPG cDMJnW6EwKS1xQIHkLe l7FJI0RYU1EWUzDDZsC 4VzWW7tPIUjvZQcJUe6 y3ervOaoGRUuCAK3r0s wZJtzyoKiLL2aso0kyS r5c7uoemAhWPBiDRDcx CNCFNAlW4GawPjmCd7m eTq6pKiaZnjhPRC7Uid 8SE9kvm33kut8uDywRO IhqawbUgR1ZCrnMJWvs ehjORz5SYtuMKUwrRN5 IWVycQNpO5AjTFPnJL9 wfjq9HYG3SZgdUKRhBy X0DJQgzKPaQCBbqFdmN Dlud488OWH7CiJhFX2e E6Fwq5X0tB1qxZMnDQW rrCHzFpVfFNBdtl4qqD JaQJcuo4VjUKO0qkM8r FIhfLGvRITfHV10Yopm g7EzGxsjSGX7LZMqgpE ny8Chs1xnDxZsoyQqC5 irQ7KoONTnHKAsNUMzE oZqpyPpl1Pgr9MwlSVo yBp2f4nvDNReNPHekLr yl5jkQJS7CAYuU1N9aT Ljz5jzFZhiSYIbsKQ1e dP6ZGPkqVSbM8GqnP3z DJGlBQ2ekef4z3qvESM 2IToqZUDrWvG8slM1ZU BcaGVhZGVyeTcyMFxmb 538KAQ2LzPkRFOun8Uh J3WhiRdhQ92tkBiiZ25 pPNDvdJounX8lxLozoW 5cZjBcZnMyNFxxbFxwb IJrlobtIPhlblH6LUfa bgofZNTzRYpuD0otDuA qVEObrKooVPedi2BfXT WlBJVvTpxdvaQ5KTSEs 46yDNAxg9OlXDPpoN0f zCSiJFdcadZxlFW9KPu hdmUgYmVlbiBkZXZlbG 4eVIRhMQ3kAAPbbmDtf m6jolQjGSFbHXDhD3Qe cmlzdGljcyBkZXRlcm1 bbjHxONY7GCGFAB7HMA AxTPWbs10cAAEioZnef U9vdUNmiyOrCEIuf4Ds sP7nmXCAJBZpP8muTP2 iJLxen0OhvWXzfJHhjA Q9XHMql8MnGsKrygZso LQqoYFlL5HqyWdjN0xw PMTeRLTpdzXwgNRhf8A wPWSbtLH0hLDdVL3SYv GAx34cNGZiEQQKamQoZ QCkpEaqrPV7ntE6tM4d LiBJZiBhcHBsaWNhYmx jDUEtr152hs5payZ9HA JnATImhkhhl7HrOHVhX QQogT52BYOqPPPujw0q xzffvFIolbGgS7Cxzmu 1lJ8kIOHqMVdmXEHvHF ZzMjJcbGFuZzEwMzNca GljaFxmMVxkYmNoXGYx MXevX5beRxRbHfDvRqw wYXJ9 [facility]EL-CoV-2[facility] [id number] 11:15:33 Test Item Value Reference Interpretation Comments Range COVID19 SARS Pre-Out of OR Procedure Indication (test code = 59618) COVID19 SARS Result Not Detected Not Detected (test code = 00497-9) COVID19 SARS SARS-CoV-2 NOT Detected. Interpretation (test Reference Range: Not code = 77138) Detected Methodology: The [employer] RealTime SARS-CoV-2 assay is a qualitative real-time reverse bag filler machine operator polymerase chain reaction (installer inspector final-PCR) test to detect RNA from SARS-CoV-2 in nasal, nasopharyngeal and oropharyngeal swabs from patients with signs and symptoms of infection who are suspected of COVID-19 by their health care provider. The [employer] RealTime SARS-CoV-2 performed on the [employer] System is a dual target assay with primers and probes for the RdRp and N genes. Results must be interpreted within the context of all relevant clinical and laboratory findings, and epidemiological risk factors. Positive results are indicative of the presence of SARS-CoV-2 RNA; clinical correlation with patient history and other diagnostic information is necessary to determine patient infection status. Positive results do not rule out bacterial infection or co-infection with other viruses. Negative results do not preclude SARS-CoV-2 infection and should not be used as the sole basis for patient management decisions. The [employer] RealTime SARS-CoV-2 assay is for in vitro diagnostic use under FDA Emergency Use Authorization only. Testing is limited to laboratories certified under the Clinical Laboratory Improvement Amendments of 1988 (CLIA), 42U.S.C. 263a, to perform high complexity tests. The Test was performed by the CLIA-certified, high-complexity [facility] ([facility]) at [facility] under the Food and Drug Administration (FDA) s Emergency Use Authorization. Factsheet for patients: https://www.[facility].org/ AbbottFactSheetPatientsFact sheet for healthcare providers: https://www.[facility].org/ AbbottFactSheetHCP Test performed by:[facility] [id number] [place] [address] [facility]
[2022-06-30] MEDS ORDERED: KETOROLAC 30 MG/ML INJ ONE (12:25)
--- NOTE | 2022-06-30 13:05 | RAD REPORT ---
EXAM DESCRIPTION: RAD - Shoulder Right 2 View - 06/30/2022 12:58 pm CLINICAL HISTORY: PAIN COMPARISON: No comparisons FINDINGS/IMPRESSION: No acute fracture. No malalignment. Mild right AC joint and glenohumeral joint degenerative changes. Surgical clips in the right axilla.
--- NOTE | 2022-06-30 13:06 | RAD REPORT ---
EXAM DESCRIPTION: RAD - Humerus Right - 06/30/2022 12:58 pm CLINICAL HISTORY: PAIN COMPARISON: No comparisons FINDINGS/IMPRESSION: No acute fracture. No malalignment. No significant focal degenerative changes.
--- NOTE | 2022-06-30 13:07 | RAD REPORT ---
EXAM DESCRIPTION: RAD - Foot Left 3 View - 06/30/2022 12:58 pm CLINICAL HISTORY: PAIN COMPARISON: No comparisons FINDINGS/IMPRESSION: No acute fracture. No malalignment. Plantar aspect and dorsal aspect calcaneal spurring.
--- NOTE | 2022-06-30 13:08 | RAD REPORT ---
EXAM DESCRIPTION: RAD - Knee Left 3 View - 06/30/2022 12:58 pm CLINICAL HISTORY: PAIN COMPARISON: Knee Left 2 View dated 01/03/2018; Knee Left 3 View dated 06/30/2017 FINDINGS/IMPRESSION: No acute fracture. No malalignment. No significant focal degenerative changes. Intact left knee arthroplasty.
--- NOTE | 2022-06-30 13:40 | ER ---
Nurse's Notes [facility] Name: Gifty Loomis Age: 71 yrs Sex: Female : 1950 Arrival Date: 06/30/2022 Time: 11:44 Bed 9 Private MD: Diagnosis: Contusion of left knee;Other sprain of right shoulder joint Presentation: 06/30 12:15 Chief complaint: Patient states: "I fell yesterday and my left knee hurts". Pt reports aa5 hx of left knee replacement. Coronavirus screen: At this time, the client does not indicate any symptoms associated with coronavirus-19. Ebola Screen: Patient denies travel to an Ebola-affected area in the 21 days before illness onset. Initial Sepsis Screen: Does the patient meet any 2 criteria? No. Patient's initial sepsis screen is negative. Does the patient have a suspected source of infection? No. Patient's initial sepsis screen is negative. Risk Assessment: Do you want to hurt yourself or someone else? Patient reports no desire to harm self or others. Onset of symptoms was June 2022. 12:15 Acuity: CELIA 4 aa5 12:15 Method Of Arrival: Ambulatory aa5 Historical: - Allergies: 12:16 tramadol (Upset stomach); aa5 - PMHx: 12:16 Breast Cancer; aa5 - PSHx: 12:16 Left knee replacement; hysterectomy; bladder repair; Cholecystectomy; ectopic aa5 sx; - Immunization history:: Adult Immunizations up to date. - Social history:: Smoking status: unknown. Screenin:30 [facility] ED Fall Risk Assessment (Adult) Score/Fall Risk Level 3 or more points = High eh3 Risk Oriented to surroundings, Maintained a safe environment, Educated pt \\T\\ family on fall prevention, incl call for assistance when getting out of bed, Assessed \\T\\ reinforced patient's understanding of fall precautions, Provided non-skid footwear, Hourly rounding (assess needs \\T\\ fall precautionary measures) done. Abuse screen: Denies threats or abuse. Denies injuries from another. Nutritional screening: No deficits noted. Tuberculosis screening: No symptoms or risk factors identified. Assessment: 12:30 General: Appears in no apparent distress. uncomfortable, Behavior is calm, cooperative, eh3 appropriate for age. Pain: Complains of pain in left knee. Neuro: Level of Consciousness is awake, alert, obeys commands, Oriented to person, place, time, situation. Cardiovascular: Capillary refill < 3 seconds Patient's skin is warm and dry. Respiratory: Airway is patent Respiratory effort is even, unlabored, Respiratory pattern is regular, symmetrical. GI: No signs and/or symptoms were reported involving the gastrointestinal system. Abdomen is round non-distended. : No signs and/or symptoms were reported regarding the genitourinary system. EENT: No signs and/or symptoms were reported regarding the EENT system. Derm: No signs and/or symptoms reported regarding the dermatologic system. Skin is pink, warm \\T\\ dry. Musculoskeletal: Circulation, motion, and sensation intact. Range of motion: limited in left knee. 13:30 Reassessment: Patient appears in no apparent distress at this time. Patient and/or eh3 family updated on plan of care and expected duration. Pain level reassessed. Patient is alert, oriented x 3, equal unlabored respirations, skin warm/dry/pink. Patient states symptoms have improved. Vital Signs: 12:15 BP 120 / 68; Pulse 78; Resp 16 S; Temp 98.3(TE); Pulse Ox 98% on R/A; Weight 85.28 kg aa5 (R); Height 5 ft. 1 in. ; 13:30 BP 139 / 68; Pulse 75; Resp 16; Pulse Ox 98% on R/A; eh3 12:15 Body Mass Index 35.52 (85.28 kg, 154.94 cm) aa5 ED Course: 11:44 Patient arrived in ED. am2 11:45 Tracy Lackey [facility]NP [facility] jh7 11:45 Alexander Ochoa MD is Attending Physician. 7 12:15 Arm band placed on. aa5 12:16 Triage completed. aa5 12:18 Keerthi Zhang, JAGJIT is Primary Nurse. eh3 12:30 Patient has correct armband on for positive identification. Bed in low position. Call 3 light in reach. Side rails up X2. Pulse ox on. NIBP on. Door closed. Noise minimized. 13:00 XRAY Knee LEFT 3 view In Process Unspecified. EDMS 13:00 XRAY Shoulder RIGHT 2 view In Process Unspecified. EDMS 13:00 XRAY Humerus RIGHT In Process Unspecified. EDMS 13:00 XRAY Foot LEFT 3 View In Process Unspecified. EDMS 13:48 No provider procedures requiring assistance completed. IV discontinued, intact, 3 bleeding controlled, No redness/swelling at site. Pressure dressing applied. Administered Medications: 12:30 Drug: Ketorolac IM 30 mg Route: IM; Site: left deltoid; 3 13:47 Follow up: Response: Pain is decreased 3 13:47 Drug: HYDROcodone-acetaminophen PO 5 mg-325 mg 1 tabs Route: PO; eh3 14:00 Follow up: Response: No adverse reaction 3 Medication: 13:48 VIS not applicable for this client. 3 Outcome: 13:40 Discharge ordered by . 7 13:48 Discharged to home ambulatory. 3 13:48 Condition: stable 13:48 Discharge instructions given to patient, Instructed on discharge instructions, follow up and referral plans. medication usage, Demonstrated understanding of instructions, follow-up care, medications, Prescriptions given X 2. 14:01 Patient left the ED. 3 Signatures: Dispatcher [employer] EDMS Natacha Waddell, RN RN aa5 Shawna Ramos Erin, RN RN eh3 Tracy Lackey, FUSING MACHINE OPERATOR FUSING MACHINE OPERATOR 7 Corrections: (The following items were deleted from the chart) 12:17 12:16 Allergies: No Known Allergies; martín resendiz
--- NOTE | 2022-06-30 13:40 | EDPHYS ---
Physician Documentation [facility] Name: Gifty Loomis Age: 71 yrs Sex: Female : 1950 Arrival Date: 06/30/2022 Time: 11:44 Bed 9 Private MD: ED Physician Alexander Ochoa HPI: 06/30 12:10 This 71 yrs old Female presents to ER via Ambulatory with complaints of Fall Injury, jh7 Knee Pain. 12:10 Details of fall: The patient fell from an upright position, while walking. Onset: The jh7 symptoms/episode began/occurred yesterday. Associated injuries: The patient sustained left knee, painful injury, right shoulder, painful injury. 71-year-old female reports that yesterday she was at her bathroom and that her left foot got caught on the scale. States that she slipped and fell injuring her left knee and right shoulder. Reports prior knee replacement and wants to ensure that her hardware is intact. History of breast cancer in remission and hypothyroid. Able to ambulate but reports some pain with weightbearing.. Historical: - Allergies: 12:16 tramadol (Upset stomach); aa5 - PMHx: 12:16 Breast Cancer; aa5 - PSHx: 12:16 Left knee replacement; hysterectomy; bladder repair; Cholecystectomy; ectopic aa5 sx; - Immunization history:: Adult Immunizations up to date. - Social history:: Smoking status: unknown. ROS: 12:10 Constitutional: Negative for fever, chills, and weight loss, Eyes: Negative for injury, jh7 pain, redness, and discharge, Neck: Negative for injury, pain, and swelling, Cardiovascular: Negative for chest pain, palpitations, and edema, Respiratory: Negative for shortness of breath, cough, wheezing, and pleuritic chest pain, Abdomen/GI: Negative for abdominal pain, nausea, vomiting, diarrhea, and constipation, Back: Negative for injury and pain, Neuro: Negative for headache, weakness, numbness, tingling, and seizure. 12:10 MS/extremity: Positive for pain, of the left knee, R shoulder. 12:10 All other systems are negative. Exam: 12:10 Constitutional: This is a well developed, well nourished patient who is awake, alert, jh7 and in no acute distress. Head/Face: Normocephalic, atraumatic. Eyes: Pupils equal round and reactive to light, extra-ocular motions intact. Lids and lashes normal. Conjunctiva and sclera are non-icteric and not injected. Cornea within normal limits. Periorbital areas with no swelling, redness, or edema. Neck: Trachea midline, no thyromegaly or masses palpated, and no cervical lymphadenopathy. Supple, full range of motion without nuchal rigidity, or vertebral point tenderness. No Meningismus. Cardiovascular: Regular rate and rhythm with a normal S1 and S2. No gallops, murmurs, or rubs. Normal PMI, no JVD. No pulse deficits. Respiratory: Lungs have equal breath sounds bilaterally, clear to auscultation and percussion. No rales, rhonchi or wheezes noted. No increased work of breathing, no retractions or nasal flaring. Back: No spinal tenderness. No costovertebral tenderness. Full range of motion. Skin: Warm, dry with normal turgor. Normal color with no rashes, no lesions, and no evidence of cellulitis. Neuro: Awake and alert, GCS 15, oriented to person, place, time, andMotor strength 5/5 in all extremities. Sensory grossly intact. Antalgic gait. 12:10 Musculoskeletal/extremity: ROM: full active range of motion, in the left knee, R shoulder, limited active range of motion due to pain, in the left knee, right shoulder, L knee: Full range of motion, no swelling or tenderness to palpation, diffuse knee pain with ambulation. R shoulder: Full ROM, no swelling or tenderness to palpation, mild pain with abduction greater than 90 degrees, Circulation is intact in all extremities. Sensation intact. Vital Signs: 12:15 BP 120 / 68; Pulse 78; Resp 16 S; Temp 98.3(TE); Pulse Ox 98% on R/A; Weight 85.28 kg aa5 (R); Height 5 ft. 1 in. ; 13:30 BP 139 / 68; Pulse 75; Resp 16; Pulse Ox 98% on R/A; eh3 12:15 Body Mass Index 35.52 (85.28 kg, 154.94 cm) aa5 MDM: 11:45 Patient medically screened. [facility] 13:55 Differential diagnosis: contusion, fracture, sprain, strain. Data reviewed: vital [facility] signs, nurses notes, radiologic studies, plain films. I considered the following discharge prescriptions or medication management in the emergency department Medications were administered in the Emergency Department. See MAR. Counseling: I had a detailed discussion with the patient and/or guardian regarding: the historical points, exam findings, and any diagnostic results supporting the discharge/admit diagnosis, to return to the emergency department if symptoms worsen or persist or if there are any questions or concerns that arise at home. ED course: Reviewed negative imaging with the patient. She remained hemodynamically stable throughout the ER visit. She requested a steroid pack for pain due to her PCP advising her not to take naproxen. Advised her to ice and elevate her knee at home and to follow-up with her orthopedic surgeon if she has continued symptoms.. 06/30 11:55 Order name: XRAY Knee LEFT 3 view; Complete Time: 13: [facility] 06/30 11:55 Order name: XRAY Shoulder RIGHT 2 view; Complete Time: : [facility] 06/30 11:55 Order name: XRAY Humerus RIGHT; Complete Time: : [facility] 06/30 12:12 Order name: XRAY Foot LEFT 3 View; Complete Time: 13:23 ss Administered Medications: 12:30 Drug: Ketorolac IM 30 mg Route: IM; Site: left deltoid; 3 13:47 Follow up: Response: Pain is decreased 3 13:47 Drug: HYDROcodone-acetaminophen PO 5 mg-325 mg 1 tabs Route: PO; eh3 14:00 Follow up: Response: No adverse reaction 3 Disposition: 14:32 I reviewed the patient's care provided by the Advanced Practice Provider and agree with jrGodwin the diagnosis and treatment plan. Disposition Summary: 06/30/22 13:40 Discharge Ordered Location: Home [facility] Problem: new [facility] Symptoms: are unchanged [facility] Condition: Stable [facility] Diagnosis - Contusion of left knee jh7 - Other sprain of right shoulder joint [facility] Followup: [facility] - With: Private Physician - When: 2 - 3 days - Reason: Recheck today's complaints Discharge Instructions: - Discharge Summary Sheet 7 - Contusion jh7 - Knee Sprain, Adult jh7 - Shoulder Sprain [facility] Forms: - Medication Reconciliation Form [facility] - Thank You Letter [facility] Prescriptions: - Zanaflex 4 mg Oral Tablet - take 1 tablet by ORAL route every 8 hours As needed; 20 tablet; Refills: 0, jh7 Product Selection Permitted - Medrol (Reuben) 4 mg Oral Tablets, Dose Pack - take 1 tablet by ORAL route as directed - follow package instructions; 1 jh7 packet; Refills: 0, Product Selection Permitted Signatures: Dispatcher [employer] Natacha Fofana RN RN aa5 Alexander Ochoa MD MD [id number] Keerthi Zhang RN RN 3 Tracy Lackey, WOOD CAULKER [facility]7 Corrections: (The following items were deleted from the chart) 12:17 12:16 Allergies: No Known Allergies; aa5 aa5
[2022-06-30] MEDS ORDERED: HYDROCODONE/APAP 5/325 MG TAB ONE (13:46)
[2022-06-30 16:45] VITALS: TEMP 98.3; O2SAT 98
[2022-06-30 16:46] VITALS: BP 139/68
== END 2022-06-30 14:01 | disposition home or self-care (01) ==
LOC: ER 11:30
DX: S80.02XA Contusion of left knee, initial encounter (principal); S43.491A Other sprain of right shoulder joint, initial encounter; Z96.652 Presence of left artificial knee joint; Z88.5 Allergy status to narcotic agent
CPT/HCPCS: 96372; 99284

== ENCOUNTER 2023-07-15 14:49 | Emergency (ER) | payer OTHER, MEDICARE ==
--- OUTSIDE RECORDS SUMMARY | 2023-07-15 14:55 | XMS REPORT | Clinical Summary ---
Author Name Unknown Organization [facility] Address [address] [place] [address] Care Team Providers Care Leather Finisher Name Role Phone Merlin Serrato MD Unavailable Colette Sujey Huerta TALLIER Unavailable Tamica Craven TALLIER Primary Care Provider Chacorta Rodriguez DMD Unavailable Lauren Rosa MD Unavailable [phone] Kevin Umanzor MD Unavailable Irena Rogers MD Unavailable Delmy Hobson Unavailable Taylor Orr MD Unavailable Chico Shin MD Unavailable Chacorta Mclaughlin MD Unavailable Baudilio Johnson MD Unavailable [phone] Fany Garcia MD Unavailable [phone] Melquiades Seals MD Unavailable Sapphire Kessler APRN Unavailable [phone] Low Yee MD Unavailable Sapphire Castellanos Unavailable Allergies Active Allergy Reactions Criticality Noted Date Comments Adhesive Rash,Other (See Comments) High 05/29/2018 Tegaderm - itching, rednness; lasted 5 months Tramadol GI Intolerance 09/28/2018 nausea Medications Medication Sig Dispensed Refills Start Date End Date Status levothyroxine (SYNTHROID, LEVOTHROID) 88 mcg tablet Take 1 tablet (88 mcg) by mouth daily. 0 Active artificial tears, carboxymethylcellu lose, (REFRESH PLUS) 0.5% ophthalmic solutionIndication s:Meibomian gland dysfunction,Dry eyes,Bilateral epiphora, not otherwise specified,Infiltra ting duct carcinoma of overlapping sites of right female breast Administer 1 drop to both eyes 4 (four) times a day. 50 each 1 9 Active zinc sulfate (Zinc-220) 220 mg capsuleIndications :Zinc deficiency Take 1 capsule (220 mg) by mouth daily. 30 capsule 2 0 Active cholecalciferol, vitamin D3, (VITAMIN D3 ORAL) Take 1,000 unit marking on U-100 syringe by mouth daily. 0 Active ascorbic acid, vitamin C, (VITAMIN C) 1000 mg tabletIndications: vitamin C deficiency Take 1 tablet (1,000 mg) by mouth daily. 0 Active MAGNESIUM ORAL Take 1 tablet by mouth daily. 0 Active sodium fluoride-potassium nitrate (Prevident 5000 Enamel Protect) 1.1%-5% pste dental pasteIndications:T oothache,Oral infection Apply to teeth twice daily. 1 Bottle 12 1 Active furosemide (LASIX) 20 mg tabletIndications: Localized edema Take 1 tablet (20 mg) by mouth daily as needed for edema. 90 tablet 3 2 Active venlafaxine (EFFEXOR-XR) 37.5 mg 24 hr capsule 1 capsule (37.5 mg) every morning. 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 5 mL 5 3 024 Active triamcinolone (KENALOG) 0.1% creamIndications:H and eczema Apply topically to affected area(s) twice daily. to areas of rash. Avoid face, armpit, groin 454 g 1 3 Active diclofenac sodium 20 mg/gram /actuation(2 %) sopm Apply 1 application topically to affected area(s) as needed. 0 8 Active alendronate (FOSAMAX) 70 mg tablet Take 1 tablet (70 mg) by mouth every 7 days. 0 3 Active clobetasol (Temovate) 0.05% creamIndications:H and eczema Apply topically to affected area(s) twice daily. to affected areas on hands BID prn flares 30 g 1 3 Active exemestane (AROMASIN) 25 mg tabletIndications: Infiltrating duct carcinoma, 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; Right> Take 1 tablet (25 mg) by mouth daily. 90 tablet 3 3 Active atorvastatin (LIPITOR) 40 mg tabletIndications: Dyslipidemia TAKE 1 TABLET BY MOUTH EVERY DAY 90 tablet 3 3 Active dupilumab 300 mg/2 mL pnijIndications:Ec zema Loading dose: 600 mg [2 injectors] subQ on Day 1 followed by maintenance dose of 300 mg [1 injector] subQ every 2 weeks, starting on Day 15. 8 each 1 3 Active Additional Information Patient not taking.Reason: No longer taking, Informant: Self, Reported on 03/27/2023 hyoscyamine sulfate (ANASPAZ) 0.125 mg disintegrating tabletIndications: Stomach cramps Dissolve 1 tablet (0.125 mg) on the tongue every 6 (six) hours as needed for cramping for up to 15 doses. 15 tablet 0 3 Active Additional Information Patient not taking.Reason: No longer taking, Informant: Self, Reported on 03/27/2023 aluminum-magnesium hydroxide-simethic one (MAALOX PLUS) 200 mg-200 mg-20 mg/5 mL suspensionIndicati ons:Erosive gastropathy Take 20 mL by mouth every 4 (four) hours as needed for cramping or indigestion. 355 mL 0 3 Active Additional Information Patient not taking.Reason: No longer taking, Informant: Self, Reported on 06/26/2023 ferrous sulfate 325 (65 FE) MG EC tabletIndications: Iron deficiency anemia, not otherwise specified Take 1 tablet (325 mg) by mouth every other day. 90 tablet 1 4 Active omeprazole (PriLOSEC) 40 MG capsuleIndications :Gastroesophageal reflux disease,Hiatal hernia Take 1 capsule (40 mg) by mouth every morning before breakfast. 30 capsule 3 4 Active diclofenac sodium (Voltaren) 1 % gel Apply 1 application topically to affected area(s) as needed. 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 90 tablet 3 2 023 Discontinued(Th erapy completed) erythromycin (ROMYCIN) ophthalmic ointmentIndication s:Blepharitis <Unspecified side; Unspecified eyelid> Apply a thin strip of ointment over bilateral eyelids at night time 3.5 g 1 2 023 Discontinued(Th erapy completed) clobetasol (Temovate) 0.05% creamIndications:H and eczema Apply topically to affected area(s) twice daily. to affected areas on hands BID prn flares 60 g 1 2 023 Discontinued(Re order) triamcinolone (KENALOG) 0.1% creamIndications:H and eczema Apply topically to affected area(s) twice daily. to areas of rash. 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 5 mL 5 2 023 Discontinued(Re order) ferrous sulfate 325 (65 FE) MG EC tabletIndications: Iron deficiency anemia, not otherwise specified Take 1 tablet (325 mg) by mouth every other day. 90 tablet 1 3 024 Discontinued(Re order) anastrozole (ARIMIDEX) 1 mg tabletIndications: Infiltrating duct carcinoma, 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; Right> Take 1 tablet (1 mg) by mouth daily. 90 tablet 3 3 023 Discontinued(Al ternate therapy) triamcinolone (KENALOG) 0.1% creamIndications:H and eczema APPLY TOPICALLY TO AFFECTED AREA(S) TWICE DAILY. TO AREAS OF RASH. AVOID FACE, ARMPIT, GROIN 454 g 1 3 023 Discontinued(Re order) meloxicam (MOBIC) 15 mg tablet 0 3 023 Discontinued(Th erapy completed) clobetasol (Temovate) 0.05% creamIndications:H and eczema Apply topically to affected area(s) twice daily. to affected areas on hands BID prn flares 60 g 1 3 023 Discontinued(Re order) predniSONE (DELTASONE) 10 mg tabletIndications: Hand eczema Take 4 tablets (40 mg) by mouth daily for 3 days, THEN 2 tablets (20 mg) daily for 3 days, THEN 1 tablet (10 mg) daily for 3 days. 21 tablet 0 3 023 tamoxifen (NOLVADEX) 20 mg tabletIndications: Infiltrating duct carcinoma, 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; Right>,Secondary malignant neoplasm of axillary lymph node Take 1 tablet (20 mg) by mouth daily. 90 tablet 3 3 023 Discontinued exemestane (AROMASIN) 25 mg tabletIndications: Infiltrating duct carcinoma, 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; Right>,Secondary malignant neoplasm of axillary lymph node Take 1 tablet (25 mg) by mouth daily with breakfast. 90 tablet 3 3 023 Discontinued(No t Applicable) LORazepam (Ativan) 0.5 mg tabletIndications: Infiltrating duct carcinoma, 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; Right> Take 1 tablet (0.5 mg) by mouth once for 1 dose. 1 tablet 0 3 023 atorvastatin (LIPITOR) 40 mg tablet TAKE 1 TABLET BY MOUTH EVERY DAY 0 3 023 Discontinued(Re order) buPROPion (WELLBUTRIN XL) 150 mg 24 hr tablet Take 1 tablet (150 mg) by mouth every morning. 0 3 023 Discontinued(Er ror) exemestane (AROMASIN) 25 mg tablet Take 1 tablet (25 mg) by mouth daily with breakfast. 0 023 Discontinued(Er ror) predniSONE (DELTASONE) 10 mg tabletIndications: Eczema Take 4 tablets (40 mg) by mouth daily for 3 days, THEN 2 tablets (20 mg) daily for 5 days, THEN 1 tablet (10 mg) daily for 5 days. 27 tablet 0 3 023 artificial tears, hypromellose, (GENTEAL TEARS MODERATE) drop ophthalmic solutionIndication s:Dry eyes Administer 1 drop to both eyes as needed for dry eyes for up to 30 days. 15 mL 0 3 023 omeprazole (PriLOSEC) 40 MG capsuleIndications :Infiltrating duct carcinoma, 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; Right>,Encounter for chemotherapy,Reflu x esophagitis Take 1 capsule (40 mg) by mouth 2 (two) times a day before meals for 90 days. 60 capsule 2 3 024 amoxicillin-clavul anate (Augmentin) 875 mg-125 mg per tabletIndications: Thyroglossal cyst Take 1 tablet (875 mg) by mouth twice daily for 4 days. 8 tablet 0 3 023 Discontinued(Re order) amoxicillin-clavul anate (Augmentin) 875 mg-125 mg per tabletIndications: Thyroglossal cyst Take 1 tablet (875 mg) by mouth twice daily for 8 days. 16 tablet 0 3 023 Active Problems Patient Care Coordination No te Formatting of this note migh t be different from the original. Pre-screened patient via telephone call on Monday August 26, 2019 for appointment on Wednesday August 28, 2019. Patient states no history of travel, exposure, or symptoms of COVID-19. No history of COVID-19 nasal swab testing Problem Noted Date Diagnosed Date Gastroesophageal reflux disease 06/22/2023 Erosive gastropathy 02/28/2023 Nausea 02/19/2023 Bilateral pulsatile tinnitus 01/12/2023 Last Assessment & Plan: She denies any recurrence of palpitations with the discontinuation of Toprol XL 25 mg PO daily about 6 months ago. However, she reports symptoms consistent with pulsatile tinnitus on occasion. Recommend that she follow up with ENT specialist Will order a bilateral carotid duplex for further evaluation. I advised the patient to monitor her blood pressures and heart rate daily and keep a diary of the recordings. The patient was instructed to provide a copy of this diary to the cardiology clinic for review in 1-2 weeks. Further recommendations will be provided following review of his BP and HR log. Dyslipidemia 09/01/2021 Last Assessment & Plan: Lipid panel done 10/2022 shows total chol 189, trigly 153, HDL 56, and LDL 102. These levels have improved with the use of Lipitor 40 mg PO daily and discussed results in detail with patient. Recommend to continue atorvastatin 40 mg daily. Will plan to repeat lipid panel in 1 year Abdominal diastasis recti 07/17/2020 Melena 04/06/2020 Overview: Added automatically from request for surgery [id number] Osteopenia 10/25/2019 Iron deficiency anemia 09/12/2019 Dysphagia 09/06/2019 Overview: Added automatically from request for surgery [id number] Anemia 09/06/2019 Overview: Added automatically from request for surgery [id number] History of heartburn 10/23/2018 Neuropathy 09/12/2018 Cancer associated pain 08/02/2018 Reflux esophagitis 07/12/2018 Hypomagnesemia 06/21/2018 Fatigue 06/21/2018 Localized edema 05/29/2018 Last Assessment & Plan: Patient with mild ankle edema that is mostly controlled with furosemide PRN. Her echo done 11/11/22 shows normal cardiac function with an LVEF of 60-65%. Will continue with furosemide PRN but all is symptoms worsen. Will plan to repeat echo at next visit in 1 year for follow up. 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 04/18/2018 Cancer Staging:Clinical stage from 04/26/2018:Stage IIA(cT2, cN1(f), cM0, G2, ER+, NH-, HER2+) - Signed by Abbe Pendleton MD on 04/27/2018 Pathologic stage from 09/28/2018:No Stage Recommended(ypT0, pN0(sn), cM0, ER+, NH-, HER2+) - Signed by Abbe Pendleton MD on 10/23/2018 Bilateral arthritis of knees 10/20/2017 Hypothyroidism 09/25/2015 Osteoarthritis 09/25/2015 Resolved Problems Problem Noted Date Diagnosed Date Resolved Date Renal insufficiency 02/19/2023 02/23/20 23 Serum creatinine above reference range 02/19/2023 02/22/2023 Leukocytosis 02/19/2023 02/22/2023 Lightheadedness 02/19/2023 02/22/2023 Dyspnea 02/19/2023 02/22/2023 Palpitations 09/29/2021 02/22/2023 Last Assessment & Plan: She denies any recurrence of palpitations with the discontinuation of Toprol XL 25 mg PO daily about 6 months ago. However, she reports symptoms consistent with pulsatile tinnitus on occasion. Recommend that she follow up with ENT specialist Will order a bilateral carotid duplex for further evaluation. No indication for beta-marilin initiation at this time Esophagitis NOS 01/30/2020 02/22/2023 Overview: Added automatically from request for surgery [id number] Ulcer of esophagus 2019 Overview: Added automatically from request for surgery [id number] Esophagitis, unspecified 2019 Overview: Added automatically from request for surgery [id number] Non-compliance of drug therapy 04/16/2019 02/22/2023 Surveillance following treat ment with high risk medication 12/07/2018 02/22/2023 Last Assessment & Plan: Patient with previous treatment with herceptin in 2019. Her most recent echocardiogram done 11/11/22 shows a normal cardiac function with LVEF of 60-65%. She denies any signs/symptoms of cardiac decompensation at this time. She has a good functional capacity and remains stable without symptoms of ischemia or volume overload. Will plan to check echo in 1 year for follow up and monitoring. Encounter for examination pr ior to antineoplastic chemotherapy 05/29/2018 02/22/2023 Last Assessment & Plan: -Patient does not have history of atrial fibrillation. -Patient is off of metoprolol for last 3 weeks and he does not have any symptoms. Her heart rate and blood pressure isn't controlled. -Patient was advised not to continue metoprolol at this point. 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 02/22/2023 Encounter for chemotherapy 04/26/2018 1 04/24/2022 Disease type AND/OR category unknown 09/25/2015 02/22/2023 Encounters Date Type Department Care Team Description 07/13/2023 Telephone Internal Medicine Center [facility], 6th [place] [address]87 Pedro Comer, RN Appointment 07/10/2023 Telephone Gastrointestinal Center [facility], 7th [place] [address] Rosanne Seay, RN 07/10/2023 Telephone Breast Center - Medical Oncology [address] [facility], 5th [place] [address] Yosef Uribe, ARTURO 07/06/2023 10:20 AM CDT Follow-Up MD [place] [facility] [place] - Dermatology [address] 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; Unspecified eyelid> 07/06/2023 Travel 07/04/2023 Telephone Internal Medicine Center [address] [facility], 6th [place] [address] Pedro Comer, RN Appointment 06/28/2023 11:59 PM CDT Anesthesia Event [facility] [address] [place] [address], 6th Floor [place] [id number] Jere Chauhan, JAGJIT 06/28/2023 4:30 PM CDT POEM Appointments [facility] [address] [place] [address], 6th [place] [address] 06/28/2023 10:45 AM CDT Anesthesia Event [facility] [address] [place] [address], [facility] [place] [address] Joseph Krishnan II, TALLIER 06/28/2023 Documentation [facility] - Gastroenterology, Hepatology & Nutrition [address] [place] [address], 7th [place] [address] Valerie Jones, ARTURO 06/27/2023 11:30 AM CDT Telemedicine Internal Medicine Center - Hematology [address] [facility], 6th [place] [address] Sapphire Kessler APRN Iron deficiency anemia, not otherwise specified (Primary Dx) 06/23/2023 Telephone Gastrointestinal Center [address] [place] [address], [address] [place], [place] [address] [address] Jyoti Pacheco RN 06/22/2023 10:00 AM CDT Follow-Up [facility] - Gastroenterology, Hepatology & Nutrition [address] [place] [address], [address] [place] [address] [place] [address] Chico Mahoney MD Melena (Primary Dx); Other specified hypothyroidism; Gastroesophageal reflux disease; Hiatal hernia; Serum creatinine above reference range; Thyroglossal duct cyst 06/22/2023 9:13 AM CDT - 06/22/2023 11:59 PM CDT Hospital Encounter [facility] [address] [place] [address] Sapphire Kessler APRN Iron deficiency anemia, not otherwise specified; Serum creatinine above reference range; Other specified hypothyroidism; Alkaline phosphatase above reference range; Increased anion gap Discharge Disposition: Home 06/22/2023 Orders Only [facility] - Gastroenterology, Hepatology & Nutrition [address] [place] [address], [address] [place] [address] Chico Mahoney MD Increased anion gap (Primary Dx); Serum creatinine above reference range 06/22/2023 Orders Only [facility] - Gastroenterology, Hepatology & Nutrition [address] [place] [address], [address] [place] [address] Chico Mahoney MD Increased anion gap (Primary Dx); Alkaline phosphatase above reference range 06/22/2023 Orders Only Internal Medicine Center - Hematology [address] [place] [address], 6th [place] [address] Sapphire Kessler APRN Other specified hypothyroidism (Primary Dx) 06/22/2023 Prep for Surgery [facility] - Gastroenterology, Hepatology & Nutrition [address] [place] [address], [address] [place] [address] Valerie Jones APRN Gastroesophageal reflux disease (Primary Dx); Reflux esophagitis, not otherwise specified; Acute posthemorrhagic anemia 06/22/2023 Travel 05/15/2023 9:30 AM [employer] POEM Appointments Per[facility] [address] [facility], 6th [place] [address] 04/28/2023 11:30 AM [employer] Infusion MD [place] - Infusion [address] [place] [address] Sapphire Kessler APRN Iron deficiency anemia, not otherwise specified (Primary Dx); Infiltrating duct carcinoma, 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; Left> 04/28/2023 Travel 04/21/2023 9:30 AM [employer]ING [employer] Infusion MD [facility] [place] - Infusion [address] [place] [address] Sapphire Kessler APRN Iron deficiency anemia, not otherwise specified (Primary Dx); Infiltrating duct carcinoma, 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; Left> 04/21/2023 Travel 04/14/2023 1:00 PM [employer]ING [employer] Infusion [facility] [place] - Infusion [address] [place] [address] Sapphire Kessler APRN Iron deficiency anemia, not otherwise specified (Primary Dx); Infiltrating duct carcinoma, 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; Left> 04/14/2023 Travel 04/11/2023 Orders Only Internal Medicine Center - Hematology [address] [place] [address], 6th [place] [address] Sapphire Kessler APRN Iron deficiency anemia, not otherwise specified 03/30/2023 Orders Only Breast Center - Medical Oncology [address] [place] [address], 5th [place] [address] Yosef Uribe APRN 03/30/2023 Telephone Breast Center - Medical Oncology [address] [place] [address], 5th [place] [address] Yosef Uribe APRN 03/30/2023 Orders Only Breast Center - Medical Oncology [address] [place] [address], 5th [place] [address] Yosef Uribe APRN Infiltrating duct carcinoma, 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; Right> (Primary Dx) 03/27/2023 3:30 PM [employer] Telemedicine Internal [facility] - Hematology [address] [place] [address], 6th [place] [address] Sapphire Kessler APRN Iron deficiency anemia, not otherwise specified (Primary Dx) 03/27/2023 12:45 PM [employer] Ancillary Procedure [facility] [address] [address] Yosef Uribe APRN Infiltrating duct carcinoma, 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; Right> 03/27/2023 Orders Only Internal Medicine Center - Hematology [address] [place] [address], 6th [place] [address] Sapphire Kessler APRN Iron deficiency anemia, not otherwise specified (Primary Dx) 03/27/2023 Travel 03/20/2023 Telephone G[facility] Center [address] [place] [address], 7th [place] [address] Jyoti Pacheco V, nuclear operations specialist Refill 03/10/2023 Travel 03/06/2023 Orders Only [facility] - Gastroenterology, Hepatology & Nutrition [address] [place] [address], 7th [place] [address] Valerie Jones APRN 02/28/2023 11:02 AM [employer] Anesthesia Event Endoscopy Center [address] [place] [address], 5th [place] [address] Yen Ramírez MD 02/28/2023 8:20 AM [employer] - 02/28/2023 11:15 AM [employer] Surgery [facility]oscopy Center [address] [place] [address] Main [facility], 5th [place] [address] Chico Mahoney MD DEVICE ASSISTED ENTEROSCOPY,UPPER (WITHOUT FLOURO) 02/27/2023 1:59 PM [employer] Anesthesia Event [facility] Center [address] [place] [address] Main Bldg, 5th [place] [address] Vandana Oneil MD 02/27/2023 1:59 PM [employer] - 02/27/2023 2:59 PM [employer] Surgery [facility] [address] [place] [address] Main Bldg, 5th [place] [address] Cononr Johnson MD Not Performed FLEXIBLE COLONOSCOPY PROXIMAL TO SPLENIC FLEXURE WITH BIOPSY 02/24/2023 11:21 AM [employer] Anesthesia Event [facility] [address] [place] [address] Main Bldg, 5th [place] [address] Mulugeta Lott MD Silva, Jason M, MEDICAL ARTIST 02/24/2023 10:41 AM [employer] - 02/24/2023 12:01 PM [employer] Surgery [facility] [address] [place] [address] Main Bldg, 5th [place] [address] Minesh Oneal MD SMALL INTESTINAL ENDOSCOPY WITH CONTROL OF BLEEDING NOT INCLUDING ILEUM 02/23/2023 Prep for Surgery [facility] - Gastroenterology, Hepatology & Nutrition [address] [place] [address] Main Bldg, 7th [place] [address] Penny Merrill MD Iron deficiency anemia, not otherwise specified (Primary Dx) 02/21/2023 2:53 PM [employer] Anesthesia Event [facility] [address] [place] [address] Main Bldg, 5th [place] [address] Allison Bhagat MD Lewis, Brandon Asher, CRNA 02/21/2023 12:00 PM [employer] - 02/21/2023 1:10 PM [employer] Surgery [facility] Center [address] [place] [address] Main Bldg, 5th [place] [address] Chico Mahoney MD DIAGNOSTIC UPPER GASTROINTESTINAL ENDOSCOPY 02/19/2023 5:44 PM [employer] - 03/01/2023 5:27 PM [employer] Hospital Encounter MAIN [facility] [address] [place] [address] AníbalScott MD Sandoval, Marcelo A., MD Phyu, MD Jeff Rosales David, MD Dickson, Kodwo, MD Melena (Primary Dx); Near syncope; 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; Iron deficiency anemia, not otherwise specified; Dysphagia, not otherwise specified; Encounter for chemotherapy; Reflux esophagitis; Erosive gastropathy; Thyroglossal cyst; Stomach cramps; Dry eyes; Dyslipidemia Discharge Disposition: Home 02/19/2023 Travel 02/14/2023 Documentation Cardiopulmonary Center [facility], 6th [place] [address] Sonia Perera, JAGJIT 02/14/2023 Documentation Cardiopulmonary Center [address] [place] [address], 6th [place] [address] Sonia Perera, JAGJIT 02/14/2023 Telephone MD [place] in [address] 200 [place] [address] Cherry Nicole, JAGJIT Patient Education 02/13/2023 2:30 PM BOX SPRING MAKER Telemedicine Internal Medicine Center - Hematology [address] [place] [address], 6th [place] [address] Sapphire Kessler APRN Iron deficiency anemia, not otherwise specified (Primary Dx) 02/09/2023 Telephone Internal Medicine Center [address] [place] [address], 6th [place] [address] Queenie Goff, RN Appointment 02/07/2023 Telephone MD [place] in [address] 200 [place] [address] Cherry Nicole, nuclear operations specialist Refill 02/02/2023 Orders Only Breast Center - Medical Oncology [address] [place] [address], 5th [place] [address] Yosef Uribe APRN Infiltrating duct carcinoma, 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; Right> (Primary Dx) 02/01/2023 Telephone MD [place] in [address] 200 [place] [address] Cherry Nicole, RN Patient Education 01/31/2023 Orders [place] [address] Irena Rogers MD Eczema (Primary Dx) 01/23/2023 Orders Only Breast Center - Medical Oncology [address] [facility], 5th [place] [address] Yosef Uribe, TALLIER 01/20/2023 Telephone Gastrointestinal Center [address] [facility] Main Bldg, 7th [place] [address] Waldo Garrison, RN 01/19/2023 [place] [address] Irena Rogers MD 01/13/2023 Telephone MD [place] in [address] 200 [place] [address] Cherry Nicole, JAGJIT Results 01/12/2023 8:30 AM CDT Telemedicine Cardiopulmonary Center [address] [facility] Main dg, 6th Floor Elevator [place] [phone] Sujey Hobson, TALLIER Ama Lei PA Dyslipidemia (Primary Dx); Localized edema; Surveillance following treatment with high risk medication; Palpitations; Bilateral pulsatile tinnitus; Hypertension 01/11/2023 Telephone Gastrointestinal Center [address], 7th [place] [address] Cyndee Trevizo RN 12/28/2022 Documentation Cardiopulmonary Center [address] [facility] Main Bldg, 6th [place] [address] Sonia Perera, RN 12/27/2022 Telephone Cardiopulmonary Center [address], 6th [place] [address] Delym Crespo, TALLIER 12/27/2022 Telephone STEPHIE CASTILLO PHYSICIAN [facility]5 [place] [phone] Lesa Silveira, photonics engineering technologist Call 12/26/2022 Telephone STEPHIE CASTILLO PHYSICIAN [address] [place] [address] Mica Mari, photonics engineering technologist Call 12/23/2022 10:31 AM CDT - 12/23/2022 11:31 AM CDT Hospital Encounter Endoscopy Center [address] [place] [address], 5th Floor Elevator [place] [phone] hCico Mahoney MD Discharge Disposition: Home 12/23/2022 9:25 AM CDT - 12/23/2022 9:55 AM CDT Surgery Endoscopy Center [address] [place] [address], [facility] Floor Elevator [place] [phone] Chico Mahoney MD INTRALUMINAL GASTROINTESTINAL TRACT IMAGING OF ESOPHAGUS THROUGH ILEUM 12/23/2022 Prep for Procedure Gastrointestinal Center - Gastroenterology, Hepatology & Nutrition [address] [place] [address], 7th Floor Elevator [place] [phone] Chico Mahoney MD Iron deficiency anemia, not otherwise specified (Primary Dx); Dysphagia, not otherwise specified 12/23/2022 Travel 12/22/2022 Orders Only Breast [place] - Medical Oncology [address] [place] [address], 5th [place] [address] Yosef Uribe APRN Infiltrating duct carcinoma, 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; Right> (Primary Dx) 12/22/2022 Telephone Breast [place] - Medical Oncology [address] [place] [address], 5th Floor Elevator [place] [id number] Lyndsey Masterson RN 12/21/2022 3:00 PM CDT Telemedicine Internal Medicine Center - Hematology [address] [place] [address], 6th [place] [address] Sapphire Kessler APRN Iron deficiency anemia, not otherwise specified (Primary Dx) 12/20/2022 Telephone Breast [place] - Medical Oncology [address] [place] [address], 5th Floor Elevator [place] [phone] Ayesha Celis RN 12/19/2022 2:20 PM CDT Follow-Up MD [place] in [place] - Dermatology [address] [place] [address] 200 [place] [address] Irena Rogers MD Hand eczema; Skin cancer screening; Seborrheic keratosis; Melanocytic nevus of trunk; Postmenopausal androgenetic alopecia; 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; Unspecified eyelid>; Neoplasm of uncertain behavior of skin 12/19/2022 Travel 12/16/2022 Telephone MD [place] in [place] - Medical Oncology [address] [place] [address] 200 [place] [address] Waleska Sal MA 12/13/2022 Telephone Breast [place] - Medical Oncology [address] [place] [address], 5th [place] [address] Sumaya Tompkins RN Switch Medication 11/29/2022 12:50 PM CDT Ancillary Procedure MD [place] [address] [address] Yosef Uribe APRN Infiltrating duct carcinoma, 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; Right>; Secondary malignant neoplasm of axillary lymph node 11/29/2022 Orders Only Breast Center - Medical Oncology [address] [place] [address], 5th [place] [address] Yosef Uribe APRN Infiltrating duct carcinoma, 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; Right> (Primary Dx) 11/29/2022 Travel 11/25/2022 Orders Only Breast Center - Medical Oncology [address] [place] [address], 5th Floor Elevator [place], [place] [phone] Herlinda Gabriel APRN 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 (Primary Dx) 11/25/2022 Telephone Breast Center - Medical Oncology [address] [place] [address], 5th [place] [address] Jeovanny Gerber RN 11/11/2022 2:00 PM CDT Follow-Up Breast Center - Medical Oncology [address] [place] [address], 5th [place] [address] Yosef Uribe APRN Infiltrating duct carcinoma, 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; Right> (Primary Dx); Secondary malignant neoplasm of axillary lymph node; Menopausal flushing; Pain in joint, not otherwise specified; Alopecia, not otherwise specified 11/11/2022 12:50 PM CDT - 11/11/2022 11:59 PM CDT Hospital Encounter Cardiopulmonary Center [facility], 6th [place] [address] Sujey Hobson APRN Hypertension; Dyslipidemia; Localized edema; Surveillance following treatment with high risk medication; Palpitations Discharge Disposition: Home 11/11/2022 10:49 AM CDT - 11/11/2022 12:49 PM CDT Hospital Encounter Breast Imaging [address] [place] [address], 5th [place] [address] UribeYosef APRN Infiltrating duct carcinoma, 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; Right>; Secondary malignant neoplasm of axillary lymph node Discharge Disposition: Home 11/11/2022 10:00 AM CDT Ancillary Procedure Nuclear Medicine [address] [place] [address], 6th [facility], [place] [address] Yosef Uribe APRN Infiltrating duct carcinoma, 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; Right>; Secondary malignant neoplasm of axillary lymph node 11/11/2022 Travel 10/18/2022 Orders Only Internal Medicine Center - Hematology [address] [place] [address], 6th [place] [address] Sapphire Kessler APRN 10/14/2022 3:15 PM CDT Telemedicine Internal Medicine Center - Hematology [address] [place] [address], 6th [place] [address] Sapphire Kessler APRN Iron deficiency anemia, not otherwise specified (Primary Dx) 10/14/2022 10:30 AM CDT Consult Gastrointestinal Center - Gastroenterology, Hepatology & Nutrition [facility], 7th [place] [address] Zackery Tapia MD Mazhuvanchery, Cyril, DO Iron deficiency anemia, not otherwise specified 10/14/2022 9:15 AM CDT - 10/14/2022 11:59 PM CDT Hospital Encounter Diagnostic Laboratory Center [address] [place] [address] Sujey Hobson APRN Hypertension; Dyslipidemia; Localized edema; Surveillance following treatment with high risk medication; Palpitations Discharge Disposition: Home 10/14/2022 9:00 AM CDT - 10/14/2022 9:14 AM CDT Hospital Encounter Diagnostic Laboratory Center [address] [place] [address] Sapphire Kessler APRN Iron deficiency anemia, not otherwise specified Discharge Disposition: Home 10/14/2022 Orders Only Internal Medicine Center - Hematology [address] [place] [address], [facility] [place] [address] Sapphire Kessler APRN Iron deficiency anemia, not otherwise specified (Primary Dx) 10/14/2022 Prep for Surgery Gastro[facility] - Gastroenterology, Hepatology & Nutrition [address] [place] [address] Florentino Santillan DO Iron deficiency anemia, not otherwise specified (Primary Dx) 10/14/2022 Travel 10/03/2022 Orders Only Internal Medicine Center - Hematology [address] [place] [address], [facility] [place] [address] Sapphire Kessler APRN Iron deficiency anemia, not otherwise specified (Primary Dx) 09/30/2022 3:00 PM CDT Telemedicine Internal Medicine Center - Hematology [address] [place] [address], [facility] [place] [address] Sapphire Kessler APRN Iron deficiency anemia, not otherwise specified (Primary Dx) 09/20/2022 10:45 AM CDT Infusion MD [place] - Infusion [address] [address] Sapphire Kessler APRN Iron deficiency anemia, not otherwise specified (Primary Dx); Infiltrating duct carcinoma, 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; Left> 09/20/2022 Orders Only Internal Medicine Center - Hematology [address] [place] [address], 6th [place] [address] Sapphire Kessler TALLIER 09/20/2022 Travel 09/13/2022 11:00 AM CDT Infusion MD [place] - Infusion [address] [place] [address] Sapphire Kessler APRN Iron deficiency anemia, not otherwise specified (Primary Dx) 09/13/2022 Travel 09/09/2022 Telephone MD [place] in [address] [address] Fatemeh Lyn RN 09/08/2022 1:20 PM CDT Follow-Up MD [place] in [address] [address] Irena Rogers MD Hand eczema; Skin cancer screening; Seborrheic keratosis; Melanocytic nevus of trunk; Postmenopausal androgenetic alopecia; 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; Unspecified eyelid> 09/08/2022 Orders Only Internal Medicine Center - Hematology [address] [place] [address], 6th [place] [address] Sapphire Kessler APRN 09/08/2022 Travel 09/02/2022 Orders Only Internal Medicine Center - Hematology [address] [place] [address], 6th [place] [address] Meran Kan TALLIER 08/30/2022 10:45 AM CDT Infusion MD [place] - Infusion [address] [place] [address] Sapphire Kessler APRN Iron deficiency anemia, not otherwise specified (Primary Dx); Infiltrating duct carcinoma of overlapping 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 breast 08/30/2022 Travel 08/25/2022 Orders Only Internal Medicine Center - Hematology [address] [place] [address], 6th [place] [address] ChecoSapphire katARTURO 08/24/2022 5:00 PM CDT Telemedicine Internal Medicine Center - Hematology [address] [place] [address], 6th [place] [address] Sapphire Kessler, TALLIER Iron deficiency anemia, not otherwise specified (Primary Dx) 08/24/2022 Orders Only Internal Medicine Center - Hematology [address] [place] [address], 6th [place] [address] Sapphire Kessler, TALLIER Iron deficiency anemia, not otherwise specified (Primary Dx) 08/24/2022 Orders Only Internal Medicine Center - Hematology [address] [place] [address], 6th [place] [address] Sapphire Kessler, TALLIER Iron deficiency anemia, not otherwise specified (Primary Dx) 08/08/2022 Refill MD [place] in [place] - Dermatology [facility] [address] [place] [address] Irena Rogers MD Hand eczema after 07/15/2022 Surgical History Surgery Date Site/Laterality Comments HYSTERECTOMY 04/10/2007 - 04/09/2008 ROSAS/BSO excluding cervix TONSILLECTOMY 04/10/1969 - 04/09/1970 BREAST CYST EXCISION 04/10/1967 - 04/09/1968 Right SALPINGOOPHORECTOMY 04/10/1987 - 04/09/1988 Left due to tubal LAPAROSCOPIC CHOLECYSTECOMY 04/10/1995 - 04/09/1996 KNEE SURGERY 04/10/2017 - 04/09/2018 Left BREAST BIOPSY 03/26/2018 Right BREAST BIOPSY 04/26/2018 Left LYMPH NODE BIOPSY 04/26/2018 Right Intra-mammary Lymph Node NH INSJ TUNNELED CTR VAD W/S UBQ PORT AGE 5 YR/> 05/07/2018 Neck/Left Procedure: PORT-A-CATH PLACEMENT; Surgeon: Michoacano Seay MD; Location: [facility]; Service: SURG ONC - PORT Medical devices from this surgery are in the Medical Devices section. NH US VASC ACCESS SITS VSL PATENCY NDL ENTRY 05/07/2018 Left Procedure: US GUIDANCE WITH EVAL OF POTENTIAL ACCESS SITES, REALTIME US VISUALIZATION OF VASC NEEDLE ENTRY; Surgeon: Michoacano Seay MD; Location: [facility]; Service: SURG ONC - PORT Medical devices from this surgery are in the Medical Devices section. NH FLUORO CENTRAL VENOUS ACC ESS DEV PLACEMENT 05/07/2018 Neck/Left Procedure: FLUORO GUIDANCE FOR CENTRAL VENOUS ACCESS DEVICE PLACEMENT, REPLACEMENT, OR REMOVAL; Surgeon: Michoacano Seay MD; Location: [facility]; Service: SURG ONC - PORT Medical devices from this surgery are in the Medical Devices section. NH MASTECTOMY PARTIAL 09/28/2018 Breast/Bilateral Procedure: MAG SEED SEGMENTAL MASTECTOMY RIGHT X 2; LEFT X 1; Surgeon: Barb Kelsey MD; Location: [facility]; Service: BREAST NH INTRAOP SENTINEL LYMPH NO DE ID W/DYE INJECTION 09/28/2018 Axilla/Bilateral Procedure: IOLM; Surgeon: Barb Kelsey MD; Location: [facility]; Service: BREAST NH BX/EXC LYMPH NODE OPEN DE EP AXILLARY NODE 09/28/2018 Axilla/Bilateral Procedure: SLNB; Surgeon: Barb Kelsey MD; Location: [facility]; Service: BREAST NH ADJACENT TISSUE TRANSFER/REARGMT TRUNK 10 SQCM/< 09/28/2018 Breast/Bilateral Procedure: REARRANGEMENT OF ADJACENT TISSUE FOR REPAIR OF DEFECT OF TRUNK; Surgeon: Chacorta Mclaughlin MD; Location: [facility]; Service: PLS - PLASTIC SURGERY NH MASTOPEXY 09/28/2018 Breast/Bilateral Procedure: MASTOPEXY; Surgeon: Chacorta Mclaughlin MD; Location: [facility]; Service: PLS - PLASTIC SURGERY NH BREAST RECONSTRUC W OTHR TECHNIQ 09/28/2018 Breast/Bilateral Procedure: RECONSTRUCTION OF BREAST WITH OTHER TECHNIQUE; Surgeon: Chacorta Mclaughlin MD; Location: [facility]; Service: PLS - PLASTIC SURGERY EGD multiple at [facility]; with dilations; last one 2018 COLONOSCOPY 04/10/2014 - 04/09/2015 at [facility]; normal exam per pt report; f/up recommended in 10 years NH EGD TRANSORAL BIOPSY SINGLE/MULTIPLE 10/16/2019 Esophagus/N/A Procedure: UPPER GASTROINTESTINAL ENDOSCOPY OF ESOPHAGUS, STOMACH, AND DUODENUM WITH BIOPSY; Surgeon: Benjamin Chairez MD; Location: [facility]; Service: GASTROENTEROLOGY; f/up 3 months NH COLONOSCOPY W/BIOPSY SINGLE/MULTIPLE 10/16/2019 N/A Procedure: FLEXIBLE COLONOSCOPY PROXIMAL TO SPLENIC FLEXURE WITH BIOPSY; Surgeon: Benjamin Chairez MD; Location: MAIN ENDOSCOPY; Service: GASTROENTEROLOGY NH ESOPHAGOGASTRODUODENOSCOP Y TRANSORAL DIAGNOSTIC 04/15/2020 Esophagus/N/A Procedure: DIAGNOSTIC UPPER GASTROINTESTINAL ENDOSCOPY; Surgeon: Baudilio Johnson MD; Location: [facility] END[facility]; Service: GASTROENTEROLOGY NH ESOPHAGOGASTRODUODENOSCOP Y TRANSORAL DIAGNOSTIC 07/29/2021 Esophagus/N/A Procedure: DIAGNOSTIC UPPER GASTROINTESTINAL ENDOSCOPY; Surgeon: Barry Callaway MD; Location: [facility] ENDOS[facility]; Service: GASTROENTEROLOGY NH GI TRC IMG INTRALUMINAL ESOPHAGUS-ILEUM W/I&R 12/23/2022 N/A Procedure: INTRALUMINAL GASTROINTESTINAL TRACT IMAGING OF ESOPHAGUS THROUGH ILEUM; Surgeon: Chico Mahoney MD; Location: MAIN ENDOSCOPY; Service: GASTROENTEROLOGY NH ESOPHAGOGASTRODUODENOSCOP Y TRANSORAL DIAGNOSTIC 02/21/2023 Esophagus/N/A Procedure: DIAGNOSTIC UPPER GASTROINTESTINAL ENDOSCOPY; Surgeon: Chico Mahoney MD; Location: MAIN ENDOSCOPY; Service: GASTROENTEROLOGY NH GI TRC IMG INTRALUMINAL ESOPHAGUS-ILEUM W/I&R 02/21/2023 N/A Procedure: INTRALUMINAL GASTROINTESTINAL TRACT IMAGING OF ESOPHAGUS THROUGH ILEUM; Surgeon: Chico Mahoney MD; Location: MAIN ENDOSCOPY; Service: GASTROENTEROLOGY NH ENTEROSCOPY > 2ND PRTN W/CONTROL BLEEDING 02/24/2023 N/A Procedure: SMALL INTESTINAL ENDOSCOPY WITH CONTROL OF BLEEDING NOT INCLUDING ILEUM; Surgeon: Minesh Oneal MD; Location: MAIN ENDOSCOPY; Service: GASTROENTEROLOGY NH UNLISTED PROCEDURE SMALL INTESTINE 02/28/2023 N/A Procedure: DEVICE ASSISTED ENTEROSCOPY,UPPER (WITHOUT FLOURO); Surgeon: Chico Mahoney MD; Location: MAIN ENDOSCOPY; Service: GASTROENTEROLOGY NH COLONOSCOPY FLX DX W/CHELSEY J SPEC WHEN PFRMD 02/28/2023 N/A Procedure: DIAGNOSTIC FLEXIBLE COLONOSCOPY PROXIMAL TO SPLENIC FLEXURE; Surgeon: Chico Mahoney MD; Location: MAIN ENDOSCOPY; Service: GASTROENTEROLOGY Medical History Medical History Date Comments Depressive disorder Irregular heart beat controlled with metoprolol; resolved Hypothyroidism Arthritis Anxiety Ectopic Breast cancer 03/2018 Gastroesophageal reflux disease Hypertension Per patient, she does not have HTN Diastasis recti of abdomen per p t report; advised to have repair by outside MD Postoperative nausea and vomiting Benign polyp of colon 10/18/2019 hyperplast ic polyp; s/p polypectomy Hiatal hernia 10/18/2019 4 cm hiatal lola ia noted on EGD Ulcer of esophagus 10/18/2019 Diverticulosis of sigmoid colon 10/18/2019 multiple small-mouthed diverticulosis noted on colonoscopy Esophagitis, unspecified 10/18/2019 LA Grad e C Obesity Personal history of chemotherapy History of radiation therapy Palpitations 09/29/2021 Renal insufficiency 02/19/2023 Dyspnea 02/19/2023 Family History Medical History Relation Name Comments [...] Date Smoking Tobacco: Former Cigarettes 0.3 5 Q uit: 04/26/2016 Smokeless Tobacco: Never Comments:social smoking with friends Alcohol Use Standard Drinks/Week Comments Yes 0 (1 standard drink = 0.6 oz pure alcohol) david with djiboutian twice a month Sex and Gender Information Value Date Recorded Sex Assigned at Female 09/06/2019 10:37 AM CDT Gender Identity Female 09/06/2019 10:37 AM CDT Sexual Orientation Not on file Job Start Date Occupation Industry Not on file Not on file Not on file Obstetrics History Para Term AB IAB SAB Ectopic Multiple Livin g Live Births 3 2 Date Outcome GA Total Labor Labor/2nd/3rd Weight Sex Delivery Anes PTL [place] A1 A5 Name Cl in Para Para Comments Menopause 56 surgical due to prolapsed uterus and bladder HRT 1 year; Estrace 1-2 years Menarche 13 Parity 31 Breast feed 9 months OCP 3 years Last Filed Vital Signs Vital Sign Reading Time Taken Comments Blood Pressure 121/75 07/06/2023 10:35 AM CDT Pulse 80 07/06/2023 10:35 AM CDT Temperature 36.5 C (97.7 F) 07/06/2023 10:35 AM C DT Respiratory Rate 18 07/06/2023 10:35 AM CDT Oxygen Saturation 97% 06/22/2023 11:01 AM CDT Inhaled Oxygen Concentration - - Weight 86.8 kg (191 lb 5.8 oz) 07/06/2023 10:35 AM CDT Height 155.5 cm (5' 1.22") 03/27/2023 1:01 PM CS T Body Mass Index 35.9 03/27/2023 1:01 PM BOX SPRING MAKER Plan of Treatment Upcoming Encounters Date Type Department Care Team Description 07/26/2023 1:00 PM CDT Appointment [facility] - Surgical Oncology [address] [place] [address], 10th Floor, [place] [address] Ivan Johnson MD [address] [place] [address] 08/08/2023 Hospital Encounter Endoscopy Center [address] [facility], 5th [place] [address] Chico Mahoney MD [facility] [place] [address] 10/03/2023 12:30 PM CDT Telemedicine Internal Medicine Center - Hematology [address] [facility], 6th [place] [address] Sapphire Kessler APRN [facility] [place] [address] 01/11/2024 2:40 PM CDT Follow-Up MD [place] in [place] - Dermatology [address] [facility] 200 [place] [address] Irena Rogers MD [address] [place] [address] 01/15/2024 8:30 AM CDT Appointment Cardiopulmonary Center [address] [facility], 5th [place] [address] Ama Lei PA [address] [place] [id number] Scheduled Procedures Name Priority Associated Diagnoses Date/Ti me DIAGNOSTIC UPPER GASTROINTES TINAL ENDOSCOPY Gastroesophageal reflux disease Reflux esophagitis, not otherwise specified Acute posthemorrhagic anemia INTRALUMINAL GASTROINTESTINA L TRACT IMAGING OF ESOPHAGUS THROUGH ILEUM Gastroesophageal reflux disease Reflux esophagitis, not otherwise specified Acute posthemorrhagic anemia ESOPHAGEAL MOTILITY STUDY,MANOMETRY W STIMULATION/PERFUSION Gastroesophageal reflux disease Reflux esophagitis, not otherwise specified Acute posthemorrhagic anemia Health Maintenance Due Date Last Done Comments COVID-19 Vaccine (#1) 10/22/1955 Influenza Vaccine 12/09/2022 Medical Devices Implanted Type Area All Source Collection Manager Device Identifier Shelf Expiration Date Model / Serial / Lot Ezio Little Isp 6fr - [id number] Implanted:Qty: 1 on 05/07/2018 by Michoacano Seay MD at [facility] Explanted:11/2019 (Quantity not on file) Port Left: Chest Wall BARD PERIPHERAL VASCULAR 07/09/2019 [id number] / / [id number] Description:LENGTH OF CATHET ER= 27 cm Procedures Procedure Name Priority Date/Time Associated Diagnosis Comments PATHOLOGY BIOPSY INTERPRETATION Routine 07/06/2023 11:19 AM CDT Neoplasm of uncertain behavior of skin VITAMIN D 25 HYDROXY LEVEL Add-On 06/22/2023 9:32 AM CDT Increased anion gap Alkaline phosphatase above reference range PHOSPHORUS LEVEL Add-On 06/22/2023 9:32 AM CDT Increased anion gap GAMMA GLUTAMYL TRANSFERASE Add-On 06/22/2023 9:32 AM CDT Alkaline phosphatase above reference range THYROID STIMULATING HORMONE Add-On 06/22/2023 9:32 AM CDT Other specified hypothyroidism FREE THYROXINE Add-On 06/22/2023 9:32 AM CDT Other specified hypothyroidism MAGNESIUM LEVEL Add-On 06/22/2023 9:32 AM CDT Serum creatinine above reference range HEPATIC FUNCTION PANEL Add-On 9:32 AM CDT Serum creatinine above reference range BASIC METABOLIC PANEL, CALCIUM TOTAL Add-On 06/22/2023 9:32 AM CDT Serum creatinine above reference range .CBC Routine 06/22/2023 9:32 AM CDT Iron deficiency anemia, not otherwise specified TRANSFERRIN Routine 06/22/2023 9:32 AM CDT Iron deficiency anemia, not otherwise specified FERRITIN Routine 06/22/2023 9:32 AM CDT Iron deficiency anemia, not otherwise specified IRON LEVEL Routine 06/22/2023 9:32 AM CDT Iron deficiency anemia, not otherwise specified COMPLETE BLOOD COUNT W/ DIFFERENTIAL Routine 06/22/2023 9:32 AM CDT Iron deficiency anemia, not otherwise specified .CBC Routine 03/27/2023 12:48 PM BOX SPRING MAKER Iron deficiency anemia, not otherwise specified TRANSFERRIN Routine 03/27/2023 12:48 PM BOX SPRING MAKER Iron deficiency anemia, not otherwise specified FERRITIN Routine 03/27/2023 12:48 PM BOX SPRING MAKER Iron deficiency anemia, not otherwise specified IRON LEVEL Routine 03/27/2023 12:48 PM BOX SPRING MAKER Iron deficiency anemia, not otherwise specified COMPLETE BLOOD COUNT W/ DIFFERENTIAL Routine 03/27/2023 12:48 PM BOX SPRING MAKER Iron deficiency anemia, not otherwise specified .CBC Routine 03/01/2023 8:44 AM BOX SPRING MAKER BASIC METABOLIC PANEL, CALCIUM TOTAL Routine 03/01/2023 8:44 AM BOX SPRING MAKER COMPLETE BLOOD COUNT W/ DIFFERENTIAL Routine 03/01/2023 8:44 AM [employer] PHOSPHORUS LEVEL Routine 03/01/2023 8:44 AM [employer] MAGNESIUM LEVEL Routine 03/01/2023 8:44 AM [employer] PATHOLOGY BIOPSY INTERPRETATION Routine 02/28/2023 1:07 PM [employer] Iron deficiency anemia, not otherwise specified DIAGNOSTIC FLEXIBLE COLONOSCOPY PROXIMAL TO SPLENIC FLEXURE 02/28/2023 10:52 AM [employer] Iron deficiency anemia, not otherwise specified DEVICE ASSISTED ENTEROSCOPY,UPPER (WITHOUT FLOURO) 02/28/2023 10:52 AM [employer] Iron deficiency anemia, not otherwise specified .CBC Routine 02/28/2023 3:36 AM [employer] BASIC METABOLIC PANEL, CALCIUM TOTAL Routine 02/28/2023 3:36 AM [employer] COMPLETE BLOOD COUNT W/ DIFFERENTIAL Routine 02/28/2023 3:36 AM [employer] PHOSPHORUS LEVEL Routine 02/28/2023 3:36 AM [employer] MAGNESIUM LEVEL Routine 02/28/2023 3:36 AM [employer] .CBC Routine 02/27/2023 2:39 AM [employer] BASIC METABOLIC PANEL, CALCIUM TOTAL Routine 02/27/2023 2:39 AM [employer] COMPLETE BLOOD COUNT W/ DIFFERENTIAL Routine 02/27/2023 2:39 AM [employer] PHOSPHORUS LEVEL Routine 02/27/2023 2:39 AM [employer] MAGNESIUM LEVEL Routine 02/27/2023 2:39 AM [employer] .CBC Routine 02/26/2023 2:42 AM [employer] BASIC METABOLIC PANEL, CALCIUM TOTAL Routine 02/26/2023 2:42 AM [employer] COMPLETE BLOOD COUNT W/ DIFFERENTIAL Routine 02/26/2023 2:42 AM [employer] PHOSPHORUS LEVEL Routine 02/26/2023 2:42 AM [employer] MAGNESIUM LEVEL Routine 02/26/2023 2:42 AM [employer] .CBC Routine 02/25/2023 3:39 AM [employer] BASIC METABOLIC PANEL, CALCIUM TOTAL Routine 02/25/2023 3:39 AM [employer] COMPLETE BLOOD COUNT W/ DIFFERENTIAL Routine 02/25/2023 3:39 AM [employer] PHOSPHORUS LEVEL Routine 02/25/2023 3:39 AM [employer] MAGNESIUM LEVEL Routine 02/25/2023 3:39 AM [employer] SMALL INTESTINAL ENDOSCOPY WITH CONTROL OF BLEEDING NOT INCLUDING ILEUM 02/24/2023 11:11 AM [employer] Iron deficiency anemia, not otherwise specified .CBC Routine 02/24/2023 3:19 AM [employer] TYPE AND SCREEN Routine 02/24/2023 3:19 AM [employer] FREE THYROXINE Routine 02/24/2023 3:19 AM [employer] THYROID STIMULATING HORMONE Routine 02/24/2023 3:19 AM [employer] COMPLETE BLOOD COUNT W/ DIFFERENTIAL Routine 02/24/2023 3:19 AM [employer] COMPREHENSIVE METABOLIC PANEL Routine 02/24/2023 3:19 AM [employer] PHOSPHORUS LEVEL Routine 02/24/2023 3:19 AM [employer] MAGNESIUM LEVEL Routine 02/24/2023 3:19 AM [employer] XR ABDOMEN 1 VW PORTABLE Routine 02/23/2023 8:25 AM [employer] .CBC Routine 02/23/2023 3:16 AM [employer] COMPLETE BLOOD COUNT W/ DIFFERENTIAL Routine 02/23/2023 3:16 AM [employer] COMPREHENSIVE METABOLIC PANEL Routine 02/23/2023 3:16 AM [employer] PHOSPHORUS LEVEL Routine 02/23/2023 3:16 AM [employer] MAGNESIUM LEVEL Routine 02/23/2023 3:16 [address] [employer] [address] [address] SOFT TISSUE NECK W CONTRAST Routine 02/22/2023 10:41 PM [employer] .CBC Routine 02/22/2023 4:44 AM [employer] COMPLETE BLOOD COUNT W/ DIFFERENTIAL Routine 02/22/2023 4:44 AM [employer] LACTATE DEHYDROGENASE Routine 02/22/2023 4:44 AM [employer] COMPREHENSIVE METABOLIC PANEL Routine 02/22/2023 4:44 AM [employer] PHOSPHORUS LEVEL Routine 02/22/2023 4:44 AM [employer] MAGNESIUM LEVEL Routine 02/22/2023 4:44 AM [employer] PATHOLOGY BIOPSY INTERPRETATION Routine 02/21/2023 3:14 PM [employer] Iron deficiency anemia, not otherwise specified Dysphagia, not otherwise specified INTRALUMINAL GASTROINTESTINAL TRACT IMAGING OF ESOPHAGUS THROUGH ILEUM 02/21/2023 2:43 PM [employer] Iron deficiency anemia, not otherwise specified Dysphagia, not otherwise specified DIAGNOSTIC UPPER GASTROINTESTINAL ENDOSCOPY 02/21/2023 2:43 PM [employer] Iron deficiency anemia, not otherwise specified Dysphagia, not otherwise specified .CBC Routine 02/21/2023 8:25 AM [employer] LACTATE DEHYDROGENASE Routine 02/21/2023 8:25 AM [employer] COMPREHENSIVE METABOLIC PANEL Routine 02/21/2023 8:25 AM [employer] PHOSPHORUS LEVEL Routine 02/21/2023 8:25 AM [employer] MAGNESIUM LEVEL Routine 02/21/2023 8:25 AM [employer] COMPLETE BLOOD COUNT W/ DIFFERENTIAL Routine 02/21/2023 8:25 AM [employer] TRANSFUSE RED BLOOD CELLS Routine 02/21/2023 2:02 AM [employer] PREPARE RBC Routine 02/20/2023 10:30 PM [employer] .CBC Routine 02/20/2023 8:59 PM [employer] COMPLETE BLOOD COUNT W/ DIFFERENTIAL Routine 02/20/2023 8:59 PM [employer] .CBC Routine 02/20/2023 2:01 PM [employer] FERRITIN Routine 02/20/2023 2:01 PM [employer] IRON LEVEL Routine 02/20/2023 2:01 PM [employer] TRANSFERRIN Routine 02/20/2023 2:01 PM [employer] COMPLETE BLOOD COUNT W/ DIFFERENTIAL Routine 02/20/2023 2:01 PM [employer] FECAL OCCULT BLOOD, STOOL Routine 02/20/2023 8:58 AM [employer] HEMOGLOBIN Routine 02/20/2023 7:26 AM [employer] UA W/ CX Routine 02/20/2023 6:38 AM [employer] URINALYSI W/REFLEX CULTURE Routine 02/20/2023 6:38 AM [employer] URINE CULTURE Routine 02/20/2023 6:38 AM [employer] .CBC Routine 02/20/2023 12:51 AM [employer] COMPLETE BLOOD COUNT W/ DIFFERENTIAL Routine 02/20/2023 12:51 AM [employer] PHOSPHORUS LEVEL Routine 02/20/2023 12:5 1 AM [employer] MAGNESIUM LEVEL Routine 02/20/2023 12:51 AM [employer] BASIC METABOLIC PANEL, CALCIUM TOTAL Routine 02/20/2023 12:51 AM [employer] EKG, 12-LEAD (PORTABLE) STAT 02/20/2023 POC VENOUS BLOOD GAS + LACTATE Routine 02/19/2023 8:16 PM [employer] RESPIRATORY MULTIPLEX PCR PANEL, NASOPHARYNGEAL SWAB Routine 02/19/2023 7:32 PM [employer] POC VENOUS BLOOD GAS + LACTATE Routine 02/19/2023 6:55 PM [employer] HISTORICAL ABORH STAT 02/19/2023 6:49 PM [employer] .CBC Routine 02/19/2023 6:33 PM [employer] TYPE AND SCREEN STAT 02/19/2023 6:33 PM [employer] APTT Routine 02/19/2023 6:33 PM [employer] PROTHROMBIN TIME Routine 02/19/2023 6:33 PM [employer] PHOSPHORUS LEVEL Routine 02/19/2023 6:33 PM [employer] MAGNESIUM LEVEL Routine 02/19/2023 6:33 PM [employer] COMPREHENSIVE METABOLIC PANEL Routine 02/19/2023 6:33 PM [employer] COMPLETE BLOOD COUNT W/ DIFFERENTIAL Routine 02/19/2023 6:33 PM [employer] INTRALUMINAL GASTROINTESTINAL TRACT IMAGING OF ESOPHAGUS THROUGH ILEUM 12/23/2022 5:25 PM CDT Iron deficiency anemia, not otherwise specified DIFFERENTIAL Routine 12/19/2022 3:47 PM CDT Iron deficiency anemia, not otherwise specified .CBC Routine 12/19/2022 3:47 PM CDT Iron deficiency anemia, not otherwise specified SEDIMENTATION RATE NON-AUTOMATED Routine 12/19/2022 3:47 PM CDT Postmenopausal androgenetic alopecia ANTINUCLEAR ANTIBODY HEP-2 SUBSTRATE IGG Routine 12/19/2022 3:47 PM CDT Postmenopausal androgenetic alopecia TRANSFERRIN Routine 12/19/2022 3:47 PM CDT Iron deficiency anemia, not otherwise specified FERRITIN Routine 12/19/2022 3:47 PM CDT Iron deficiency anemia, not otherwise specified IRON LEVEL Routine 12/19/2022 3:47 PM CDT Iron deficiency anemia, not otherwise specified COMPLETE BLOOD COUNT W/ DIFFERENTIAL Routine 12/19/2022 3:47 PM CDT Iron deficiency anemia, not otherwise specified FREE THYROXINE Routine 12/19/2022 3:34 PM CDT Postmenopausal androgenetic alopecia THYROID STIMULATING HORMONE Routine 12/19/2022 3:34 PM CDT Postmenopausal androgenetic alopecia US CHEST Routine 11/29/2022 1:05 PM CDT Infiltrating duct carcinoma, 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; 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 US BREAST COMPLETE RIGHT Routine 11/29/2022 1:05 PM CDT Infiltrating duct carcinoma, 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; 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 ECHOCARDIOGRAM 2D COMPLETE W CONTRAST Routine 11/11/2022 2:14 PM CDT Hypertension Dyslipidemia Localized edema Surveillance following treatment with high risk medication Palpitations MAMMO DIGITAL DIAGNOSTIC BILATERAL W DON Routine 11/11/2022 12:09 PM CDT Infiltrating duct carcinoma, 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; 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 DEXA BONE MINERAL DENSITY BOTH HIPS AND SPINE Routine 11/11/2022 10:41 AM CDT Infiltrating duct carcinoma, 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; 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 DIFFERENTIAL Routine 10/14/2022 10:00 AM CDT Iron deficiency anemia, not otherwise specified .CBC Routine 10/14/2022 10:00 AM CDT Iron deficiency anemia, not otherwise specified LIPID PANEL Routine 10/14/2022 10:00 AM CDT Hypertension Dyslipidemia Localized edema Surveillance following treatment with high risk medication Palpitations TRANSFERRIN Routine 10/14/2022 10:00 AM CDT Iron deficiency anemia, not otherwise specified FERRITIN Routine 10/14/2022 10:00 AM CDT Iron deficiency anemia, not otherwise specified IRON LEVEL Routine 10/14/2022 10:00 AM CDT Iron deficiency anemia, not otherwise specified COMPLETE BLOOD COUNT W/ DIFFERENTIAL Routine 10/14/2022 10:00 AM CDT Iron deficiency anemia, not otherwise specified DIFFERENTIAL Routine 08/30/2022 10:14 AM CDT Iron deficiency anemia, not otherwise specified .CBC Routine 08/30/2022 10:14 AM CDT Iron deficiency anemia, not otherwise specified TRANSFERRIN Routine 08/30/2022 10:14 AM CDT Iron deficiency anemia, not otherwise specified FERRITIN Routine 08/30/2022 10:14 AM CDT Iron deficiency anemia, not otherwise specified IRON LEVEL Routine 08/30/2022 10:14 AM CDT Iron deficiency anemia, not otherwise specified COMPLETE BLOOD COUNT W/ DIFFERENTIAL Routine 08/30/2022 10:14 AM CDT Iron deficiency anemia, not otherwise specified after 07/15/2022 Results * Pathology Biopsy Interpretation (07/06/2023 11:19 AM CDT) Only the most recent of3 resultswithin the time period is included. Submitted Clinical History A: irritated IN B: irritated IN 07/07/2023 1:28 PM CDT [facility] Diagnosis A: Skin, left upper chest, shave: Melanocytic nevus, predominantly intradermal type, inflamed, present at tissue edge. B: Skin, right posterior neck, shave: Melanocytic nevus, predominantly intradermal type, inflamed, focally present at tissue edge. 07/07/2023 1:28 PM CDT [facility] Gross Description A: Skin, l upper chest - irritated in: A nodular pham-yellow skin shave measuring 0.6 x 0.6 x 0.15 cm. The specimen is inked, bisected, entirely submitted in A1. GM B: Skin, r posterior neck - irritated in: A nodular pham-white skin shave measuring 0.6 x 0.4 x 0.15 cm. The specimen is inked, bisected, entirely submitted in B1. GM 07/07/2023 1:28 PM CDT [facility] Disclaimer "Some tests reported here may have been developed and performance characteristics determined by [facility]. These tests have not been specifically cleared or approved by the U.S. Food and Drug Administration. If applicable, controls were reviewed and showed appropriate reactivity." 07/07/2023 1:28 PM CDT [facility] Tissue (Skin) 07/06/2023 11: 19 AM CDT 07/06/2023 12:59 PM CDT Tissue specimen (specimen) (Skin) 07/06/2023 11:19 AM CDT 07/06/2023 12:59 PM CDT Irena Rogers MD LAB PATHOLOGY ORDERA NOA [facility] [address] [place] [address], * (ABNORMAL) .CBC (06/22/2023 9:32 AM CDT) Only the most recent of18 resultswithin the time period is included. White Blood Cell 7.1 4.1 - 10.5 K/uL 06/22/2023 9:43 AM CDT [facility] Red Blood Cell 3.98(L) 3.99 - 5.46 M/uL 06/22/2023 9:43 AM CDT [facility] Hemoglobin 11.9(L) 12.2 - 15.3 g/dL 06/22/2023 9:43 AM CDT [facility] Hematocrit 35.7(L) 36.4 - 46.8 % 06/22/2023 9:43 AM CDT [facility] Mean Cell Volume 90 82 - 99 fL 06/22/2023 9:43 AM CDT [facility] Mean Cell Hemoglobin 29.9 26.6 - 33.2 pg 06/22/2023 9:43 AM CDT [facility] Mean Cell Hemoglobin Concentration 33.3 31.1 - 35.2 g/dL 06/22/2023 9:43 AM CDT [facility] RDW-SD 46.3 37.5 - 49.7 fL 06/22/2023 9:43 AM CDT [facility] Red Cell Diameter Width 14.1 11.6 - 15.5 % 06/22/2023 9:43 AM T [facility] Platelet 354 160 - 397 K/uL 06/22/2023 9:43 AM CDT [facility] Mean Platelet Volume 9.5 9.1 - 12.6 fL 06/22/2023 9:43 AM CDT [facility] INRBC 0.0 0.0 - 0.1 /100 WBC 06/22/2023 9:43 AM T [facility] Comment: The INRBC (instrument NRBC) value reflects the enumeration of nucleated red blood cells contained in a 200uL sample of whole blood analyzed by the instrument. This value may differ from the NRBC value reported in a manual differential, which is based on a 100 cell differential. Neutrophil % 63.4 43.2 - 72.7 % 06/22/2023 9:43 AM CDT [facility] Lymphocyte % 25.5 16.8 - 46.2 % 06/22/2023 9:43 AM CDT [facility] Monocyte % 7.3 5.1 - 12.5 % 06/22/2023 9:43 AM [facility] Eosinophil % 2.7 0.4 - 6.3 % 06/22/2023 9:43 AM [facility] Basophil % 0.8 0.2 - 1.4 % 06/22/2023 9:43 AM CDT [facility] IGRE % 0.3 0.1 - 1.5 % 06/22/2023 9:43 AM T [facility] Comment:The IGRE% includes M etamyelocytes, Myelocytes and Promyelocytes. Neutrophil Abs 4.49 1.95 - 7.25 K/uL 06/22/2023 9:43 AM CDT [facility] Lymphocyte Abs 1.81 1.01 - 3.24 K/uL 06/22/2023 9:43 AM CDT [facility] Monocyte Abs 0.52 0.24 - 0.85 K/uL 06/22/2023 9:43 AM CDT [facility] Eosinophil Abs 0.19 0.02 - 0.50 K/uL 06/22/2023 9:43 AM CDT [facility] Basophil Abs 0.06 0.02 - 0.09 K/uL 06/22/2023 9:43 AM CDT [facility] IG Abs 0.02 0.01 - 0.12 K/uL 06/22/2023 9:43 AM CDT [facility] Blood Peripheral blood specimen / Unknown Venipuncture / Unknown 06/22/2023 9:32 AM CDT 06/22/2023 9:34 AM CDT S[employer] Kessler ARTURO LAB BLOOD ORDERABLES [facility] Unless otherwise noted, all lab tests performed by: Division of Pathology and Laboratory Medicine [address] [place] [id number] * (ABNORMAL) Hepatic Function Panel (06/22/2023 9:32 AM CDT) Bilirubin Total 0.3 0.0 - 1.2 mg/dL 06/22/2023 1:31 PM CDT [facility] Comment:Indocyanine Green (I CG) may cause falsely elevated bilirubin results. Total and direct bilirubin must not be measured from samples containing indocyanine green. False elevation of total bilirubin can be seen in patients with IgG concentrations above 28 g/L. Bilirubin Direct <0.2 0.0 - 0.3 mg/dL 06/22/2023 1:31 PM CDT [facility] Comment:Indocyanine Green (I CG) may cause falsely elevated bilirubin results. Total and direct bilirubin must not be measured from samples containing indocyanine green. Bilirubin Indirect 2023 1:31 PM CDT [facility] Comment:Unable to calculate Tot Protein 6.5 6.4 - 8.3 gm/dL 06/22/2023 1:31 PM CDT [facility] Alkaline Phosphatase 139(H) 35 - 104 U/L 06/22/2023 1:31 PM CDT [facility] Albumin Level 4.3 3.5 - 5.2 gm/dL 06/22/2023 1:31 PM CDT [facility] AST 16 <=32 U/L 06/22/2023 1:31 PM CDT [facility] ALT 8 <=33 U/L 06/22/2023 1:31 PM CDT [facility] Blood Peripheral blood specimen / Unknown Venipuncture / Unknown 06/22/2023 9:32 AM CDT 06/22/2023 9:34 AM CDT Chico Mahoney MD LAB BLOOD ORDERABLES [facility] Unless otherwise noted, all lab tests performed by: Division of Pathology and Laboratory Medicine [address] [place] [id number] * (ABNORMAL) Basic Metabolic Panel- Total Calcium (06/22/2023 9:32 AM CDT) Only the most recent of7 resultswithin the time period is included. eGFR 52(L) >=60 mL/min/1. 73 sq. m 06/22/2023 12:44 PM CDT [facility] Comment: The eGFRcr is calculated with the 2020 CKD-EPI creatinine equation using creatinine, patient's age, and sex for adults 18 years of age and older. Other factors, especially muscle mass, may affect accuracy and need to be considered. According to the Kidney Disease: Improving Global Outcomes (KDIGO) CKD Work Group 2012 Clinical Practice Guideline, chronic kidney disease (CKD) is defined as the abnormalities of kidney structure or function, present for more than 3 months, with implications for health. CKD should be classified by cause, GFR category, and albuminuria category. KDIGO guidelines provide the following GFR categories. Stage / Description / GFR mL/min/1.73 m2: G1* / Normal or high / >= 90 G2* / Mildly decreased / 60-89 G3a / Mildly to moderately decreased / 45-59 G3b / Moderately to severely decreased / 30-44 G4 / Severely decreased / 15-29 G5 / Kidney failure / <15 *In the absence of evidence of kidney damage, neither G1 nor G2 fulfill criteria for CKD. Calcium Level Total 9.4 8.2 - 10.2 mg/dL 06/22/2023 12:44 PM CDT [facility] Sodium Level 139 136 - 145 mmol/L 06/22/2023 12:44 PM CDT [facility] Potassium Level 4.3 3.4 - 4.5 mmol/L 06/22/2023 12:44 PM CDT [facility] Chloride 105 98 - 107 mmol/L 06/22/2023 12:44 PM CDT [facility] CO2 18(L) 22 - 29 mmol/L 06/22/2023 12:44 PM CDT [facility] Anion Gap 16(H) 4 - 14 mmol/L 06/22/2023 12:44 PM CDT [facility] Creatinine 1.13(H) 0.51 - 0.95 mg/dL 06/22/2023 12:44 PM CDT [facility] BUN 21 6 - 23 mg/dL 06/22/2023 12:44 PM CDT [facility] Glucose Level 94 70 - 99 mg/dL 06/22/2023 12:44 PM CDT [facility] Comment: Effective 11/04/15, the glucose reference intervals have been updated based on [employer] guidelines (Standards of Medical Care in Diabetes 2016. Diabetes Care 2016; 39: S13-S22). Fasting blood glucose: Normal: 70-99 mg/dL Impaired fasting glucose (increased risk for diabetes or pre-diabetes): 100-125 mg/dL Diabetes mellitus: >/=126 mg/dL Random blood glucose: Normal: 70-199 mg/dL Note: Random glucose >100 mg/dL is associated with increased risk for diabetes. Blood Peripheral blood specimen / Unknown Venipuncture / Unknown 06/22/2023 9:32 AM CDT 06/22/2023 9:34 AM CDT Chico Mahoney MD LAB BLOOD ORDERABLES [facility] Unless otherwise noted, all lab tests performed by: Division of Pathology and Laboratory Medicine [address] [place] [id number] * (ABNORMAL) Vitamin D 25OH (06/22/2023 9:32 AM CDT) Vitamin D 25 OH 28(L) 30 - 100 ng/mL 06/22/2023 6:10 PM CDT [facility] Blood Peripheral blood specimen / Unknown Venipuncture / Unknown 06/22/2023 9:32 AM CDT 06/22/2023 9:34 AM CDT Narrative [facility] - 06/22/2023 6:10 PM CDT Reference Range: Deficiency: <=20 ng/mL Insufficiency: 21-29 ng/mL Sufficiency: 30-100 ng/mL Potential toxicity: >100 ng/mL Chico Mahoney MD LAB BLOOD ORDERABLES [facility] Unless otherwise noted, all lab tests performed by: Division of Pathology and Laboratory Medicine [address] [place] [id number] * Transferrin with TIBC (06/22/2023 9:32 AM CDT) Only the most recent of6 resultswithin the time period is included. Transferrin 214 200 - 360 mg/dL 06/22/2023 10:21 AM CDT [facility] Total Iron Binding Capacity 300 250 - 450 mcg/dL 06/22/2023 10:21 AM CDT [facility] Blood Peripheral blood specimen / Unknown Venipuncture / Unknown 06/22/2023 9:32 AM CDT 06/22/2023 9:34 AM CDT Sapphire Kessler APRN LAB BLOOD ORDERABLES [facility] Unless otherwise noted, all lab tests performed by: Division of Pathology and Laboratory Medicine [address] [place] [phone] * TSH (06/22/2023 9:32 AM CDT) Only the most recent of3 resultswithin the time period is included. Thyroid Stimulating Hormone 2.77 0.27 - 4.20 mcunit/mL 06/22/2023 4:23 PM CDT [facility] Blood Peripheral blood specimen / Unknown Venipuncture / Unknown 06/22/2023 9:32 AM CDT 06/22/2023 9:34 AM CDT Sapphire Kessler APRN LAB BLOOD ORDERABLES Performing Organization Address City/[facility]/ZIP Co de Phone Number [facility] Unless otherwise noted, all lab tests performed by: Division of Pathology and Laboratory Medicine [address] [place] [id number] * Free T4 (06/22/2023 9:32 AM CDT) Only the most recent of3 resultswithin the time period is included. T4 (Thyroxine) Free 1.05 0.93 - 1.70 ng/dL 06/22/2023 4:23 PM CDT [facility] Blood Peripheral blood specimen / Unknown Venipuncture / Unknown 06/22/2023 9:32 AM CDT 06/22/2023 9:34 AM CDT Sapphire Kessler APRN LAB BLOOD ORDERABLES Performing Organization Address [facility] Co de Phone Number [facility] Unless otherwise noted, all lab tests performed by: Division of Pathology and Laboratory Medicine [address] [place] [phone] * Phosphorus Level (06/22/2023 9:32 AM CDT) Only the most recent of12 resultswithin the time period is included. Phosphorus Level 3.9 2.5 - 4.5 mg/dL 06/22/2023 6:10 PM CDT [facility] Blood Peripheral blood specimen / Unknown Venipuncture / Unknown 06/22/2023 9:32 AM CDT 06/22/2023 9:34 AM CDT Chico Mahoney MD LAB BLOOD ORDERABLES [facility] Unless otherwise noted, all lab tests performed by: Division of Pathology and Laboratory Medicine [address] [place] [id number] * Magnesium Level (06/22/2023 9:32 AM CDT) Only the most recent of12 resultswithin the time period is included. Magnesium Level 1.7 1.6 - 2.6 mg/dL 06/22/2023 12:44 PM CDT [facility] Blood Peripheral blood specimen / Unknown Venipuncture / Unknown 06/22/2023 9:32 AM CDT 06/22/2023 9:34 AM CDT Chico Mahoney MD LAB BLOOD ORDERABLES [facility] Unless otherwise noted, all lab tests performed by: Division of Pathology and Laboratory Medicine [address] [place] [address] * Iron Level (06/22/2023 9:32 AM CDT) Only the most recent of6 resultswithin the time period is included. Iron Level 71 37 - 145 mcg/dL 06/22/2023 10:21 AM CDT [facility] Is patient fasting? Yes 06/22/2023 10:21 AM CDT [facility] Blood Peripheral blood specimen / Unknown Venipuncture / Unknown 06/22/2023 9:32 AM CDT 06/22/2023 9:34 AM CDT Sapphire Kessler APRN LAB BLOOD ORDERABLES [facility] Unless otherwise noted, all lab tests performed by: Division of Pathology and Laboratory Medicine [address] [place] [id number] [facility] Unless otherwise noted, all lab tests performed by: Division of Pathology and Laboratory Medicine [address] [place] [id number] * GGT (06/22/2023 9:32 AM CDT) GGT (Gamma Glutamyl Transferase) 20 5 - 36 U/L 06/22/2023 6:10 PM CDT [facility] Blood Peripheral blood specimen / Unknown Venipuncture / Unknown 06/22/2023 9:32 AM CDT 06/22/2023 9:34 AM CDT [place] Mahoney MD LAB BLOOD ORDERABLES [facility] Unless otherwise noted, all lab tests performed by: Division of Pathology and Laboratory Medicine [address] [place] [id number] * Ferritin Level (06/22/2023 9:32 AM CDT) Only the most recent of6 resultswithin the time period is included. [facility] Ferritin Level 92 13 - 150 ng/mL 06/22/2023 10:52 AM CDT [facility] Blood Peripheral blood specimen / Unknown Venipuncture / Unknown 06/22/2023 9:32 AM CDT 06/22/2023 9:34 AM CDT Narrative [facility] - 06/22/2023 10:52 AM CDT Reference range established for age 17 - 60 years Sapphire Kessler APRN LAB BLOOD ORDERABLES Performing Organization Address City/[facility]/ZIP Co de Phone Number [facility] Unless otherwise noted, all lab tests performed by: Division of Pathology and Laboratory Medicine [address] [place] [id number] * (ABNORMAL) Comprehensive Metabolic Panel (02/24/2023 3:19 AM [employer]) Only the most recent of5 resultswithin the time period is included. [facility] Bilirubin Total 0.3 <=1.2 mg/dL 02/24/2023 4:31 AM [employer] [facility] Comment: Indocyanine Green (ICG) may cause falsely elevated bilirubin results. Total and direct bilirubin must not be measured from samples containing indocyanine green. False elevation of total bilirubin can be seen in patients with IgG concentrations above 28 g/L. This result was previously suppressed from the chart. Bilirubin Direct <0.2 <=0.3 mg/dL 02/24/2023 4:31 AM [employer] [facility] Comment: Indocyanine Green (ICG) may cause falsely elevated bilirubin results. Total and direct bilirubin must not be measured from samples containing indocyanine green. This result was previously suppressed from the chart. Bilirubin Indirect 2022 4:31 AM [facility] Comment:Unable to calculate Indirect Bilirubin result due to some parameters are outside reportable range eGFR 49(L) >=60 mL/min/1. 73 sq. m 02/24/2023 4:31 AM [facility] Comment: The eGFRcr is calculated with the 2020 CKD-EPI creatinine equation using creatinine, patient's age, and sex for adults 18 years of age and older. Other factors, especially muscle mass, may affect accuracy and need to be considered. According to the Kidney Disease: Improving Global Outcomes (KDIGO) CKD Work Group 2012 Clinical Practice Guideline, chronic kidney disease (CKD) is defined as the abnormalities of kidney structure or function, present for more than 3 months, with implications for health. CKD should be classified by cause, GFR category, and albuminuria category. KDIGO guidelines provide the following GFR categories. Stage / Description / GFR mL/min/1.73 m2: G1* / Normal or high / >= 90 G2* / Mildly decreased / 60-89 G3a / Mildly to moderately decreased / 45-59 G3b / Moderately to severely decreased / 30-44 G4 / Severely decreased / 15-29 G5 / Kidney failure / <15 *In the absence of evidence of kidney damage, neither G1 nor G2 fulfill criteria for CKD. Tot Protein 5.7(L) 6.4 - 8.3 gm/dL 02/24/2023 4:31 AM [facility] Comment:This result was prev iously suppressed from the chart. Calcium Level Total 8.9 8.2 - 10.2 mg/dL 02/24/2023 4:31 AM [facility] Comment:This result was prev iously suppressed from the chart. Alkaline Phosphatase 106(H) 35 - 104 U/L 02/24/2023 4:31 AM [facility] Comment:This result was prev iously suppressed from the chart. Albumin Level 3.5 3.5 - 5.2 gm/dL 02/24/2023 4:31 AM [facility] Comment:This result was prev iously suppressed from the chart. AST 15 <=32 U/L 02/24/2023 4:31 AM [facility] Comment:This result was prev iously suppressed from the chart. ALT 9 <=33 U/L 02/24/2023 4:31 AM [facility] Comment:This result was prev iously suppressed from the chart. Sodium Level 142 136 - 145 mmol/L 02/24/2023 4:31 AM [facility] Comment:This result was prev iously suppressed from the chart. Potassium Level 4.3 3.4 - 4.5 mmol/L 02/24/2023 4:31 AM [facility] Comment:This result was prev iously suppressed from the chart. Chloride 109(H) 98 - 107 mmol/L 02/24/2023 4:31 AM [facility] Comment:This result was prev iously suppressed from the chart. CO2 26 22 - 29 mmol/L 02/24/2023 4:31 AM [facility] Comment:This result was prev iously suppressed from the chart. Anion Gap 7 4 - 14 mmol/L 02/24/2023 4:31 AM [facility] Comment:This result was prev iously suppressed from the chart. Creatinine 1.18(H) 0.51 - 0.95 mg/dL 02/24/2023 4:31 AM [facility] Comment:This result was prev iously suppressed from the chart. BUN 12 6 - 23 mg/dL 02/24/2023 4:31 AM [facility] Comment:This result was prev iously suppressed from the chart. Glucose Level 104(H) 70 - 99 mg/dL 02/24/2023 4:31 AM [facility] Comment: Effective 11/04/15, the glucose reference intervals have been updated based on [employer] guidelines (Standards of Medical Care in Diabetes 2016. Diabetes Care 2016; 39: S13-S22). Fasting blood glucose: Normal: 70-99 mg/dL Impaired fasting glucose (increased risk for diabetes or pre-diabetes): 100-125 mg/dL Diabetes mellitus: >/=126 mg/dL Random blood glucose: Normal: 70-199 mg/dL Note: Random glucose >100 mg/dL is associated with increased risk for diabetes. This result was previously suppressed from the chart. Blood Peripheral blood specimen / Unknown Venipuncture / Unknown 02/24/2023 3:19 AM [employer] 02/24/2023 3:28 AM [employer] Farheen Encinas APRN LAB BLOOD ORDERABLES [facility] Unless otherwise noted, all lab tests performed by: Division of Pathology and Laboratory Medicine [address] [place] [address] * Type and Screen (02/24/2023 3:19 AM [employer]) Only the most recent of2 resultswithin the time period is included. ABORh O POS 02/24/2023 2:00 AM [employer] [facility] - TRANSF[facility]ION [facility] ABSC Negative 02/24/2023 2:00 AM [employer] [facility] Clot Expiration 02/27/2023 23:59 02/24/2023 2:00 AM [employer] [facility] Historical Record Check Complete 02/24/2023 2:00 AM [employer] [facility] Blood Peripheral blood specimen / Unknown Venipuncture / Unknown 02/24/2023 3:19 AM [employer] 02/24/2023 3:28 AM [employer] Chico Aguilar MD BLOOD BANK TEST ORDE MARTHA Performing Organization Address City/[facility]/ZIP Co de Phone Number [facility] - TRANSF[facility]ION SERVICES [facility]fusion [facility] [address] [place] [address] [id number] [place] [address] * XR Abdomen 1 View Portable (02/23/2023 8:25 AM [employer]) Anatomical Region Laterality Modality Abdomen Digital Radiogra phy 02/23/2023 8:45 AM [employer] Impressions 02/23/2023 8:58 AM [employer] Nonobstructive bowel gas pattern. Radiopacity projecting over the left mid abdomen, likely to represent the endoscopy capsule. Consider continued attention on follow-up studies. Small left pleural effusion with left basilar atelectasis/airspace opacities. Narrative 02/23/2023 8:58 AM [employer] FULL RESULT: Examination: XR ABDOMEN 1 VW PORTABLE on 02/23/2023 8:25 AM Clinical History: Melena Indication: Other:, S/P capsule endoscopy. Evaluate for retention Comparison: None. TECHNIQUE: XR ABDOMEN 1 VW PORTABLE FINDINGS: Nonobstructive bowel gas pattern. Positive contrast is seen within the urinary bladder, likely from recent contrast injection. Radiopacity is seen projecting over the left mid abdomen. Small left pleural effusion and left basilar atelectasis/airspace opacities. Bilateral axillary surgical clips. Cholecystectomy clips. Procedure Note Rell Pacheco MD - 02/23/2023 FULL RESULT: Examination: XR ABDOMEN 1 VW PORTABLE on 02/23/2023 8:25 AM Clinical History: Melena Indication: Other:, S/P capsule endoscopy. Evaluate for retention Comparison: None. TECHNIQUE: XR ABDOMEN 1 VW PORTABLE FINDINGS: Nonobstructive bowel gas pattern. Positive contrast is seen within theurinary bladder, likely from recent contrast injection. Radiopacity isseen projecting over the left mid abdomen. Small left pleural effusion andleft basilar atelectasis/airspace opacities. Bilateral axillary surgicalclips. Cholecystectomy clips. IMPRESSION: Nonobstructive bowel gas pattern. Radiopacity projecting over the left mid abdomen, likely to represent theendoscopy capsule. Consider continued attention on follow-up studies. Small left pleural effusion with left basilar atelectasis/airspaceopacities. Chico Aguilar MD IMG DIAGNOSTIC IMAGI NG ORDERABLES * CT Soft Tissue Neck with Contrast (02/22/2023 10:41 PM [employer]) Anatomical Region Laterality Modality Neck Computed Tomogra phy 02/22/2023 11:0 7 PM [employer] Impressions 02/23/2023 6:23 AM [employer] 1. 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 2. No suspicious cervical adenopathy. ACTIONABLE ITEMS/RECOMMENDATIONS: None. I personally reviewed these image(s) along with the resident's/fellow's interpretations, certify that if a procedure was performed I was physically present, and agree with the final report. Narrative 02/23/2023 6:23 AM [employer] FULL RESULT: Examination: CT SOFT TISSUE NECK W CONTRAST on 02/22/2023 10:41 PM. CLINICAL HISTORY: Melena INDICATION: Neck soft tissue neoplasm (known or suspected), Right nodularity (possibly from thyroid) and left submandibular palpable lymphadenopathy COMPARISON: None. TECHNIQUE: CT neck with IV contrast was performed. FINDINGS: Visualized brain and orbits reveal no acute findings. In the midline, just beneath the hyoid bone, a multilocular rim-enhancing cystic structure is visualized measuring approximately 0.8 x 1.5 x 1.6 cm (AP by transverse by CC). Based upon its location and probably represents a thyroglossal duct cyst. Given the rim-like enhancement, an infected thyroglossal cyst cannot be excluded and this finding can be followed sonographically. This structure was not visualized on ultrasound neck dated 12/08/2021. However this area was not fully interrogated at that time. Lymph nodes: There are no suspicious cervical lymph nodes. Other findings: The upper aerodigestive tract is unremarkable. The major salivary glands are unremarkable. Subcentimeter inferior right thyroid nodule. Mucosal thickening of the left sphenoid sinus. The cervical arteries and veins are patent. The visualized brain parenchyma is unremarkable. The visualized lung apices are clear. Procedure Note Jet Banks MD - 02/23/2023 FULL RESULT: Examination: CT SOFT TISSUE NECK W CONTRAST on 02/22/2023 10:41 PM. CLINICAL HISTORY: Melena INDICATION: Neck soft tissue neoplasm (known or suspected), Rightnodularity (possibly from thyroid) and left submandibular palpablelymphadenopathy COMPARISON: None. TECHNIQUE: CT neck with IV contrast was performed. FINDINGS: Visualized brain and orbits reveal no acute findings. In the midline, just beneath the hyoid bone, a multilocular rim-enhancingcystic structure is visualized measuring approximately 0.8 x 1.5 x 1.6 cm(AP by transverse by CC). Based upon its location and probably representsa thyroglossal duct cyst. Given the rim-like enhancement, an infectedthyroglossal cyst cannot be excluded and this finding can be followed sonographically. This structure was not visualized onultrasound neck dated 12/08/2021. However this area was not fullyinterrogated at that time. Lymph nodes: There are no suspicious cervical lymph nodes. Other findings: The upper aerodigestive tract is unremarkable. The major salivary glands are unremarkable. Subcentimeter inferior right thyroid nodule. Mucosal thickening of the left sphenoid sinus. The cervical arteries and veins are patent. The visualized brain parenchyma is unremarkable. The visualized lung apices are clear. IMPRESSION: 1. 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 2. No suspicious cervical adenopathy. ACTIONABLE ITEMS/RECOMMENDATIONS: None. I personally reviewed these image(s) along with the resident's/fellow'sinterpretations, certify that if a procedure was performed I wasphysically present, and agree with the final report. Chico Aguilar MD IMG CT ORDERABLES * LDH (02/22/2023 4:44 AM [employer]) Only the most recent of2 resultswithin the time period is included. Pathologist [facility] LDH 165 135 - 214 U/L 02/22/2023 5:35 AM [employer] [facility] Blood Peripheral blood specimen / Unknown Venipuncture / Unknown 02/22/2023 4:44 AM [employer] 02/22/2023 5:02 AM [employer] Narrative [facility] - 02/22/2023 5:35 AM [employer] Results greater than 1651 U/L may not be reliable due to matrix effect with extended dilution as it exceeds the head waiter's recommended limit. Caution should be exercised when interpreting such values and done in conjunction with clinical context. Farheen Encinas APRN LAB BLOOD ORDERABLES [facility] Unless otherwise noted, all lab tests performed by: Division of Pathology and Laboratory Medicine [address] [place] [id number] * Transfuse RBC:Transfusion Date: 02/20/2023 (02/21/2023 4:44 AM [employer]) Cyril GARRISON BLOOD TRANSFUSION OR DERABLES * Prepare RBC:P604, 1 Units (02/20/2023 10:30 PM [employer]) Product Code [id number] [facility] - TRANSF[facility] Product Code Text Red Blood Cells [facility] QTY Ordered [address] [facility] Dispense Status Transfused [facility] Unit Expiration [id number] [facility] Unit Number [id number] [facility]SF[facility]ION [facility] Unit Blood Type O+ [facility] Bag Volume [address] [facility] XM Interpretation Compatible U T [facility] - TRANSFUSION SERVICES Unit Blood Type Barcode [address] [facility] PRBC Product Ready For Wet End Helper B2 Blood Bank [facility] RBC Product Status 1 RBC approved [facility] Comment:Order Form 03 when r simba for product issue. Blood Cyril GARRISON BLOOD BANK PRODUCT O RDERABLES [facility] TRAN[facility]ION [facility] Transfusion Services [id number] [place] [address] * (ABNORMAL) Fecal Occult Blood, Stool (02/20/2023 8:58 AM [employer]) Fecal Occult Blood Positive( A) Negative 02/20/2023 2:30 PM [employer] [facility] Comment:A positive result in dicates the presence of hemoglobin in the submitted fecal specimen. A positive result should not be considered conclusive evidence of the presence of GI bleeding or pathology. Recommend clinical correlation and further studies to establish the source of bleeding. Stool Rectum structure / Unknown Non-blood Collection / Unknown 02/20/2023 8:58 AM [employer] 02/20/2023 9:37 AM [employer] Narrative [facility] - 02/20/2023 2:30 PM [employer] Fecal occult blood testing is performed using a qualitative immunoassay to specifically detect the presence of hemoglobin in human feces. The fecal immunochemical test (FIT) is performed on the [employer] Micro 80 iFOB from [employer]. This is an FDA-approved assay and its performance characteristics were verified by the microbiology laboratory at the [facility]. Results must be interpreted within the context of all relevant clinical and laboratory findings. Scott Spangler MD MICROBIOLOGY - GENER AL ORDERABLES [facility] Unless otherwise noted, all lab tests performed by: Division of Pathology and Laboratory Medicine [address] [place] [id number] * (ABNORMAL) Hemoglobin (02/20/2023 7:26 AM [employer]) [facility] Hemoglobin 8.0(L) 12.2 - 15.3 g/dL 02/20/2023 7:51 AM [employer] [facility] Blood Peripheral blood specimen / Unknown Venipuncture / Unknown 02/20/2023 7:26 AM [employer] 02/20/2023 7:46 AM [employer] Cee Garcia APRN LAB BLOOD ORDERABL ES Performing Organization Address [facility] Co de Phone Number [facility] Unless otherwise noted, all lab tests performed by: Division of Pathology and Laboratory Medicine [address] [place] [phone] * (ABNORMAL) Urinalysis with Reflex Culture (02/20/2023 6:38 AM [employer]) [facility] Urine Appearance Clear Clear 02/21/20 8:43 AM [employer] [facility] Comment:This result was prev iously suppressed from the chart. Urine Color Colorless Colorless, Straw, Yellow, Dark Yellow, Straw-Yellow 02/20/2023 8:43 AM [facility] Comment:This result was prev iously suppressed from the chart. Urine Specific [place] 1.011 1.003 - 1.035 02/20/2023 8:43 AM [facility] Comment:This result was prev iously suppressed from the chart. Urine pH 6.0 5.0 - 9.0 02/20/2023 8:43 AM [facility] Comment:This result was prev iously suppressed from the chart. Urine Glucose Negative Negative mg/dL 02/20/2023 8:43 AM [facility] Comment:This result was prev iously suppressed from the chart. Urine Ketones Negative Negative mg/dL 02/20/2023 8:43 AM [facility] Comment:This result was prev iously suppressed from the chart. Urine Blood Negative Negative 02/20/2023 8:43 AM [facility] Comment:This result was prev iously suppressed from the chart. Urine Protein Negative Negative mg/dL 02/20/2023 8:43 AM [facility] Comment:This result was prev iously suppressed from the chart. Urine Bilirubin Negative Negative 8:43 AM [facility] Urine Urobilinogen Negative Negative 02/20/2023 8:43 AM [facility] Urine Nitrite Negative Negative 02/20/2023 8:43 AM [facility] Comment:This result was prev iously suppressed from the chart. Urine Leukocyte Esterase Small(A) Negative 02/20/2023 8:43 AM [facility] Comment:This result was prev iously suppressed from the chart. Urine Mucous Trace Not Seen, Trace /HPF 02/20/2023 8:43 AM [facility] Comment:This result was prev iously suppressed from the chart. Urine Bacteria Not Seen Not Seen /HPF 02/20/2023 8:43 AM [facility] Comment:This result was prev iously suppressed from the chart. Urine Squamous Epithelial Cells OCC Not Seen, OCC, Rare /HPF 02/20/2023 8:43 AM [facility] Comment:This result was prev iously suppressed from the chart. Urine WBC 4(H) <=2 /HPF 02/20/2023 8:43 AM [facility] Urine RBC 1 <=2 /HPF 02/20/2023 8:43 AM [facility] Urine (Urine Clean Catch) Non-blood Collection / Unknown 02/20/2023 6:38 AM [employer] 02/20/2023 7:29 AM [facility] Narrative [facility] - 02/20/2023 8:43 AM [facility] Some reporting parameters within the Urinalysis test have changed due to the implementation of new instrumentation in the Main [place], allowing greater sensitivity of measurement. Urinalysis results reported by the [facility] using existing instrumentation, as well as Urinalysis testing performed manually or by back-up methodology at the main [facility], will remain relatively unchanged. New reporting parameters and units will now be reported for all campuses. Cee Garcia APRN URINE ORDERABLES Performing Organization Address City/[facility]/ZIP Co de Phone Number [facility] Unless otherwise noted, all lab tests performed by: Division of Pathology and Laboratory Medicine [address] [place] [id number] * Urine Culture (02/20/2023 6:38 AM [employer]) Urine Culture Normal site julissa present. Generally of low significance. Correlate with clinical data and culture history. 02/22/2023 2:27 PM [employer] [facility] Urine (Urine Clean Catch) Non-blood Collection / Unknown 02/20/2023 6:38 AM [employer] 02/20/2023 7:29 AM [employer] Cee Garcia APRN MICROBIOLOGY - GEN ERAL ORDERABLES Performing Organization Address [facility] Co de Phone Number [facility] Unless otherwise noted, all lab tests performed by: Division of Pathology and Laboratory Medicine [address] [place] [id number] * EKG, 12-Lead (Portable) (02/20/2023) Scott Spangler MD ECG ORDERABLES Performing Organization Address [facility] Co de Phone Number [facility] * (ABNORMAL) POC VBG+LAC (02/19/2023 8:16 PM [employer]) Only the most recent of2 resultswithin the time period is included. POC VB pH. 7.323 7.310 - 7.410 02/19/2023 8:19 PM [employer] [facility] POC VB pCO2. 41.8 41.0 - 51.0 mmHg 02/19/2023 8:19 PM [employer] [facility] POC VB pO2. 21 mmHg 02/19/2023 8:19 PM [employer] [facility] POC VB TCO2 23(L) 24 - 29 mEq/L 02/19/2023 8:19 PM [employer] [facility] POC VB Bicarb 21.7(L) 23.0 - 28.0 mmol/L 02/19/2023 8:19 PM [employer] [facility] POC VB Base Excess -4(L) -2 - 3 mmol/L 02/19/2023 8:19 PM [facility] POC VB O2 Sat 31 % 02/19/2023 8:19 PM [facility] POC VB LAC 1.00 0.90 - 1.70 mmol/L 02/19/2023 8:19 PM [facility] POC FiO2 02/19/2023 8:19 PM [facility] POC Sample Type Venous 02/19/2023 8:19 PM [facility] Blood 02/19/2023 8:16 PM [employer] 02/19/2023 8:19 PM [employer] [employer] [facility] [place] - 02/19/2023 8:19 PM [employer] Method description: The i-STAT is an analyzer used for in vitro quantification of various analytes in whole blood. The device uses a single disposable cartridge which contains microfabricated sensors, a calibration solution, fluidics system, and a waste chamber. Each test cartridge contains chemically sensitive biosensors on a silicon chip that are configured to perform specific tests. The microfabricated sensors measure analyte concentration by an electrochemical assay. Scott Spangler MD POCT ORDERABLES - DE VICE [facility] Unless otherwise noted, all lab tests performed by: Division of Pathology and Laboratory Medicine [address] [place] [id number] * Respiratory Multiplex PCR Panel, Nasopharyngeal Swab (02/19/2023 7:32 PM [employer]) Adenovirus Not Detected Not Detected 02/19/2023 9:19 PM [facility] Coronavirus 229E Not Detected Not Detected 02/19/2023 9:19 PM [facility] Coronavirus HKU1 Not Detected Not Detected 02/19/2023 9:19 PM [facility] Coronavirus NL63 Not Detected Not Detected 02/19/2023 9:19 PM [facility] Coronavirus OC43 Not Detected Not Detected 02/19/2023 9:19 PM [facility] COVID-19 (SARS-CoV-2) Not Detected Not Detected 02/19/2023 9:19 PM [facility] Human Metapneumovirus Not Detected Not Detected 02/19/2023 9:19 PM [facility] Human Rhinovirus/Enterov irus Not Detected Not Detected 02/19/2023 9:19 PM [facility] Influenza A Not Detected Not Detected 02/19/2023 9:19 PM [facility] Influenza A H1 Not Detected Not Detected 02/19/2023 9:19 PM [facility] Influenza A H1 2009 Not Detected Not Detected 02/19/2023 9:19 PM [facility] Influenza A H3 Not Detected Not Detected 02/19/2023 9:19 PM [facility] Influenza B Not Detected Not Detected 02/19/2023 9:19 PM [facility] Parainfluenza Virus 1 Not Detected Not Detected 02/19/2023 9:19 PM [facility] Parainfluenza Virus 2 Not Detected Not Detected 02/19/2023 9:19 PM [facility] Parainfluenza Virus 3 Not Detected Not Detected 02/19/2023 9:19 PM [facility] Parainfluenza Virus 4 Not Detected Not Detected 02/19/2023 9:19 PM [facility] Respiratory Syncytial Virus Not Detected Not Detected 02/19/2023 9:19 PM [facility] Bordetella parapertussis Not Detected Not Detected 02/19/2023 9:19 PM [facility] Bordetella pertussis Not Detected Not Detected 02/19/2023 9:19 PM [facility] Chlamydophila pneumoniae Not Detected Not Detected 02/19/2023 9:19 PM [facility] Mycoplasma pneumoniae Not Detected Not Detected 02/19/2023 9:19 PM [facility] Swab Nasopharyngeal structure / Unknown Non-blood Collection / Unknown 02/19/2023 7:32 PM [employer] 02/19/2023 7:58 PM [employer] [facility] [place] - 02/19/2023 9:19 PM [employer] The assay is a qualitative multiplex PCR assay to aid in the diagnosis of respiratory pathogens through simultaneous qualitative detection and identification of multiple pathogens directly from nasopharyngeal swabs (TUBING M[employer]TER) from individuals with respiratory symptoms. Testing is performed using the In Loco MediaArray Respiratory Panel 2.1 (RP2.1) on the BoardV[employer] System. The following organisms are identified using the [employer] RP 2.1 Panel: Adenovirus, Human Coronavirus (229E, HKU1, NL63, and OC43), Severe Acute Respiratory Syndrome Coronavirus 2 (SARS-CoV-2), Human Metapneumovirus, Human Rhinovirus/Enterovirus, Influenza A, including subtypes (H1, H3 and H1-2009), Influenza B, Parainfluenza Virus (1, 2, 3, and 4), Respiratory Syncytial Virus, Bordetella parapertussis, Bordetella pertussis, Chlamydia pneumoniae, and Mycoplasma pneumoniae A result of Not Detected" does not exclude the possibility of the presence of one or more of the pathogens at or below the detection limits of this assay nor does exclude the possibility of pathogens not detected by this panel. Non-infectious causes of respiratory symptoms should also be considered in such cases. Internal controls are used to monitor all stages of the testing process including amplification inhibition. If inhibition is detected, testing is repeated and if inhibition is confirmed the specimen is resulted as "Invalid". When an "Invalid" result occurs, it is recommended to wait 3 days before submitting a new specimen for testing if clinically indicated. This is an FDA-approved assay and its performance characteristics were verified by the microbiology laboratory at the [facility] (CLIA Accreditation # [id number] and CAP Accreditation # [id number]). Results must be interpreted within the context of all relevant clinical and laboratory findings. Assay should not be used for monitoring response to therapy. Scott Spangler MD MICROBIOLOGY - [facility] AL ORDERABLES [facility] Unless otherwise noted, all lab tests performed by: Division of Pathology and Laboratory Medicine [address] [place] [id number] * Historical ABORh (02/19/2023 6:49 PM [employer]) ABORh O POS 02/19/2023 6:50 PM [employer] [facility] - TRANSFUSION SERVICES Blood Peripheral blood specimen / Unknown 02/19/2023 6:49 PM [employer] 02/19/2023 6:49 PM [employer] Scott Spangler MD BLOOD BANK TEST CHRISTEL THOMAS Performing Organization Address [facility]/ZIP Co de Phone Number [facility] - TRANSFUSION SERVICES [facility] Transfusion Services [address] [place] [address] [id number] [place] [address] * aPTT (02/19/2023 6:33 PM [employer]) Pathologist [facility] Activated PTT 29.9 24.1 - 35.5 second(s) 02/19/2023 7:20 PM [employer] [facility] Blood Peripheral blood specimen / Unknown Venipuncture / Unknown 02/19/2023 6:33 PM [employer] 02/19/2023 6:45 PM [employer] Scott Spangler MD LAB BLOOD ORDERABLES Performing Organization Address [facility] Co de Phone Number [facility] Unless otherwise noted, all lab tests performed by: Division of Pathology and Laboratory Medicine [address] [place] [id number] * Prothrombin Time with INR (02/19/2023 6:33 PM [employer]) Pathologist [facility] Prothrombin Time 13.1 11.9 - 14.5 second(s) 02/19/2023 7:20 PM [employer] [facility] International Normalization Ratio 1.00 0.87 - 1.12 02/19/2023 7:20 PM [employer] [facility] Blood Peripheral blood specimen / Unknown Venipuncture / Unknown 02/19/2023 6:33 PM [employer] 02/19/2023 6:45 PM [employer] Scott Spangler MD LAB BLOOD ORDERABLES Performing Organization Address [place]/[facility] Co de Phone Number [facility] Unless otherwise noted, all lab tests performed by: Division of Pathology and Laboratory Medicine [address] [place] [id number] * (ABNORMAL) Antinuclear Antibody (TA) HEp-2 Substrate, IgG (12/19/2022 3:47 PM CDT) [facility] TA HEp-2 Substrate Positive 1:160(A) <1:80 (Negativ e) [facility] Comment: ADDITIONAL INFORMATION Method: Immunofluorescence using HEp-2 cellular substrate. TA Titer 1:[address] [facility] TA Pattern Speckled [facility] Comment: Test Performed by: [facility] [address] [place] [address] Telephone Triage Nurse: Massimo Vallecillo M.D. Ph.D.; CLIA# [id number] Blood 12/19/2022 3:47 PM CDT 12/19/2022 8:12 PM CDT Irena Rogers MD LAB BLOOD ORDERABLES [facility] Unless otherwise noted, all lab tests performed by: Division of Pathology and Laboratory Medicine [address] [place] [id number] * Differential (12/19/2022 3:47 PM CDT) Only the most recent of3 resultswithin the time period is included. [facility] Neutrophil % 68.3 43.2 - 72.7 % [place] Comment:All components of th e Differential performed at [facility], [address] [place] [address] Lymphocyte % 20.5 16.8 - 46.2 % [place] Comment:As part of Different ial, testing performed at [facility], [address] [place] [address] Monocyte % 8.9 5.1 - 12.5 % [place] Comment:As part of Different ial, testing performed at [facility], [address] [place] [address] Eosinophil % 1.9 0.4 - 6.3 % [place] [facility] Comment:As part of Different ial, testing performed at [facility], [address] [place], [place] [id number] Basophil % 0.4 0.2 - 1.4 % [place] Comment:As part of Different ial, testing performed at [facility], [address] [place] [address] Neutrophil Abs 5.86 1.95 - 7.25 K/uL [place] Comment:As part of Different ial, testing performed at [facility], [address] [place] [address] Lymphocyte Abs 1.76 1.01 - 3.24 K/uL [place] Comment:As part of Different ial, testing performed at [facility], [address] [place] [address] Monocyte Abs 0.76 0.24 - 0.85 K/uL [place] Comment:As part of Different ial, testing performed at [facility], [address] [place] [address] Eosinophil Abs 0.16 0.02 - 0.50 K/uL [place] Comment:As part of Different ial, testing performed at [facility], [address] [place] [address] Basophil Abs 0.03 0.02 - 0.09 K/uL [place] Comment:As part of Different ial, testing performed at [facility], [address] [place] [address] Blood 12/19/2022 3:47 PM CDT 12/19/2022 3:55 PM CDT Sapphire Kessler APRN LAB BLOOD ORDERABLES [address], [address] [place] [id number] * Sed Rate (12/19/2022 3:47 PM CDT) Sed Rate 13 0 - 20 mm/hr [place] Comment:Testing performed at [facility], [address] [place] [address] Blood 12/19/2022 3:47 PM CDT 12/19/2022 3:55 PM CDT Irena Rogers MD LAB BLOOD ORDERABLES FRANCESCA COREY [facility] Francesca Corey [address] [facility] [address], [address] [place] [address] * US Chest for Breast Ultrasound (Add-on Only) (11/29/2022 1:05 PM CDT) Anatomical Region Laterality Modality Chest Ultrasound 11/29/2022 1:48 PM CDT Impressions 11/29/2022 1:48 PM CDT 1: Post surgical scar in the right breast upper outer quadrant at 10 o'clock located 6 centimeters from the nipple is benign. 2: There is no sonographic correlate to mammography finding. Therefore, note recommendation for breast MRI per mammogram report 11/11/2022. BI-RADS Category 2: Benign Finding(s) Narrative 11/29/2022 1:48 PM CDT CLINICAL INDICATION: Patient is a 72 year old female and is seen for additional imaging requested FILMS COMPARED The present examination has been compared to a prior imaging study performed at [facility] on 11/11/2022. Images were obtained in multiple scanning planes. Real-time sonographic imaging of the right breast (including all 4 quadrants and retroareolar region) was performed. Real time sonographic imaging of the right axilla was performed. Real-time sonographic imaging of the right regional brandi basins including ultrasound of the chest/mediastinum to evaluate the axillary (level I,II,III) and internal mammary regions was performed. 1: There is a post surgical scar in the right breast upper outer quadrant at 10 o'clock located 6 centimeters from the nipple. No suspicious mass. 2: Additional evaluation was performed for the area of nodularity in the right breast, 11 to 12 o'clock seen on 11/11/2022. There is no sonographic correlation. Right Regional Brandi Basins: No suspicious axillary levels I, II, III (infraclavicular) or internal mammary lymph node is identified. Procedure Note Cristal Watson DO - 11/29/2022 CLINICAL INDICATION: Patient is a 72 year old female and is seen for additional imagingrequested FILMS COMPARED The present examination has been compared to a prior imaging studyperformed at [facility] on 11/11/2022. Images were obtained in multiple scanning planes. Real-time sonographic imaging of the right breast (including all 4quadrants and retroareolar region) was performed. Real time sonographic imaging of theright axilla was performed. Real-time sonographic imaging of the right regionalnodal basins including ultrasound of the chest/mediastinum to evaluate theaxillary (level I,II,III) and internal mammary regions was performed. 1: There is a post surgical scar in the right breast upper outer quadrantat 10 o'clock located 6 centimeters from the nipple. No suspicious mass. 2: Additional evaluation was performed for the area of nodularity in theright breast, 11 to 12 o'clock seen on 11/11/2022. There is no sonographiccorrelation. Right Regional Brandi Basins: No suspicious axillary levels I, II, III (infraclavicular) or internal mammary lymph node is identified. IMPRESSION: 1: Post surgical scar in the right breast upper outer quadrant at 10o'clock located 6 centimeters from the nipple is benign. 2: There is no sonographic correlate to mammography finding. Therefore,note recommendation for breast MRI per mammogram report 11/11/2022. BI-RADS Category 2: Benign Finding(s) Yenphi Uribe TALLIER IMG US ORDERABLES * US Breast Complete Right (11/29/2022 1:05 PM CDT) Anatomical Region Laterality Modality Breast Right Ultrasound 11/29/2022 1:48 PM CDT Impressions 11/29/2022 1:48 PM CDT 1: Post surgical scar in the right breast upper outer quadrant at 10 o'clock located 6 centimeters from the nipple is benign. 2: There is no sonographic correlate to mammography finding. Therefore, note recommendation for breast MRI per mammogram report 11/11/2022. BI-RADS Category 2: Benign Finding(s) Narrative 11/29/2022 1:48 PM CDT CLINICAL INDICATION: Patient is a 72 year old female and is seen for additional imaging requested FILMS COMPARED The present examination has been compared to a prior imaging study performed at [facility] on 11/11/2022. Images were obtained in multiple scanning planes. Real-time sonographic imaging of the right breast (including all 4 quadrants and retroareolar region) was performed. Real time sonographic imaging of the right axilla was performed. Real-time sonographic imaging of the right regional brandi basins including ultrasound of the chest/mediastinum to evaluate the axillary (level I,II,III) and internal mammary regions was performed. 1: There is a post surgical scar in the right breast upper outer quadrant at 10 o'clock located 6 centimeters from the nipple. No suspicious mass. 2: Additional evaluation was performed for the area of nodularity in the right breast, 11 to 12 o'clock seen on 11/11/2022. There is no sonographic correlation. Right Regional Brandi Basins: No suspicious axillary levels I, II, III (infraclavicular) or internal mammary lymph node is identified. Procedure Note Cristal Watson, DO - 11/29/2022 CLINICAL INDICATION: Patient is a 72 year old female and is seen for additional imagingrequested FILMS COMPARED The present examination has been compared to a prior imaging studyperformed at [facility] on 11/11/2022. Images were obtained in multiple scanning planes. Real-time sonographic imaging of the right breast (including all 4quadrants and retroareolar region) was performed. Real time sonographic imaging of theright axilla was performed. Real-time sonographic imaging of the right regionalnodal basins including ultrasound of the chest/mediastinum to evaluate theaxillary (level I,II,III) and internal mammary regions was performed. 1: There is a post surgical scar in the right breast upper outer quadrantat 10 o'clock located 6 centimeters from the nipple. No suspicious mass. 2: Additional evaluation was performed for the area of nodularity in theright breast, 11 to 12 o'clock seen on 11/11/2022. There is no sonographiccorrelation. Right Regional Brandi Basins: No suspicious axillary levels I, II, III (infraclavicular) or internal mammary lymph node is identified. IMPRESSION: 1: Post surgical scar in the right breast upper outer quadrant at 10o'clock located 6 centimeters from the nipple is benign. 2: There is no sonographic correlate to mammography finding. Therefore,note recommendation for breast MRI per mammogram report 11/11/2022. BI-RADS Category 2: Benign Finding(s) Yosef Uribe TALLIER IMG US ORDERABLES * Echocardiogram 2D Complete with Contrast (11/11/2022 2:14 PM CDT) 11/11/2022 1:18 PM CDT Narrative ISCV - 11/11/2022 3:24 PM CDT Echocardiographic Report Interpretation Summary A complete two-dimensional transthoracic echocardiogram was performed (2D, M- mode, Doppler and color flow Doppler). The study was technically adequate and no significant change is noted compared to the previous study. The left ventricle is normal in size. Left ventricular systolic function is normal. Microbubble enhanced LVEF using the Bi-plane method of disks method is 60-65%. There is no pericardial effusion. Left Ventricle: The left ventricle is normal in size. Left ventricular systolic function is normal. Microbubble enhanced LVEF using the Bi-plane method of disks method is 60-65%. I WMSI = 1.00 % Normal = 100 Segments Size X - Cannot 2 - 1-2 small Interpret 1 - Normal Hypokinetic 3 - Akinetic 4 - Dyskinetic3- 5 moderate 5 - Aneurysmal 6-14 large 15-16 diffuse Cardiac Mechanics/Speckle Tracking Imaging: Speckle tracking imaging was not performed in this study. ([place] Study). Right Ventricle: The right ventricle is normal in size and function. Normal RV systolic function using TAPSE criteria. Atria: Atria are normal in size. Mitral Valve: The mitral valve is normal in structure and function. Tricuspid Valve: The tricuspid valve is not well visualized, but is grossly normal. Right ventricular systolic pressure is normal. There is trace tricuspid regurgitation. Aortic Valve: The aortic valve is not well visualized. The aortic valve opens well. Pulmonic Valve: The pulmonic valve is not well visualized. Great Vessels: The aortic root is normal size. The inferior vena cava demonstrates normal size and normal respiratory variation. Pericardium/Pleural: There is no pericardial effusion. MMode/2D Measurements IVSd: 0.81 cm LVIDd: 3.7 cm LVIDs: 2.2 cm LVPWd: 0.68 cm FS: 41.2 % Ao root diam: 2.5 cm Ao root area: 4.7 cm2 LA dimension: 3.5 cm LVOT diam: 1.9 cm EDV(MOD-A4C): 54.5 ml LVOT area: 2.9 cm2 ESV(MOD-A4C): 20.1 ml EF(MOD-A4C): 63.2 % EDV(MOD-A2C): 68.7 ml ESV(MOD-A2C): 25.7 ml EDV(MOD-bp): 61.5 ml EF(MOD-A2C): 62.6 % ESV(MOD-bp): 23.3 ml EF(MOD-bp): 62.1 % LAV(MOD-A2C): 47.7 ml LAV(MOD-A4C): 64.2 ml EDV (MOD-bp) Index: 33.3 ml/m2 LAV(MOD-bp): 56.5 ml LAV(MOD-bp) Indexed: 30.6 ml/m2 ESV (MOD-bp) Index: 12.6 ml/m2 RWT: 0.37 cm TAPSE (>1.6): 1.9 cm Doppler Measurements MV E max rizwana: 85.5 cm/sec MV V2 max: 97.1 cm/sec MV A max rizwana: 93.7 cm/sec MV max P.8 mmHg MV E/A: 0.91 MV V2 mean: 54.0 cm/sec MV mean P.4 mmHg MV V2 VTI: 27.0 cm MVA(VTI): 2.4 cm2 MV dec time: 0.22 sec Ao V2 max: 124.0 cm/sec Ao max P.2 mmHg Ao V2 mean: 80.8 cm/sec Ao mean P.9 mmHg Ao V2 VTI: 24.7 cm NI(I,D): 2.7 cm2 NI(V,D): 2.4 cm2 LV V1 max P.2 mmHg SV(LVOT): 65.5 ml LV V1 mean P.1 mmHg LV V1 max: 102.8 cm/sec LV V1 mean: 68.2 cm/sec LV V1 VTI: 22.9 cm PA V2 max: 103.9 cm/sec Med Peak E' Riz[place]ana: 4.6 cm/sec PA max P.3 mmHg PA V2 mean: 65.0 cm/sec PA mean P.9 mmHg PA V2 VTI: 20.2 cm Lat Peak E' Rizwana: 5.9 cm/sec TR max rizwana: 225.8 cm/sec TR max P.4 mmHg RV S Vel_phl: 10.6 cm/sec NI Index (I,D): 1.4 NI Index (V,D): 1.3 Dimensionless Index: 0.83 E/e' (avg): 16.1 E/e' (lat): 14.4 E/e' (sept): 18.4 Procedure Note Tung Quintero MD - 11/11/2022 Echocardiographic Report Interpretation Summary A complete two-dimensional transthoracic echocardiogram was performed (2D,M- mode, Doppler and color flow Doppler). The study was technicallyadequate and no significant change is noted compared to the previousstudy. The left ventricle is normal in size. Left ventricular systolic function is normal. Microbubble enhanced LVEF using the Bi-plane method of disks method is60-65%. There is no pericardial effusion. Left Ventricle: The left ventricle is normal in size. Left ventricular systolic functionis normal. Microbubble enhanced LVEF using the Bi-plane method of disksmethod is 60-65%. I WMSI = 1.00 % Normal = 100 Segments Size X - Cannot 2 - 1-2small Interpret 1 - Normal Hypokinetic 3 - Akinetic 4 - Dyskinetic3-5moderate 5 - Aneurysmal6-14 large 15-16 diffuse Cardiac Mechanics/Speckle Tracking Imaging: Speckle tracking imaging was not performed in this study. (PhilipsStudy). Right Ventricle: The right ventricle is normal in size and function. Normal RV systolicfunction using TAPSE criteria. Atria: Atria are normal in size. Mitral Valve: The mitral valve is normal in structure and function. Tricuspid Valve: The tricuspid valve is not well visualized, but is grossly normal. Rightventricular systolic pressure is normal. There is trace tricuspidregurgitation. Aortic Valve: The aortic valve is not well visualized. The aortic valve opens well. Pulmonic Valve: The pulmonic valve is not well visualized. Great Vessels: The aortic root is normal size. The inferior vena cava demonstrates normalsize and normal respiratory variation. Pericardium/Pleural: There is no pericardial effusion. MMode/2D Measurements IVSd: 0.81 cmLVIDd: 3.7 cm LVIDs: 2.2 cm LVPWd: 0.68 cm FS: 41.2 %Ao root diam: 2.5 cm Ao root area: 4.7 cm2 LA dimension: 3.5 cm LVOT diam: 1.9 cmEDV(MOD-A4C): 54.5 ml LVOT area: 2.9 cm2ESV(MOD-A4C): 20.1 ml EF(MOD-A4C): 63.2 % EDV(MOD-A2C): 68.7 ml ESV(MOD-A2C): 25.7 mlEDV(MOD-bp): 61.5 ml EF(MOD-A2C): 62.6 %ESV(MOD-bp): 23.3 ml EF(MOD-bp): 62.1 % LAV(MOD-A2C): 47.7 ml LAV(MOD-A4C): 64.2 mlEDV (MOD-bp) Index: 33.3 ml/m2 LAV(MOD-bp): 56.5 ml LAV(MOD-bp) Indexed: 30.6 ml/m2 ESV (MOD-bp) Index: 12.6 ml/m2RWT: 0.37 cm TAPSE (>1.6): 1.9 cm Doppler Measurements MV E max rizwana: 85.5 cm/secMV V2 max: 97.1 cm/sec MV A max rizwana: 93.7 cm/secMV max P.8 mmHg MV E/A: 0.91MV V2 mean: 54.0 cm/sec MV mean P.4 mmHg MV V2 VTI: 27.0 cm MVA(VTI): 2.4 cm2 MV dec time: 0.22 secAo V2 max: 124.0 cm/sec Ao max P.2 mmHg Ao V2 mean: 80.8 cm/sec Ao mean P.9 mmHg Ao V2 VTI: 24.7 cm NI(I,D): 2.7 cm2 NI(V,D): 2.4 cm2 LV V1 max P.2 mmHgSV(LVOT): 65.5 ml LV V1 mean P.1 mmHg LV V1 max: 102.8 cm/sec LV V1 mean: 68.2 cm/sec LV V1 VTI: 22.9 cm PA V2 max: 103.9 cm/secMed Peak E' Rizwana: 4.6 cm/sec PA max P.3 mmHg PA V2 mean: 65.0 cm/sec PA mean P.9 mmHg PA V2 VTI: 20.2 cm Lat Peak E' Rizwana: 5.9 cm/secTR max rizwana: 225.8 cm/sec TR max P.4 mmHg RV S Vel_phl: 10.6 cm/secAVA Index (I,D): 1.4 NI Index (V,D): 1.3Dimensionless Index: 0.83 E/e' (avg): 16.1E/e' (lat): 14.4 E/e' (sept): 18.4 Sujye Hobson APRN CV ECHO ORDERABL ES ISCV * (ABNORMAL) Mammography Digital Diagnostic Bilateral with Don (11/11/2022 12:09 PM CDT) Anatomical Region Laterality Modality Breast Bilateral Mammography 11/11/2022 12:2 2 PM CDT Impressions 11/11/2022 12:22 PM CDT 1: Area of nodularity in the right breast upper hemisphere at 11 to 12 o'clock located 8 centimeters from the nipple requires additional imaging evaluation. An ultrasound exam and possible biopsy is recommended. 2: Stable stereotactic clip in the right breast upper hemisphere at 12 o'clock is benign. 3: Calcifications in both breasts are benign. 4: Post surgical scars in both breasts are benign. BI-RADS Category 0: Incomplete: Needs Additional Imaging Evaluation Narrative 11/11/2022 12:22 PM CDT CLINICAL INDICATION: Patient is a 72 year old female and is seen for history of breast cancer MAMMO DIGITAL DIAGNOSTIC BILATERAL W DON Digital Mammogram evaluated with Computer Aided Detection (CAD). COMPARISON: The present examination has been compared to prior imaging studies performed at [facility] on 09/30/2020, and at [facility] on 10/22/2018, 10/25/2019, 05/28/2021 and 11/19/2021. FINDINGS: There are scattered areas of fibroglandular density. 1: There is an area of nodularity in the right breast upper hemisphere at 11 to 12 o'clock located 8 centimeters from the nipple. If ultrasound fails to see an abnormality, breast MRI can be performed for further evaluation. 2: There is a stable stereotactic clip in the right breast upper hemisphere at 12 o'clock. 3: There are benign appearing and fat necrosis calcifications in both breasts. 4: There are post surgical scars with associated surgical clips in both breasts. Tomosynthesis performed in CC and MLO projections. Procedure Note Jessie Mcguire MD - 11/11/2022 CLINICAL INDICATION: Patient is a 72 year old female and is seen for history of breast cancer MAMMO DIGITAL DIAGNOSTIC BILATERAL W DON Digital Mammogram evaluated with Computer Aided Detection (CAD). COMPARISON: The present examination has been [facility] to [facility], and at [facility] on 10/22/2018, 10/25/2019, 05/28/2021 and11/19/2021. FINDINGS: There are scattered areas of fibroglandular density. 1: There is an area of nodularity in the right breast upper hemisphere at11 to 12 o'clock located 8 centimeters from the nipple. If ultrasound fails to see an abnormality, breast MRI can be performedfor further evaluation. 2: There is a stable stereotactic clip in the right breast upperhemisphere at 12 o'clock. 3: There are benign appearing and fat necrosis calcifications in bothbreasts. 4: There are post surgical scars with associated surgical clips in bothbreasts. Tomosynthesis performed in CC and MLO projections. IMPRESSION: 1: Area of nodularity in the right breast upper hemisphere at 11 to 12o'clock located 8 centimeters from the nipple requires additional imagingevaluation. An ultrasound exam and possible biopsy is recommended. 2: Stable stereotactic clip in the right breast upper hemisphere at 12o'clock is benign. 3: Calcifications in both breasts are benign. 4: Post surgical scars in both breasts are benign. BI-RADS Category 0: Incomplete: Needs Additional Imaging Evaluation Yosef Uribe TALLIER IMG MAMMOGRAPHY ORDE MARTHA * NM Bone Mineral Density Both Hips and Spine (11/11/2022 10:41 AM CDT) Anatomical Region Laterality Modality Spine Nuclear Medicine 11/11/2022 10:4 5 AM CDT Impressions 11/11/2022 10:53 AM CDT 1. Osteopenia based on measurements at all sites analyzed. 2. No significant interval change in bone mass. I personally reviewed these image(s) along with the resident's/fellow's interpretations, certify that if a procedure was performed I was physically present, and agree with the final report. Narrative 11/11/2022 10:53 AM CDT FULL RESULT: Examination: Bone Mineral Density (DXA), 11/11/2022 12:00 AM Clinical History: 72-year-old postmenopausal female treated for breast cancer. Indication: Assessment of bone mineral density. Comparison: 11/19/2021. Technique: Bone mineral density was obtained using Hologic dual-energy X-ray absorptiometry. L4 is excluded from analysis as before. Findings: The findings are provided in the below table(s). Bone Density: Region Exam Date BMD T- Z- g/cm2 Score Score AP Spine (L1, L2, L3) 11/11/2022 0.891 -1.2 1.0 Femoral Neck (Left) 11/11/2022 0.623 -2.0 -0.1 Total Hip (Left) 11/11/2022 0.743 -1.6 0.0 Femoral Neck (Right) 11/11/2022 0.630 -2.0 -0.1 Total Hip (Right) 11/11/2022 0.787 -1.3 0.3 For postmenopausal women and men age 50 and over, the World Health Organization criteria for BMD interpretation classify patients as: Normal (T-score at or above -1.0), Osteopenia (T-score between -1.0 and -2.5), or Osteoporosis (T-score at or below -2.5). Previous Exams: Region Exam Age BMD T-score BMD Change vs Date g/cm2 Baseline Previous AP Spine (L1-L3) 11/11/2022 72 0.891 -1.2 -1.2% -1.4% 11/19/2021 71 0.904 -1.0 0.2% 6.4%* 09/30/2020 69 0.849 -1.5 -5.8%* -14.5%* 12/18/2018 68 0.993 -0.2 10.2%* 10.2%* 12/18/2018 68 0.902 -1.1 Total Hip(Left) 11/11/2022 72 0.743 -1.6 6.0%* -0.2% 11/19/2021 71 0.745 -1.6 6.1%* -0.1% 09/30/2020 69 0.745 -1.6 6.2%* 6.2%* 12/18/2018 68 0.701 -2.0 Femoral Neck(Left) 11/11/2022 72 0.623 -2.0 3.2% -2.1% 11/19/2021 71 0.637 -1.9 5.5% 7.6% 09/30/2020 69 0.592 -2.3 -2.0% -2.0% 12/18/2018 68 0.604 -2.2 Total Hip(Right) 11/11/2022 72 0.787 -1.3 2.0% -3.1% 11/19/2021 71 0.812 -1.1 5.2%* -0.2% 09/30/2020 69 0.813 -1.1 5.4%* 5.4%* 12/18/2018 68 0.771 -1.4 Femoral Neck(Right) 11/11/2022 72 0.630 -2.0 -3.5% -1.6% 11/19/2021 71 0.640 -1.9 -1.9% -1.1% 09/30/2020 69 0.648 -1.8 -0.8% -0.8% 12/18/2018 68 0.653 -1.8 *Denotes significance at 95% confidence level, site specific LSC for AP Spine = 0.029 g/cm2, site specific LSC for Total Hip = 0.033 g/cm2, site specific LSC for Femoral Neck = 0.045 g/cm2, LSC for 1/3 Forearm = 0.023 g/cm2 Procedure Note Judy Colon MD - 11/11/2022 FULL RESULT: Examination: Bone Mineral Density (DXA), 11/11/2022 12:00 AM Clinical History: 72-year-old postmenopausal female treated for breastcancer. Indication: Assessment of bone mineral density. Comparison: 11/19/2021. Technique: Bone mineral density was obtained using Hologic cica-ghrzjrW-lji absorptiometry. L4 is excluded from analysis as before. Findings: The findings are provided in the below table(s). Bone Density: Region Exam Date BMD T- Z- g/cm2 Score Score AP Spine (L1, L2, L3) 11/11/2022 0.891 -1.2 1.0 Femoral Neck (Left) 11/11/2022 0.623 -2.0 -0.1 Total Hip (Left) 11/11/2022 0.743 -1.6 0.0 Femoral Neck (Right) 11/11/2022 0.630 -2.0 -0.1 Total Hip (Right) 11/11/2022 0.787 -1.3 0.3 For postmenopausal women and men age 50 and over, the World Health Organization criteria for BMD interpretation classify patients as: Normal (T-score at or above -1.0), Osteopenia (T-score between -1.0 and -2.5), or Osteoporosis (T-score at or below -2.5). Previous Exams: Region Exam Age BMD T-score BMD Change vs Date g/cm2 Baseline Previous AP Spine (L1-L3) 11/11/2022 72 0.891 -1.2 -1.2% -1.4% 11/19/2021 71 0.904 -1.0 0.2% 6.4%* 09/30/2020 69 0.849 -1.5 -5.8%* -14.5%* 12/18/2018 68 0.993 -0.2 10.2%* 10.2%* 12/18/2018 68 0.902 -1.1 Total Hip(Left) 11/11/2022 72 0.743 -1.6 6.0%* -0.2% 11/19/2021 71 0.745 -1.6 6.1%* -0.1% 09/30/2020 69 0.745 -1.6 6.2%* 6.2%* 12/18/2018 68 0.701 -2.0 Femoral Neck(Left) 11/11/2022 72 0.623 -2.0 3.2% -2.1% 11/19/2021 71 0.637 -1.9 5.5% 7.6% 09/30/2020 69 0.592 -2.3 -2.0% -2.0% 12/18/2018 68 0.604 -2.2 Total Hip(Right) 11/11/2022 72 0.787 -1.3 2.0% -3.1% 11/19/2021 71 0.812 -1.1 5.2%* -0.2% 09/30/2020 69 0.813 -1.1 5.4%* 5.4%* 12/18/2018 68 0.771 -1.4 Femoral Neck(Right) 11/11/2022 72 0.630 -2.0 -3.5% -1.6% 11/19/2021 71 0.640 -1.9 -1.9% -1.1% 09/30/2020 69 0.648 -1.8 -0.8% -0.8% 12/18/2018 68 0.653 -1.8 *Denotes significance at 95% confidence level, site specific LSC for APSpine = 0.029 g/cm2, site specific LSC for Total Hip = 0.033 g/cm2, sitespecific LSC for Femoral Neck = 0.045 g/cm2, LSC for 1/3 Forearm = 0.023 g/cm2 IMPRESSION: 1. Osteopenia based on measurements at all sites analyzed. 2. No significant interval change in bone mass. I personally reviewed these image(s) along with the resident's/fellow'sinterpretations, certify that if a procedure was performed I wasphysically present, and agree with the final report. Simonahi Uribe TALLIER IMG DXA ORDERABLES * (ABNORMAL) Lipid Panel (10/14/2022 10:00 AM CDT) Chol 189 <=199 mg/dL [facility] Comment: ATP III Classification of Total Cholesterol Primary Target of Therapy (in mg/dL): <200 Desirable 200-239 Borderline high >=240 High Trig 153(H) <=149 mg/dL [facility] Comment: ATP III Classification of Serum Triglycerides Primary Target of Therapy (in mg/dL): <150 Normal 150-199 Borderline high 200-499 High >=500 Very high Non-fasting triglycerides >200 mg/dL may be followed up with a fasting Lipid Panel. Calculated LDL-C may be falsely decreased when non-fasting triglycerides >200 mg/dL. HDL 56 >=40 mg/dL [facility] LDL 102(H) <=100 mg/dL [facility] Comment: ATP III Classification of LDL Cholesterol Primary Target of Therapy (in mg/dL): <100 Optimal 100-129 Near optimal/above optimal 130-159 Borderline high 160-189 High >=190 Very high VLDL 31 mg/dL [place] MD [facility] Blood 10/14/2022 10:0 0 AM CDT 10/14/2022 10:26 AM CDT Sujey Hobosn APRN LAB BLOOD ORDERA BLES [facility] Unless otherwise noted, all lab tests performed by: Division of Pathology and Laboratory Medicine [facility] [place] [address] after 07/15/2022 Advance Directives Latest Code Status on File Code Status Date Activated Date Inactivated Comments Full Code 02/19/2023 9:32 PM 03/01/2023 7:27 PM Code Status History Code Status Date Activated Date Inactivated Comments Full Code 09/28/2018 4:48 PM 09/29/2018 1:04 PM Care Teams Leather Finisher Relationship Specialty Start Date End Date Merlin Serrato MD PCP - External Follow Up A Internal Medicine 04/05/18 Tamica Craven, TALLIER [address] [place] [id number] PCP - General Breast Medical Oncology 04/23/20 Sujey Hobson APRN [address] [place] [address] [phone] Nurse Practitioner Cardiology 11/27/19 Chacorta Rodriguez DMD [address] [place] [address] [phone] Consulting Physician Dental Oncology 12/03/20 Lauren Rosa MD [address] [place] [address] [phone] Consulting Physician Ophthalmic Plastic 01/11/22 Kevin Umanzor MD [address] [place] [address] [phone] Consulting Physician Ophthalmology 08/30/18 Irena Rogers MD [address] [place] [address] [phone] Consulting Physician Dermatology 07/02/21 Delmy Hobson PA [address] [place] [address] [phone] Physician Special Education Superintendent Surgical Oncology 05/03/18 Taylor Orr MD [address] [place] [address] [phone] Consulting Physician Cardiology 05/29/18 Chico Shin MD [address] [place] [address] [phone] Consulting Physician Surgical Oncology 06/30/20 Chacorta Mclaughlin MD [address] [place] [address] [phone] Consulting Physician Plastic and Reconstructive Surgery 07/26/18 Baudilio Johnson MD [address] [place] [address] [phone] Consulting Physician Gastroenterology, Hepatology and Nutrition 09/06/19 Fany Garcia MD [address] [place] [address] [phone] Consulting Physician Radiation Oncology 10/29/18 Melquiades Seals MD [address] [place] [address] [phone] Consulting Physician Thoracic Surgery 07/16/20 Sapphire Kessler APRN [address] [place] [address] [phone] Nurse Practitioner Hematology 09/06/19 [place] [address] [place] [phone] Consulting Physician Radiation Oncology 12/19/18 Sapphire Castellanos [address] [place] [address] [phone] Family Practice 07/10/23
[2023-07-15] MEDS ORDERED: KETOROLAC 30 MG/ML INJ ONE (16:34)
[2023-07-15] MEDS ORDERED: dexAMETHasone 10 MG/ML VIAL ONE (16:34)
--- NOTE | 2023-07-15 16:48 | RAD REPORT ---
EXAM DESCRIPTION: RAD - Shoulder Left 2 View - 07/15/2023 4:43 pm CLINICAL HISTORY: PAIN COMPARISON: No comparisons FINDINGS/IMPRESSION: No acute fracture. No malalignment. Mild left glenohumeral joint and AC joint d egenerative changes.
--- NOTE | 2023-07-15 17:40 | ER ---
Nurse's Notes [facility] Name: Gifty Loomis Age: 72 yrs Sex: Female : 1950 Arrival Date: 07/15/2023 Time: 14:49 Bed 10 Private MD: Diagnosis: Radiculopathy, cervical region Presentation: 07/14 15:05 Chief complaint: Patient states: Left shoulder pain. Left upper arm rash, woke up this nj1 morning with it. Had an injury a few years ago, was moving furniture two days ago. Took tylenol at 6an today as well as a muscle relaxer with very little relief. Coronavirus screen: Vaccine status: Patient reports receiving the 2nd dose of the covid vaccine. Ebola Screen: Patient denies travel to an Ebola-affected area in the 21 days before illness onset. Initial Sepsis Screen: Does the patient meet any 2 criteria? No. Patient's initial sepsis screen is negative. Does the patient have a suspected source of infection? No. Patient's initial sepsis screen is negative. Risk Assessment: Do you want to hurt yourself or someone else? Patient reports no desire to harm self or others. Onset of symptoms was July 14, 2023. 15:05 Method Of Arrival: Ambulatory [facility] 15:05 Acuity: CELIA 3 nj1 Triage Assessment: 16:58 General: Appears uncomfortable, Behavior is cooperative, anxious. Injury Description: tl4 strain from pushing heavy recliner. Historical: - Allergies: 15:09 tramadol (Upset stomach); nj1 - PMHx: 15:09 breast cancer; nj1 - PSHx: 15:09 bladder repair; Cholecystectomy; ectopic sx; hysterectomy; Left knee nj1 replacement; - Immunization history:: Client reports receiving the 2nd dose of the Covid vaccine. - Infectious Disease History:: Denies. - Social history:: Smoking status: Patient denies any tobacco usage or history of. Screenin:56 [facility] ED Fall Risk Assessment (Adult) History of falling in the last 3 months, tl4 including since admission No falls in past 3 months (0 pts) Confusion or Disorientation No (0 pts) Intoxicated or Sedated No (0 pts) Impaired Gait No (0 pts) Mobility Assist Device Used No (0 pt) Altered Elimination No (0 pt) Score/Fall Risk Level 0 - 2 = Low Risk Oriented to surroundings, Maintained a safe environment, Educated pt \T\ family on fall prevention, incl call for assistance when getting out of bed, Assessed \T\ reinforced patient's understanding of fall precautions, Hourly rounding (assess needs \T\ fall precautionary measures) done, Used ambulatory aids as needed (educated on \T\ assisted with), Used gait belt as appropriate. Abuse screen: Denies threats or abuse. Denies injuries from another. Nutritional screening: No deficits noted. Tuberculosis screening: No symptoms or risk factors identified. Assessment: 16:55 Reassessment: Patient and/or family updated on plan of care and expected duration. Pain tl4 level reassessed. Patient is alert, oriented x 3, equal unlabored respirations, skin warm/dry/pink. Patient states symptoms have not improved. Pain: Complains of pain in face and left arm. Musculoskeletal: Reports pain in left shoulder. 17:53 Reassessment: Patient and/or family updated on plan of care and expected duration. Pain tl4 level reassessed. Patient is alert, oriented x 3, equal unlabored respirations, skin warm/dry/pink. Patient states feeling better. Vital Signs: 15:05 BP 172 / 91; Pulse 82; Resp 18; Temp 97.1(TE); Pulse Ox 100% ; Weight 83.91 kg; Height nj1 5 ft. 2 in. ; Pain 8/10; 16:57 BP 161 / 85; Pulse 78; Resp 18; Pulse Ox 97% on R/A; Pain 10/10; tl4 17:53 BP 147 / 89; Pulse 75; Resp 16; Temp 97.9(TE); Pulse Ox 97% on R/A; Pain 6/10; tl4 15:05 Body Mass Index 33.84 (83.91 kg, 157.48 cm) nj1 15:05 Pain Scale: Adult nj1 16:57 Pain Scale: Adult tl4 17:53 Pain Scale: Adult tl4 Vitals: 16:58 Cardiac Rhythm Assessment Regular Sinus rhythm. tl4 Parul Coma Score: 16:58 Eye Response: spontaneous(4). Motor Response: obeys commands(6). Verbal Response: tl4 oriented(5). Total: 15. ED Course: 14:56 Patient arrived in ED. ra3 15:09 Triage completed. nj1 15:10 Arm band placed on right wrist. nj1 15:15 Cristobal Carolina MD is Attending Physician. radha 16:00 Cinthia Barrow FNP-C is [facility]. kb 16:30 Arnulfo Gibbons RN is Primary Nurse. tl4 16:45 Shoulder Left (2 View) XRAY In Process Unspecified. EDMS 16:57 Patient has correct armband on for positive identification. Placed in gown. Bed in low tl4 position. Call light in reach. Side rails up X 1. Provided Education on: ED process. Client placed on continuous cardiac and pulse oximetry monitoring. NIBP monitoring applied. Door closed. Noise minimized. Lights dimmed. Moved to private room. Warm blanket given. 16:57 No provider procedures requiring assistance completed. Patient did not have IV access tl4 during this emergency room visit. Administered Medications: 16:54 Drug: Ketorolac IM 30 mg IM once Route: IM; Site: right ventrogluteal; tl4 17:55 Follow up: Response: No adverse reaction; Pain is decreased tl4 16:54 Drug: Dexamethasone IM 10 mg IM once Route: IM; Site: right ventrogluteal; tl4 17:55 Follow up: Response: No adverse reaction tl4 Medication: 16:57 VIS not applicable for this client. tl4 Outcome: 17:39 Discharge ordered by . kb 17:55 Discharged to home ambulatory, tl4 17:55 Condition: stable 17:55 Discharge instructions given to patient, Instructed on discharge instructions, follow up and referral plans. medication usage, Demonstrated understanding of instructions, follow-up care, medications, Prescriptions given X 3, 17:55 Patient left the ED. tl4 Signatures: Dispatcher [employer] EDNC Cinthia Barrow FNP-C FNP-Cristobal Gilmore MD MD cha Jaco, Norma RN RN nj1 Arnulfo Gibbons RN RN tl4 Maris Sosa ra3
--- NOTE | 2023-07-15 17:40 | EDPHYS ---
Physician Documentation [facility] Name: Gifty Loomis Age: 72 yrs Sex: Female : 1950 Arrival Date: 07/15/2023 Time: 14:49 Bed 10 Private MD: ED Physician Cristobal Carolina HPI: 07/14 17:46 This 72 yrs old Female presents to ER via Ambulatory with complaints of Shoulder Pain, kb Shoulder Injury. 17:46 Pt is a 72 year old female who presents with left neck and shoulder pain that radiates kb down left arm. States she moved furniture a few days ago and has had the pain since then. States it hasn't gotten any better. Full ROM. Historical: - Allergies: 15:09 tramadol (Upset stomach); nj1 - PMHx: 15:09 breast cancer; nj1 - PSHx: 15:09 bladder repair; Cholecystectomy; ectopic sx; hysterectomy; Left knee nj1 replacement; - Immunization history:: Client reports receiving the 2nd dose of the Covid vaccine. - Infectious Disease History:: Denies. - Social history:: Smoking status: Patient denies any tobacco usage or history of. ROS: 17:46 Constitutional: As per HPI kb Exam: 17:29 Constitutional: This is a well developed, well nourished patient who is awake, alert, kb and in no acute distress. Head/Face: Normocephalic, atraumatic. ENT: Moist Mucous membranes Cardiovascular: Regular rate Respiratory: Respirations even and unlabored. No increased work of breathing. Talking in full sentences Abdomen/GI: Soft, non-tender. No distention Skin: Warm, dry with normal turgor. Normal color. Neuro: Awake and alert, GCS 15, oriented to person, place, time, and situation. Moves all extremities. Normal gait. 17:29 Neck: External neck: tenderness, that is moderate, of the left mid cervical area and left trapezius, 17:29 ECG was reviewed by the Attending Physician. 17:29 Musculoskeletal/extremity: Extremities: grossly normal except: noted in the posterior aspect of left shoulder: pain, tenderness, Vital Signs: 15:05 BP 172 / 91; Pulse 82; Resp 18; Temp 97.1(TE); Pulse Ox 100% ; Weight 83.91 kg; Height nj1 5 ft. 2 in. ; Pain 8/10; 16:57 BP 161 / 85; Pulse 78; Resp 18; Pulse Ox 97% on R/A; Pain 10/10; tl4 17:53 BP 147 / 89; Pulse 75; Resp 16; Temp 97.9(TE); Pulse Ox 97% on R/A; Pain 6/10; tl4 15:05 Body Mass Index 33.84 (83.91 kg, 157.48 cm) nj1 15:05 Pain Scale: Adult nj1 16:57 Pain Scale: Adult tl4 17:53 Pain Scale: Adult tl4 Savannah Coma Score: 16:58 Eye Response: spontaneous(4). Motor Response: obeys commands(6). Verbal Response: tl4 oriented(5). Total: 15. MDM: 15:15 Patient medically screened. radha 17:46 Differential diagnosis: fracture, strain, cervical radiculopathy. Data reviewed: vital kb signs, nurses notes. Counseling: I had a detailed discussion with the patient and/or guardian regarding the historical points, exam findings, and any diagnostic results supporting the discharge/admit diagnosis, radiology results, the need for outpatient follow up, a orthopedic surgeon, to return to the emergency department if symptoms worsen or persist or if there are any questions or concerns that arise at home. 07/14 16:18 Order name: Shoulder Left (2 View) XRAY; Complete Time: 16:51 kb 07/14 16:18 Order name: EKG; Complete Time: 16:19 kb 07/14 16:18 Order name: EKG - Nurse/Tech; Complete Time: 16:54 kb EC:29 Rate is 76 beats/min. Rhythm is regular. QRS [place] is Normal. AR interval is normal at kb 152 msec. QRS interval is normal at 86 msec. QT interval is normal at 411 msec. Administered Medications: 16:54 Drug: Ketorolac IM 30 mg IM once Route: IM; Site: right ventrogluteal; tl4 17:55 Follow up: Response: No adverse reaction; Pain is decreased tl4 16:54 Drug: Dexamethasone IM 10 mg IM once Route: IM; Site: right ventrogluteal; tl4 17:55 Follow up: Response: No adverse reaction tl4 Disposition Summary: 07/15/23 17:39 Discharge Ordered Notes: Location: Home kb Condition: Stable kb Diagnosis - Radiculopathy, cervical region kb Followup: kb - With: Emergency Department - When: As needed - Reason: Worsening of condition Followup: kb - With: Private Physician - When: 2 - 3 days - Reason: Recheck today's complaints, Continuance of care, Re-evaluation by your physician Discharge Instructions: - Discharge Summary Sheet kb - Cervical Radiculopathy, [id number] kb Forms: - Medication Reconciliation Form kb - Thank You Letter kb - Antibiotic Education kb - Prescription Opioid Use kb - Patient Portal Instructions kb - Leadership Thank You Letter kb Prescriptions: - acetaminophen-codeine 300-15 mg Oral tablet - take 1 tablet ORAL route every 4 to 6 hours as needed for pain; 12 tablet; kb Refills: 0, Product Selection Permitted - Prednisone 20 mg Oral Tablet - take 1 tablet ORAL route once daily for 5 days; 5 tablet; Refills: 0, Product kb Selection Permitted - orphenadrine citrate 100 mg Oral Tablet Sustained Release - take 1 tablet ORAL route 2 times per day As needed; 20 tablet; Refills: 0, kb Product Selection Permitted Signatures: Dispatcher [employer] Cinthia Tenorio, HISTOLOGY TECHNOLOGIST-C HISTOLOGY TECHNOLOGIST-Cristobal Gilmore MD MD cha Jaco, Norma, RN RN nj1 Arnulfo Gibbons RN RN tl4
[2023-07-15 23:25] VITALS: BP 147/89; TEMP 97.9; O2SAT 97
--- NOTE | 2023-07-17 12:45 | EKG ---
Test Date: 2023-07-15 Test Time: 16:49:56 Optometrist/Practice Owner: TL MEASUREMENT RESULTS: Intervals: Rate: 76 AL: 152 QRSD: 86 QT: 366 QTc: 411 [place]: P: 30 AL: 152 QRS: 15 T: 27 INTERPRETIVE STATEMENTS: Normal sinus rhythm Normal ECG Compared to ECG 12/29/2017 09:05:42 No significant changes Electronically Signed On 07-17-23 12:41:29 CDT by Jorje Gould
== END 2023-07-15 17:55 | disposition home or self-care (01) ==
LOC: ER 14:49
DX: M54.12 Radiculopathy, cervical region (principal); Z88.5 Allergy status to narcotic agent
CPT/HCPCS: 93005; 73030; 96372; 99284; J1100